=== PATIENT | male | born 1975 | race Caucasian/White ===

== ENCOUNTER 2022-06-18 12:02 | Emergency (ER) | payer OTHER, SELFPAY ==
--- NOTE | ~2022-06-18 | XR_ITS ---
EXAMINATION: XR chest 1V portable DATE: 06/18/2022 12:18 INDICATION: Chest pain TECHNIQUE: frontal view of the chest was obtained. COMPARISON: None FINDINGS: The lungs are clear with no focal airspace opacities, pulmonary edema, pleural effusion or pneumothor ax. The cardiomediastinal silhouette is normal. Visualized bones and soft tissues are unremarkable. IMPRESSION: 1. No acute cardiopulmonary disease. Reviewed, dictated and finalized at location A.
[2022-06-18 12:02] VITALS: BP 153/103; PULSE 81; RESP 18; TEMP 36.9; O2SAT 81
--- NOTE | 2022-06-18 12:04 | ECG_ITS ---
Measurements Intervals [place] Rate: 78 P: 32 AR: 139 QRS: -4 QRSD: 98 T: 63 QT: 394 QTc: 450 Interpretive Statements SINUS RHYTHM MINIMAL Q WAVES- ANTEROLATERAL LEADS BASELINE ARTIFACT- I, III, AVL BORDERLINE ECG NO PREVIOUS ECG AVAILABLE FOR COMPARISON Electronically Signed On 06-18-2022 18:48:12 CDT by Cisco Son D.O.
[2022-06-18 12:05] VITALS: PULSE 81
[2022-06-18] MEDS: ASPIRIN 81 MG CHEWABLE TABLET 324 MG PO (12:16)
[2022-06-18 12:19] LABS: Basophils Absolute Auto 0.06 K/mm3 (0.00-0.10); Basophils Percent Auto 0.8 % (0.0-1.0); Eosinophils Absolute Auto 0.26 K/mm3 (0.02-0.50); Eosinophils Percent Auto 3.6 % (1.0-6.0); Hematocrit 48.5 % (40.0-54.0); Hemoglobin 16.9 g/dL (14.0-18.0); Immature Granulocyte Absolute 0.02 K/mm3 (0.00-0.00); Immature Granulocyte Percent A 0.3 % (0.0-0.0); Lymphocytes Absolute Auto 2.38 K/mm3 (1.10-4.50); Lymphocytes Percent Auto 32.6 % (18.0-42.0); Mean Corpuscular HGB Conc 34.8 g/dL (32.0-36.0); Mean Corpuscular Hemoglobin 31.1 pg (27.0-31.0); Mean Corpuscular Volume 89.3 fL (78.0-102.0); Mean Platelet Volume 10.2 fl (8.7-11.0); Monocytes Absolute Auto 0.93 K/mm3 (0.10-0.90); Monocytes Percent Auto 12.8 % (2.0-11.0); Neutrophils Absolute Auto 3.6 K/mm3 (1.7-7.2); Neutrophils Percent Auto 49.9 % (50.0-70.0); Platelet Count Result 268 K/mm3 (150-420); Red Blood Count 5.43 M/mm3 (4.70-6.10); Red Cell Distribution Width 11.7 % (11.6-14.4); White Blood Count 7.3 K/mm3 (4.8-10.8)
[2022-06-18 12:38] LABS: Alanine Aminotransferase 63 U/L (16-63); Albumin Level 4.2 g/dL (3.4-5.0); Alkaline Phosphatase 99 U/L (46-116); Anion Gap 11 mmol/L (8-16); Aspartate Amino Transferase 27 U/L (15-37); Bilirubin,Total 0.8 mg/dL (0.00-1.00); Blood Urea Nitrogen 8 mg/dL (7-18); Calcium 9.1 mg/dL (8.5-10.1); Carbon Dioxide 25 mmol/L (21-32); Chloride 105 mmol/L (98-108); Estimated Glomerular Filt Rate > 60; Glucose 98 mg/dL (70-99); Osmolality Calculated 290 mOsm/kg (285-295); Potassium 3.8 mmol/L (3.5-5.1); Sodium 141 mmol/L (136-145); Total Protein 7.6 g/dL (6.4-8.2); Troponin I 7.3 ng/L (0.00-60.4)
[2022-06-18 12:40] LABS: Add Urine Microscopic? NO; Appearance Urine Clear (Clear); Bilirubin Urine Negative (Negative); Blood Urine Negative (Negative); Color Urine Light Yellow (Yellow); Glucose Urine UA Negative (Negative); Ketones Urine Negative (Negative); Leukocyte Esterase Ur Negative LEU/UL (Negative); Nitrate Urine Negative (Negative); Protein Urine Negative (Negative); Specific Grav Ur <= 1.005 (1.010-1.020); Urobilinogen Urine 0.2 mg/dL (0.2-1.0); pH Urine 6.5 (5.0-8.0)
[2022-06-18] MEDS: MORPHINE SULFATE (*CRX) 2 MG/ML INJ IV PUSH (12:45)
[2022-06-18] MEDS: ONDANSETRON INJ 4 MG/2 ML VIAL IV PUSH (12:47)
[2022-06-18 12:48] LABS: Amphetamine Screen Urine Negative (Negative); Barbiturate Screen Urine Negative (Negative); Benzodiazepines Screen Urine Negative (Negative); Cannabinoid Screen Urine Negative (Negative); Cocaine Screen Urine Negative (Negative); Methadone Screen Urine Negative (Negative); Opiate Screen Urine Negative (Negative); Phencyclidine Screen Urine Negative (Negative)
--- NOTE | 2022-06-18 12:52 | ED.CHESTPAIN ---
HPI - Chest Pain General Chief Complaint: Chest Pain Stated Complaint: chest pain Time Seen by Provider: 06/18/22 12:27 Source: patient Mode of arrival: ambulatory History of Present Illness HPI narrative: 46-year-old male with a history of smoking, aortic valve disease secondary to bicuspid aortic, cardiac catheterization 4 years ago, anxiety/depression, syncopal spell in the past presents to the ER with -- acute exacerbation of chronic chest pain. The patient has had intermittent chest pain for years. Today he developed substernal chest pain radiating to the shoulders. No nausea/ vomiting. No shortness of breath/lightheadedness. The pain was intermittent with episodes lasting approximately 5 seconds with spontaneous resolution. Pain is not related to activity. Pain started at rest. It is currently rated as 9/10. MD complaint: chest pain Pertinent past history: other ( Known history of aortic valve disease.) Onset (ago): day(s) ( He had chronic chest pain but severe pain started today) Timing of current episode: episodic Prior episodes: Yes Onset: during rest Pain location: substernal Pain radiation: left shoulder and right shoulder Quality: aching Relieving factors: nothing Exacerbating factors: nothing Treatment prior to arrival: none Risk Factors Coronary artery disease risk factors: smoking history Related Data Home Medications Medication Instructions Recorded Confirmed No Home Medications 06/18/22 06/18/22 Allergies Allergy/AdvReac Type Severity Reaction Status Date / Time tree nut Allergy Unknown Verified 06/18/22 15:27 Review of Systems Review of Systems: All systems reviewed & are unremarkable except as noted in HPI and below Constitutional: Constitutional: Reports as per HPI and Reports no additional constitutional complaints Eyes: Eyes: Reports as per HPI and Reports no additional eye complaints ENT: Reports system reviewed and no additional complaints, except as documented and Reports as per HPI Cardiovascular: Cardiovascular: Reports as per HPI, Reports no additional cardiovascular complaints and Reports chest pain Respiratory: Respiratory: Reports as per HPI and Reports no additional respiratory complaints Gastrointestinal: Gastrointestinal: Reports as per HPI and Reports no additional gastrointestinal complaints Genitourinary: Genitourinary: Reports no additional male genitourinary complaints and Reports as per HPI Musculoskeletal: Musculoskeletal: Reports no additional musculoskeletal complaints and Reports as per HPI Integumentary/Breasts: Skin/Breast: Reports system reviewed and no additional complaints, except as docu and Reports as per HPI Neurologic: Reports system reviewed and no additional complaints, except as documented and Reports as per HPI Psychiatric: Psychiatric: Reports no additional psychiatric complaints, Reports as per HPI, Reports anxiety and Reports depression Endocrine: Endocrine: Reports no additional endocrine complaints and Reports as per HPI Hematologic/Lymphatic: Hematologic/Lymphatic: Reports no additional hematologic/lymphatic complaints and Reports as per HPI Allergic/Immunologic: Allergic/Immunologic: Reports no additional allergic/immunologic complaints and Reports as per HPI PMFSH Past Medical History Medical History (Updated 06/18/22 @ 15:51 by Parth Tse MD) Bicuspid aortic valve Social History Social History (Updated 06/18/22 @ 13:01 by Parth Tse MD) Social History: smoker Exam Const: General: healthy appearing and no acute distress Nutritional Appearance: well nourished Orientation/consciousness: patient oriented x3 Limitations: no limitations HENMT: Head: normal to inspection Ears: external ears normal General nose exam: Normal external nose present Face and sinus: normal facial exam Mouth: Yes Normal oral and palatal mucosa present Throat: posterior oropharynx normal Eyes: Conjunctivae: conjunctivae normal
[2022-06-18 12:54] LABS: D Dimer 0.31 mg/L (0.19-0.50)
[2022-06-18] MEDS: MAG HYDROX/ALUMINUM HYD/SIMETH 30 ML, PHENobarb/HYOSCY/ATROPINE/SCOP 32.4 MG, LIDOCAINE... PO (13:13)
[2022-06-18 13:16] VITALS: BP 126/92; PULSE 74; RESP 20; O2SAT 98
--- NOTE | 2022-06-18 13:19 | PC.NURSE ---
report to AMADOU cunha no questions or concerns
--- NOTE | 2022-06-18 13:43 | PC.NURSE ---
1330 Assumed care of patient from Edgar TOBAR, pt resting on stretcher with eyes closed spouse at bedside. Pt remains on threat monitoring analyst showing NSR at this time.
--- NOTE | 2022-06-18 13:53 | PC.NURSE ---
pt states that he continues to have spasms that cause severe pain. Morphine and GI cocktail given with no relief. Pt appears comfortable resting on stretcher spouse remains at bedside.
[2022-06-18 14:00] VITALS: BP 119/81; PULSE 61; RESP 16; O2SAT 97
[2022-06-18 15:00] VITALS: BP 115/80; PULSE 57; RESP 18; O2SAT 97
[2022-06-18 15:36] LABS: Troponin I 4.9 ng/L (0.00-60.4)
[2022-06-18 15:59] VITALS: BP 119/79; PULSE 55; RESP 20; O2SAT 98
== END 2022-06-18 15:55 | disposition home or self-care (01) ==
PROVIDERS: Emergency Provider Internal Medicine Critical Care Medicine
DX: R07.9 Chest pain, unspecified (principal)
CPT/HCPCS: 36415; 71045; 80053; 80307; 81003; 84484; 85025; 85380; 93005; 96374; 96375; 99284; A9270; J2270; J2405

== ENCOUNTER 2023-01-29 15:57 | Emergency (ER) | payer OTHER, SELFPAY ==
[2023-01-29 16:14] VITALS: BP 132/97; PULSE 92; RESP 17; TEMP 36.2; O2SAT 97
--- NOTE | 2023-01-29 16:15 | ED.GENADULT ---
HPI - General Adult General Chief complaint: Wound/Laceration Stated complaint: right finger laceration Time Seen by Provider: 01/29/23 16:02 History of Present Illness HPI narrative: Serge is a 47M that presented to the ED with a laceration on his knuckle on his right index finger. He was working with sheet metal when there was an accident. There were no other injuries reported. His last tetanus shot was in 2008. Related Data Home Medications Medication Instructions Recorded Confirmed No Home Medications 06/18/22 01/29/23 Allergies Allergy/AdvReac Type Severity Reaction Status Date / Time tree nut Allergy Unknown Verified 01/29/23 16:11 Review of Systems Review of Systems: All systems reviewed & are unremarkable except as noted in HPI and below PMFSH Past Medical History Medical History Bicuspid aortic valve Social History Social History Social History: smoker Exam Const: General: healthy appearing and no acute distress Nutritional Appearance: well nourished Orientation/consciousness: patient oriented x3 HENMT: Head: normal to inspection Ears: external ears normal Face/Nose/Sinus: Normal external nose present Eyes: Conjunctivae: conjunctivae normal Pupils: Equal, round and reactive pupils present Neck: Neck: normal visual inspection Chest: Chest palpation & inspection: normal inspection of the chest Resp: Effort & Inspection: normal respiratory effort Cardio: Rate: regular rate Skin: General skin exam: normal color Other: small very shallow 1cm laceration on the PIP of the right index finger Neuro: General: patient oriented x3 and moves all extremities Extrem: General: normal to inspection Course Vital Signs Vital signs: Vital Signs Temperature 97.2 F L 01/29/23 16:14 Pulse Rate 92 01/29/23 16:14 Respiratory Rate 17 01/29/23 16:14 Blood Pressure 132/97 H 01/29/23 16:14 Pulse Oximetry 97 01/29/23 16:14 Oxygen Delivery Room Air 01/29/23 16:14 Temperature 97.2 F L 01/29/23 16:35 Pulse Rate 92 01/29/23 16:35 Respiratory Rate 17 01/29/23 16:35 Blood Pressure 132/97 H 01/29/23 16:35 Pulse Oximetry 97 01/29/23 16:35 Oxygen Delivery Room Air 01/29/23 16:35 Procedures Laceration Laceration 1: Date: 01/29/23 Time: 16:18 Site: hand Size (cm): 1 Description: linear Depth: simple, single layer ====== Skin Level ====== Skin layer closed with: dermabond ====== Subcutaneous Layer ====== ====== Muscle Layer ====== ====== Tendon Layer ====== Medical Decision Making Vital Signs Vital Signs: Vital Signs Temperature 97.2 F L 01/29/23 16:14 Pulse Rate 92 01/29/23 16:14 Respiratory Rate 17 01/29/23 16:14 Blood Pressure 132/97 H 01/29/23 16:14 Pulse Oximetry 97 01/29/23 16:14 Oxygen Delivery Room Air 01/29/23 16:14 Temperature 97.2 F L 01/29/23 16:35 Pulse Rate 92 01/29/23 16:35 Respiratory Rate 17 01/29/23 16:35 Blood Pressure 132/97 H 01/29/23 16:35 Pulse Oximetry 97 01/29/23 16:35 Oxygen Delivery Room Air 01/29/23 16:35 Discharge Plan Discharge Clinical Impression: Laceration Patient Disposition: Home, Self-Care Condition: Stable Instructions: Skin Adhesive Care (ED) Prescriptions: No Action No Home Medications Follow-up/Referrals: Laly Joe MD [Primary Care Provider] -
[2023-01-29] MEDS: TETANUS,DIPHTHERIA,AC PERTUSSIS ADULT 0.5 ML (ADACEL) IM (16:29)
[2023-01-29 16:35] VITALS: BP 132/97; PULSE 92; RESP 17; TEMP 36.2; O2SAT 97
== END 2023-01-29 16:35 | disposition home or self-care (01) ==
PROVIDERS: Emergency Provider Family Medicine; PCP Internal Medicine
DX: S61.210A Laceration without foreign body of right index finger without damage to nail, initial encounter (principal); Z23 Encounter for immunization; F17.200 Nicotine dependence, unspecified, uncomplicated; W26.8XXA Contact with other sharp object(s), not elsewhere classified, initial encounter
CPT/HCPCS: 12001; 90471; 90715; 99282

== ENCOUNTER → 2023-12-01 07:59 | Outpatient (CLI) | payer OTHER, SELFPAY ==
--- NOTE | ~2023-12-01 | CT_ITS ---
CT of the Abdomen and Pelvis: Indication: Inguinal hernia Technique: 2.5 mm axial scans were obtained through the abdomen and pelvis following intravenous adm inistration of 100 cc of Omnipaque 350. Dose reduction technique was used on this scan by utilizing a utomated exposure control and iterative reconstruction technique. The dose-length product (DLP) was 7 22.81 mGy-cm. Findings: Scans through the lung bases are unremarkable. The liver, spleen, pancreas, gallbladder, adrenals and kidneys are within normal limits. No evidence of aortic aneurysm. No lymphadenopathy. No bowel obstruction or bowel wall thickening. There is no evidence to suggest acute appendicitis. Images through the pelvis were performed. Urinary bladder unremarkable. Prostate gland and sella vesi cles are unremarkable. There are small fat-containing bilateral inguinal hernias, right larger than l eft. No ascites. Impression: Small bilateral fat-containing inguinal hernias, right larger than left. Reviewed, dictated and finalized at [facility]. IS COACH Impression: Small bilateral fat-containing inguinal hernias, right larger than left.
== END ==
PROVIDERS: PCP Internal Medicine; Visit Provider Internal Medicine
DX: K40.20 Bilateral inguinal hernia, without obstruction or gangrene, not specified as recurrent (principal)
CPT/HCPCS: 74177; Q9967

== ENCOUNTER 2024-01-17 00:31 | Day surgery (SDC) | payer OTHER, SELFPAY ==
[2024-01-09 12:11] VITALS: BMI 27.2
--- NOTE | 2024-01-09 12:17 | PC.NURSE ---
Report to the Outpatient Waiting Room, entrance under the green pavilion located off [facility], at time 0600 on date 01/17/24. Planned Procedure Time: 0730. Time changes happen often and if your time is changed the preop area will call you the afternoon before. - You and your visitor will be asked to self-screen and do not enter if you have any COVID symptoms. - A mask is optional within the hospital at this time. Patients may have clear liquids (water, carbonated beverages, clear teas, apple juice) until 3 hours prior to surgery with a maximum of 20 ounces. - No food from midnight until time of surgery Take the following medications with a SIP of water the morning of surgery: N/A DO NOT STOP ANY OF YOUR OTHER PRESCRIPTION MEDICATIONS PRIOR TO SURGERY ?EXCEPT THE FOLLOWING Medications to discontinue per physician: N/A Date to take last dose: N/A Please no make-up, nail danish, hairspray, perfume, deodorant, or body powder the day of surgery. No jewelry (including any body piercings) or valuables the day of surgery, leave them at home. Please take a shower or bath the night before, or the morning of, surgery with an antibacterial soap. Wear comfortable, loose fitting clothing. - Jewelry must be removed prior to entering the operating room. Rings and piercings that are not removed may be cut off. - The hospital will not accept responsibility for valuables. - Please leave all valuables, including medications, at home the day of surgery. If you are going home after surgery, a licensed mail truck driver must drive you home. - NO public transportation without another adult if you receive anesthesia. - We recommend that an adult stay with you for 24 hours following discharge. - We also recommend that you do not drive, make important decision, drink alcoholic beverages, or take any drugs that were not prescribed by your health care provider for at least 24 hours after your discharge time. Follow any additional instructions given to you from your surgeon. If you or anyone in your household have experienced Covid symptoms in the past week, please notify your surgeon or the nurse liaison at the phone number below for possible testing. Telephone instructions given to ANDREW FIGUEREDO and asked if any additional questions and then verbalized understanding. Patient advised to call surgeon office or pre surgery nurse liaison [phone] if any additional questions.
[2024-01-17] VITALS (9 sets, daily range): BP systolic 112–134; BP diastolic 60–87; PULSE 63–75; RESP 10–20; TEMP 36.1; O2SAT 99–100; BMI 27.6
--- NOTE | 2024-01-17 06:40 | ECG_ITS ---
Measurements Intervals [place] Rate: 66 P: 25 HI: 143 QRS: 1 QRSD: 98 T: 40 QT: 404 QTc: 424 Interpretive Statements SINUS RHYTHM NORMAL ECG COMPARED TO ECG 06/18/2022 12:04:37 NO SIGNIFICANT CHANGES Electronically Signed On 01-17-2024 14:32:58 CDT by Dewayne Sweeney M.D.
[2024-01-17] MEDS: LACTATED RINGERS 1,000 ML 30 ML IV CONT ×2 (07:10→09:45)
--- NOTE | 2024-01-17 07:15 | P.PNAN_ITS ---
Anes - Initial Pre Proc Eval Procedure: Operation Date: 01/17/24 07:30 Proposed Procedures p Laparoscopic Bilateral Inguinal Hernia Repair with Mesh, Davinci Assisted - Danny Armando DO Date/Time: 01/17/24 07:15 Surgeon: Danny Armando DO Pre Op Diagnosis: Chance Ing Hernia Patient Data Age: 48 Gender: M Height: 1.78 m Weight: 86.2 kg Allergies Allergy/AdvReac Type Severity Reaction Status Date / Time tree nut Allergy Unknown Verified 01/09/24 12:11 Home Medications Medication Instructions Recorded Confirmed Type No Home Medications 06/18/22 01/09/24 History Patient hx anesthesia problems: none Family hx anesthesia problems: none Results Review: All pre-operative results and documents have been reviewed as part of the pre- operative evaluation. COUNTS INCLUDE 234 BEDS AT THE [facility] Past Medical History Medical History (Updated 12/14/23 @ 14:02 by Caroline Hernández CMA) Bicuspid aortic valve Deviated septum Surgical History Surgical History (Updated 12/14/23 @ 13:59 by Toshia Matute CMA) History of ankle surgery Family History Family History (Updated 12/14/23 @ 14:00 by Toshia Matute CMA) Father Malignant neoplasm of prostate Social History Social History (Updated 12/14/23 @ 14:00 by Toshia Matute CMA) Social History: smoker Smoking packs per day: 0.5 Smoking cigarettes per day: 10.0 Years smoked: 35 Smoking pack-years: 17.50 Smoking status: Current every day smoker Tobacco type: cigarettes Alcohol intake: never Substance use: never Substance use type: does not use Living arrangements: with family Spiritual care concerns: No Anes - Eval Final PreProcedure Day of Procedure 01/17/24 07:15 Patient weight: normal Heart: regular rate and rhythm Lungs: clear to auscultation Airway: Mallampati scale class II Neurological: alert and oriented Last oral intake: >/= 8 hours ASA classification: III Emergent: no Anesthetic plan: proceed Anesthesia type and monitoring: general ETT and standard monitoring Results Review: All pre-operative results and documents have been reviewed as part of the pre- operative evaluation. Informed Consent: The patient's anesthetic plan and its attendant risks and benefits were discussed with the patient/family/POA. Questions were solicited and answers provided to the satisfaction of the patient/family/POA.
--- NOTE | 2024-01-17 07:19 | PM.IMHP ---
H&P: HPI History of Present Illness Date/Time: 01/17/24 07:19 Chief Complaint: bilateral inguinal hernia Narrative: 48 yo man presents for bilateral inguinal hernia repair. He reports no changes since last seen in office. Review of Systems Review of Systems: All systems reviewed & are unremarkable except as noted in HPI and below Constitutional: Constitutional: Denies chills, Denies fever(s), Denies headache(s) and Denies weight loss Eyes: Eyes: Denies change in vision ENT: Denies dizziness, Denies headache(s), Denies neck mass and Denies throat swelling Cardiovascular: Cardiovascular: Denies chest pain, Denies lightheadedness and Denies dyspnea Respiratory: Respiratory: Denies cough, Denies dyspnea and Denies wheezing Gastrointestinal: Gastrointestinal: Denies abdominal pain, Denies change in bowel habits, Denies nausea and Denies vomiting Genitourinary: Genitourinary: Denies hematuria and Denies dysuria Musculoskeletal: Musculoskeletal: Reports as per HPI Integumentary/Breasts: Skin/Breast: Reports as per HPI Neurologic: Denies dizziness and Denies headache(s) Allergic/Immunologic: Allergic/Immunologic: Denies throat swelling and Denies wheezing [facility] Past Medical History Medical History (Updated 12/14/23 @ 14:02 by Caroline Hernández CMA) Bicuspid aortic valve Deviated septum Surgical History Surgical History (Updated 12/14/23 @ 13:59 by Toshia Matute CMA) History of ankle surgery Family History Family History (Updated 12/14/23 @ 14:00 by Toshia Matute CMA) Father Malignant neoplasm of prostate Social History Social History (Updated 12/14/23 @ 14:00 by Toshia Matute CMA) Social History: smoker Smoking packs per day: 0.5 Smoking cigarettes per day: 10.0 Years smoked: 35 Smoking pack-years: 17.50 Smoking status: Current every day smoker Tobacco type: cigarettes Alcohol intake: never Substance use: never Substance use type: does not use Living arrangements: with family Spiritual care concerns: No Meds Home Medications and Allergies Home Medications Medication Instructions Recorded Confirmed Type No Home Medications 06/18/22 01/09/24 History Allergies Allergy/AdvReac Type Severity Reaction Status Date / Time tree nut Allergy Unknown Verified 01/09/24 12:11 Exam Const: General: no acute distress and alert Orientation/consciousness: patient oriented x3 HENMT: Head: normocephalic and atraumatic Ears: hearing grossly normal bilaterally Face/Nose/Sinus: Normal nares present Mouth: Yes Normal oral and palatal mucosa present Eyes: Periorbital: periorbital findings normal Sclera: sclerae normal EOM: EOMs intact bilaterally Neck: Neck: normal visual inspection, no lymphadenopathy and trachea midline Chest: Chest palpation & inspection: normal inspection of the chest Resp: Effort & Inspection: normal respiratory effort Auscultation: clear to auscultation bilaterally Cardio: Jugular venous distension: no JVD Rate: regular rate Rhythm: regular rhythm Heart sounds: S1 normal heart sound present and S2 normal heart sound present Peripheral pulses: Peripheral pulses 2+ throughout GI: Inspection: normal to inspection GI Palp: Yes Soft to palpation, No Tenderness to palpation present (GI), No Guarding due to palpation present (GI) and No Rebound tenderness present Percussion: Yes normal to percussion Auscultation: normal bowel sounds : General: Yes no CVA tenderness Scrotum: inguinal hernia bilateral (right slightly larger) Back/Spine/Pelvis: Back: no CVA tenderness Neuro: General: patient oriented x3, no focal motor deficits and CN's II-XI intact bilaterally Cognition (Neuro): normal cognition Speech: normal speech Motor exam (neuro): 5/5 motor strength present throughout Extrem: General: capillary refill normal and no clubbing, cyanosis or edema Assessment and Plan Assessment and plan (1) Bilateral inguinal junior
--- NOTE | 2024-01-17 07:21 | WPDHPUPDATE1 ---
History and Physical Update Update Date/Time: 01/17/24 07:21 History and Physical has been reviewed, including an updated exam of the patient. There are NO changes in the patient's condition. Risks, benefits, and alternatives have been discussed and questions answered. Patient agrees to proceed with procedure.
[2024-01-17] MEDS: KETOROLAC 15 MG/ML VIAL (*BKC) IV PUSH (07:24)
[2024-01-17] MEDS: ACETAMINOPHEN 500 MG TABLET 1000 MG PO (07:24)
[2024-01-17] MEDS: ceFAZolin 2 GM/D5W 50 ML 2 GM/50 ML BAG IVPB (07:33)
[2024-01-17] MEDS: BUPIVACAINE/EPINEPHRINE 0.5% 50 ML VIAL 30 ML INFILTRATE (08:01)
--- NOTE | 2024-01-17 09:04 | W.PM.PROC2 ---
Procedure Note - Detailed Date of Procedure 01/17/24 Pre-op Diagnosis Bilateral inguinal hernia Post-op Diagnosis Same (Bilateral direct inguinal hernia) Procedure Performed Laparoscopic bilateral inguinal hernia repair with mesh, da [place] assisted Surgeon Danny Armando, Anesthesia General and Local (0.5% bupivacaine with epinephrine) Indications This is a 48-year-old man who presented with bilateral inguinal hernias. He had been experiencing bilateral groin pain for several years and had noticed a bulge in his right groin for about the last 6 or 7 years. Recently this has become more symptomatic. A CT of his abdomen and pelvis showed evidence of bilateral fat containing inguinal hernias. Discussions were made with the patient about treatment options and decision was made to proceed with robotic assisted laparoscopic bilateral inguinal hernia repair with mesh. Findings Laparoscopic bilateral inguinal hernia repair was performed. The patient was found to have bilateral direct inguinal hernia defects. His bladder was somewhat distended upon entering the abdomen therefore a Washburn catheter was placed to decompress bladder completely while working in this region. A robotic transabdominal preperitoneal approach was utilized for repair. Once a wide enough preperitoneal pocket was created on each side, extra-large 3DMax mid mesh were placed on each side overlying each myopectineal orifice. No specimens were obtained for pathology. No other intra-abdominal abnormalities were seen. Description of Procedure Procedure as well as risks, benefits, and alternatives were discussed with the patient. Written consent was obtained and placed in chart prior to procedure. Patient was brought back to surgical suite. He was placed supine on operating table. Time-out was done to confirm patient and procedure. He was then intubated by Anesthesia Department. His abdomen was prepped and draped in sterile fashion using chlorhexidine prep. 0.5% bupivacaine with epinephrine was infiltrated at each location for incision. An 8 mm incision was made in the left lateral abdomen, and a 5 mm Optiview trocar was advanced through the abdominal layers under direct visualization. Once inside the abdominal cavity, carbon dioxide insufflation was used to create a pneumoperitoneum. A camera was inserted and the abdominal cavity was inspected. The patient was placed in slight Trendelenburg position. An 8 millimeter incision was made on the right lateral abdomen and an 8 millimeter trocar was inserted under direct visualization. Another 8 millimeter incision was made just superior to the umbilicus and an 8 millimeter trocar was inserted under direct visualization. The 5 mm port was then removed and this was replaced with another 8 mm robotic port. The robotic arms were brought up to the patient's bedside and secured to the ports. The camera and instruments were inserted. I then moved over to the robotic console and took control of the camera and instruments. After careful inspection of the abdominal cavity, I began scoring the peritoneum along the right lower quadrant using scissors with electrocautery. The preperitoneal plane was entered and this was carefully dissected caudally along the inferior epigastric vessels. Careful dissection with scissors with electrocautery and blunt dissection was used to continue this dissection. I dissected far enough laterally to allow for mesh placement, and also dissected medially to identify the pubic arch and Tank's ligament. The hernia sac was identified and carefully dissected posteriorly. The cord contents were also identified and the peritoneum was carefully dissected far enough posteriorly to allow for mesh placement. Once an adequate pocket was created, I then placed the mesh within the preperitoneal pocket and carefully unfolded it. The mesh was centered on the hernia defect with adequate overlap circumferentially. The inferior edge of t
[2024-01-17] MEDS: oxyCODONE HCL (*CRX) 5 MG TAB IR PO (10:25)
== END 2024-01-17 11:52 | disposition home or self-care (01) ==
PROVIDERS: PCP Internal Medicine; Visit Provider Surgery
PROC: 8E0Y4CZ Robotic Assisted Procedure of Lower Extremity, Percutaneous Endoscopic Approach (ICD-10-PCS; CPT 49650; principal; 2024-01-17 07:30)
DX: K40.20 Bilateral inguinal hernia, without obstruction or gangrene, not specified as recurrent (principal); F17.210 Nicotine dependence, cigarettes, uncomplicated
CPT/HCPCS: 49650; S2900; 36415; 86850; 86900; 86901; 93005; A9270; C1781; J0690; J1100; J1170; J1885; J2250; J2405; J2704; J3010; J7120

== ENCOUNTER 2025-01-22 12:24 | Outpatient (CLI) | payer OTHER, SELFPAY ==
--- NOTE | 2025-01-22 13:15 | NEURO_ITS ---
Impression: # Complains of burning sensation On the thoracic side along with the right upper extremity. ? # Normal Nerve Conduction Study with only subtle right Carpal Tunnel Syndrome. ? # No ulnar neuropathy. ? # Normal needle/EMG exam. ? # Clinical correlation recommended. Nerve Conduction Studies Anti Sensory Summary Table ?Stim Site NR Peak (ms) P-T Amp (?V) Site1 Site2 Delta-P (ms) Dist (cm) Jimi (m/s) Right Median Anti Sensory (2-3nd Digit) Wrist ? 2.8 23.1 Wrist 2-3nd Digit 2.8 14.0 50 Wrist ? 2.9 24.0 Wrist 2-3nd Digit 2.8 14.0 50 Right Radial Anti Sensory (Base 1st Digit) Wrist ? 2.2 15.8 Wrist Base 1st Digit 2.2 0.0 Right Ulnar Anti Sensory (5th Digit) Wrist ? 2.8 30.0 Wrist 5th Digit 2.8 14.0 50 Motor Summary Table ?Stim Site NR Onset (ms) O-P Amp (mV) Site1 Site2 Delta-0 (ms) Dist (cm) Jimi (m/s) Right Median Motor (Abd Poll Brev) Wrist ? 4.1 2.0 Elbow Wrist 5.2 30.0 58 Elbow ? 9.3 2.9 Right Ulnar Motor (Abd Dig Minimi) Wrist ? 2.7 8.0 A Elbow Wrist 5.1 31.0 61 A Elbow ? 7.8 7.1 B Elbow Wrist 3.5 21.0 60 B Elbow ? 6.2 6.3 F Wave Studies ?NR F-Lat (ms) L-R F-Lat (ms) Right Median (Mrkrs) (Abd Poll Brev) ? 28.62 Right Ulnar (Mrkrs) (Abd Dig Min) ? 29.55 EMG ?Side Muscle Nerve Root Ins Act Fibs Amp Dur Recrt Comment Right 1stDorInt Ulnar C8-T1 Nml Nml Nml Nml Nml Right Ext Indicis Radial (Post Int) C7-8 Nml Nml Nml Nml Nml Right Ext Digitorum Radial (Post Int) C7-8 Nml Nml Nml Nml Nml Right BrachioRad Radial C5-6 Nml Nml Nml Nml Nml Right PronatorTeres Median C6-7 Nml Nml Nml Nml Nml Right Abd Poll Brev Median C8-T1 Nml Nml Nml Nml Nml Right ABD Dig Min Ulnar C8-T1 Nml Nml Nml Nml Nml Right FlexPolLong Median (Ant Int) C7-8 Nml Nml Nml Nml Nml Right Abd Poll Long Radial (Post Int) C7-8 Nml Nml Nml Nml Nml Right Biceps Musculocut C5-6 Nml Nml Nml Nml Nml Right Triceps Radial C6-7-8 Nml Nml Nml Nml Nml Right Deltoid Axillary C5-6 Nml Nml Nml Nml Nml MTDD
== END 2025-01-22 12:25 | disposition home or self-care (01) ==
PROVIDERS: PCP Internal Medicine; Visit Provider Internal Medicine
DX: M79.601 Pain in right arm (principal)
CPT/HCPCS: 95886; 95909

== ENCOUNTER 2025-03-04 12:31 | Outpatient (CLI) | payer OTHER, SELFPAY ==
--- NOTE | ~2025-03-04 | CT_ITS ---
EXAMINATION: CT diagnostic chest w con DATE: 03/04/2025 13:09 INDICATION: R brachial Plexopathy TECHNIQUE: Computed tomography (CT) of the chest was performed without intravenous contrast. Addition al 3D reconstructions utilizing coronal maximum intensity projection (MIP) were performed. Automated exposure control and iterative reconstruction technique were employed. The dose-length product was 34 0.25 mGy-cm. COMPARISON: None FINDINGS: Mild discoid atelectasis posteriorly at the bilateral lung bases. No pneumonia, pulmonary nodules, pu lmonary edema, pleural effusion or pneumothorax. Heart size is normal. No pericardial effusion. Thora cic aorta is normal in caliber with no dissection. No pulmonary embolism. No pathologically enlarged thoracic lymphadenopathy. No lymphadenopathy or other abnormal mass along the course of the bilateral brachial plexus. Visualized upper abdomen is unremarkable. Bones are unremarkable. IMPRESSION: 1. Mild discoid atelectasis in the bilateral lung bases. Otherwise normal chest CT with no pathologic ally enlarged lymphadenopathy or masses along the course of the brachial plexus on either the left or right. Reviewed, dictated and finalized at location A. IMPRESSION: 1. Mild discoid atelectasis in the bilateral lung bases. Otherwise normal chest CT with no pathologically enlarged lymphadenopathy or masses along the course of the brachial plexus on either the left or right.
== END 2025-03-04 12:32 | disposition home or self-care (01) ==
LOC: MICIMG 12:31
PROVIDERS: PCP Internal Medicine; Visit Provider Internal Medicine
DX: G58.9 Mononeuropathy, unspecified (principal); R91.8 Other nonspecific abnormal finding of lung field
CPT/HCPCS: 71260; Q9967

== ENCOUNTER 2025-03-12 17:36 | Emergency (ER) | payer OTHER, SELFPAY ==
--- NOTE | ~2025-03-12 | XR_ITS ---
XR chest 1V portable Ordering provider: Parth Tse MD History: 49 years Male with . chest pain . Comparison: None. FINDINGS: MEDIASTINUM: The cardiac silhouette is not enlarged. LUNGS: No infiltrates, effusions or pneumothorax. OTHER: No free air under the diaphragm. IMPRESSION: No acute cardiopulmonary pathology. Reviewed, dictated and finalized at location A.
[2025-03-12 17:37] VITALS: BP 143/92; PULSE 89; RESP 16; TEMP 37.1; O2SAT 98
--- OUTSIDE RECORDS SUMMARY | 2025-03-12 17:40 | XMS_ITS | Continuity of Care Document ---
Author Name [facility] Organization [facility] Care Team Providers Care Environmental Services Associate Name Role Phone [facility] Unavailable Unavailable Problems Combined list of problems from Department of Defense and Veterans Affairs facilities. It does not include entries that were removed or entered in error. Problem Status Onset Date Problem Type Date of Resolution Comments Source Pain in left ankle and joints of left foot Active 6 Condition [facility] Migraine with aura, not intractable, without status migrainosus Active 5 Condition [facility] Bicuspid aortic valve Active Condition [facility] Cervicalgia Active Condition [facility] Deviated nasal septum Active Condition [facility] Heartburn Active Condition [facility] History of multiple allergies [facility] Hyperlipidemia Active Condition [facility] Impingement syndrome of right shoulder region Active Condition [facility] Knee pain Active Condition [facility] Migraine Active Condition [facility] Migraine with aura Active Condition [facility] OA - Osteoarthritis (SCT [id number]) Active Condition [facility] Obstructive sleep apnea Active Condition [facility] Obstructive Sleep Apnea of Adult (SCT [id number]) Active Condition [facility] Pain of left ankle joint Active Condition [facility] Pain of right shoulder joint Active Condition [facility] Pain radiating to right shoulder Active Condition [facility] Posttraumatic stress disorder Active Condition [facility] Sleep Apnea (SCT [id number]) Active Condition [facility] Circadian rhythm sleep disorder, irregular sleep wake type Active Condition [facility] Insomnia, unspecified Active Condition [facility] Syncope and collapse Active Condition [facility] Parent Education: Active Condition [facility] DYSPHAGIA Active Condition [facility] joint pain, localized in the knee Active Condition [facility] ALLERGIC RHINITIS Active Condition [facility] MIGRAINE HEADACHE Active Condition [facility] DEVIATED NASAL SEPTUM (ACQUIRED) Active Condition [facility] visit for: issue repeat prescription for medication Inactive Condition DoD cough Active Condition [facility] SINUSITIS Active Condition [facility] headache Inactive Condition [facility] ESOPHAGEAL REFLUX Active Condition DoD visit for: administrative purpose Inactive Condition DoD RHINITIS Active Condition DoD VASOVAGAL SYNCOPE Active Condition DoD tobacco use Active Condition DoD BICUSPID AORTIC VALVE Active Condition DoD AORTIC REGURGITATION CONGENITAL BICUSPID VALVE Active Condition DoD DYSLIPIDEMIA Active Condition Do[facility] visit for: screening exam Inactive Condition DoD visit for: request expert evidence Inactive Condition DoD multiple environmental allergies Inactive Condition DoD drip or drainage down throat from above Inactive Condition DoD TENDONITIS EXTENSOR HALLUCIS LONGUS LEFT Inactive Condition DoD PATELLOFEMORAL DYSFUNCTION Inactive Condition Do[facility] Vaccines Prophylactic Need Against Influenza Inactive Condition DoD Need For Vaccination Typhoid Inactive Condition DoD Vaccines Prophylactic Need Against Smallpox Inactive Condition DoD NICOTINE DEPENDENCE Active Condition DoD visit: ears/hearing exam for hearing conservation, treatment Active Condition DoD visit for: routine eye exam Active Condition DoD ASSESSMENT OF PATIENT CONDITION WORK STATUS Active Condition DoD ACUTE BRONCHITIS Inactive Condition DoD BRONCHITIS Inactive Condition DoD Patient Education Active Condition DoD CONDITIONS INFLUENCING HEALTH STATUS Active Condition DoD SEIZURE DISORDER Active Condition DoD UPPER RESPIRATORY INFECTION Active Condition DoD Murmurs Active Condition DoD PALPITATIONS Active Condition DoD visit for: screening exam cardiovascular disorders Inactive Condition DoD CHEST PAIN Active Condition DoD visit for: follow-up exam Inactive Condition DoD fainting (syncope) Active Condition DoD transient alteration of awareness Active Condition DoD visit for: occupational health / fitness exam Active Condition DoD NO PSYCHIATRIC DIAGNOSIS ON AXIS III Active Condition DoD NO PSYCHIATRIC DIAGNOSIS ON AXIS II Active Condition DoD NO PSYCHIATRIC DIAGNOSIS OR CONDITION ON AXIS I Active Condition DoD ACUTE REACTION TO STRESS Inactive Condition DoD SINUSITIS ACUTE Inactive Condition DoD visit for: services physical Active Condition DoD Need For Vaccination MMR Inactive Condition DoD Vaccines Prophylactic Need Against Bacterial Diseases Inactive Condition DoD Vaccines Prophylactic Need Inactive Condition DoD Vaccines Prophylactic Need Against Viral Diseases Inactive Condition DoD Vaccines Prophylactic Need Against Combinations Of Diseases Active Condition DoD visit for: ears / hearing exam Active Condition DoD ASSESSMENT OF PATIENT CONDITION WORK-RELATED Active Condition DoD visit for: screening exam pulmonary tuberculosis Active Condition [facility] Diagnosis: ICD-10-CM G43.109 Migraine with aura, not intractable, w/o status migrainosus Active Diagnosis . [facility] Diagnosis: ICD-10-CM G43.711 Chronic migraine w/o aura, intractable, w status migrainosus Active Diagnosis [facility] Medications Combined list of outpatient medications from Department of Defense and Veterans Affairs facilities.Medications provided include 1) outpatient medications from the last 15 months, and 2) patient-reported medications. Medication Details Route Status Patient Instructions Prescription Expires Prescription Number Last Dispense Date Ordering Provider Order Date Order Qty Source acetaminoph en (U/D) 500 MG ORAL TAB TAKE TWO TABLETS BY MOUTH THREE TIMES A DAY NEEDED FOR HEADACHE CAUTION: DO NOT EXCEED 4000MG PER DAY ACETAMIN OPHEN (APAP) FROM ALL MEDS. 02/20/2025 [id number] [facility] ACETAMINOPH EN 500MG TAB TAKE TWO TABLETS BY MOUTH THREE TIMES A DAY NEEDED FOR HEADACHE CAUTION: DO NOT EXCEED 4000MG PER DAY ACETAMIN OPHEN (APAP) FROM ALL MEDS. ORAL 02/20/2025 [id number] [place] [address] [facility] famotidine (U/D) 20 MG ORAL TAB TAKE ONE TABLET BY MOUTH ONCE A DAY FOR GASTROES OPHAGEAL REFLUX DISEASE 05/20/2024 [id number] [facility] FAMOTIDINE 20MG TAB TAKE ONE TABLET BY MOUTH ONCE A DAY FOR GASTROES OPHAGEAL REFLUX DISEASE ORAL 05/20/2024 [id number] [address] [facility] FREMANEZUMA B-VFRM 225MG/1.5ML AUTOINJECTO R INJECT 225MG/1. 5ML UNDER THE SKIN EVERY MONTH FOR MIGRAINE HEADACHE SUBCUT ANEOUS ACTIVE 04/13/2025 [id number] JOJOLETY HANDLEY [address] [facility] HYDROCODONE -ACETAMINOP HEN (HYDROCODON E/ACETAMINO PHEN), 5MG-325MG, TABLET, ORAL, AMNEAL PHARMACE, 100 ea. BOTTLE Active [id number] 2023 10 Pharmac y Data Transac tion Service Facilit y IRX: [id number] H Nicotine Transdermal System 21 mg per 24 Hr Transdermal APPLY 1 PATCH TO SKIN SITE EVERY MORNING FOR TOBACCO CESSATIO N REMOVE OLD PATCH BEFORE APPLYING NEW ONE. ROTATE SITES. DO NOT SMOKE WHILE WEARING PATCH. 03/21/2024 [id number] VEST, [place] 2023 28 [facility] n IRX: [id number] H Nicotine Transdermal System 21 mg per 24 Hr Transdermal APPLY 1 PATCH TO SKIN SITE EVERY MORNING FOR TOBACCO CESSATIO N REMOVE OLD PATCH BEFORE APPLYING NEW ONE. ROTATE SITES. DO NOT SMOKE WHILE WEARING PATCH. 03/21/2024 [id number] [facility], [place] 2023 28 [facility] Loratadine (Alavert ODT) Tablet 10 mg Oral TAKE ONE TABLET BY MOUTH ONCE A DAY FOR ALLERGIC RHINITIS ON EMPTY STOMACH 02/20/2025 [id number] [place]ST, [place] 2023 90 [facility] n LORATADINE 10MG TAB TAKE ONE TABLET BY MOUTH ONCE A DAY FOR ALLERGIC RHINITIS ON EMPTY STOMACH ORAL 02/20/2025 [id number] [place] [address] [facility] NICOTINE 21MG/24HRS PATCH APPLY 1 PATCH TO SKIN SITE EVERY MORNING FOR TOBACCO CESSATIO N REMOVE OLD PATCH BEFORE APPLYING NEW ONE. ROTATE SITES. DO NOT SMOKE WHILE WEARING PATCH. TRANSD ERMAL 03/21/2024 [id number] 4 [place],[place] [address] [facility] RIMEGEPANT 75MG TAB,ORAL DISINTEGRAT ING TAKE ONE TABLET UNDER THE TONGUE ONCE A DAY NEEDED FOR MIGRAINE HEADACHE USE DRY HANDS TO PEEL FOIL TO REMOVE TABLET. DO NOT PUSH TABLET THROUGH FOIL. MAXIMUM: 75MG IN 24 HOURS. SUBLIN GUAL ACTIVE 04/13/2025 [id number] [address] [facility] Allergies, Adverse Reactions, Alerts Combined list of allergies from Department of Defense and Veterans Affairs facilities. It does not include entries that were removed or entered in error. Substance Category Reaction Severity Reaction type Status Date Reported Comments Source No Known Allergies Drug allergy (disorder) active 02/18/2009 [facility] [employer] Immunizations Combined list of available immunizations from the Department of Defense and Veterans Affairs facilities. 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 influenza, injectable, quadrivalent- pf 2016 [id number] 150 GlaxoSmithKli ne complet ed influenza , injectabl e, quadrival ent-pf 08/30/17 Given Ambulat ory Pharmac y Influenza, injectable, quadrivalent, preservative free 1 2016 [id number] 150 SmithKline (SKB) complet ed Influenza , injectabl e, quadrival ent, preservat murali free DoD INFLUENZA, SEASONAL, INJECTABLE [address] [facility] influenza, injectable, quadrivalent- pf 2015 [id number] 150 Seqirus complet ed influenza , injectabl e, quadrival ent-pf 08/05/16 Given Ambulat ory Pharmac y Influenza, injectable, quadrivalent, preservative free 1 2015 [id number] 150 Seqirus (SEQ) comple t ed Influenza , injectabl e, quadrival ent, preservat murali free DoD influenza, seasonal, injectable-pf 2014 [id number] 140 CSL Behring complet ed influenza , seasonal, injectabl e-pf 08/28/15 Given Ambulat ory Pharmac y Influenza, seasonal, injectable, preservative free 1 2014 [id number] 140 [employer]. (CSL) complet ed Influenza , seasonal, injectabl e, preservat murali free DoD tuberculin purified protein derivative 2014 zzLef t Arm TRANSCR IBED 96 complet ed tuberculi n purified protein derivativ e 02/18/15 Given Ambulat ory Pharmac y tuberculin skin test; purified protein derivative solution, intradermal 0 2014 JOSE CRUZ BLUM 96 Transcribed (TRS) complet ed tuberculi n skin test; purified protein derivativ e solution, intraderm al DoD influenza, injectable, quadrivalent 2013 [id number] sanofi pasteur complet ed influenza , injectabl e, quadrival ent 09/23/14 Given Ambulat ory Pharmac y anthrax vaccine 2013 Jennifer santiago Arm TRANSCR IBED 24 Emergent [employer] complet ed anthrax vaccine 09/23/14 Given Ambulat ory Pharmac y anthrax vaccine 5 2013 CHRIS ESTRELLA M 24 [employer] [place] ([facility]) complet ed anthrax vaccine DoD influenza, injectable, quadrivalent, contains preservative 1 2013 [id number] 158 Sanofi Pasteur ([facility]) complet ed influenza , injectabl e, quadrival ent, contains preservat murali DoD typhoid Vi capsular polysaccharid e vac 2013 [id number] sanofi pasteur complet ed typhoid Vi capsular polysacch aride vac 02/07/14 Given Ambulat ory Pharmac y anthrax vaccine 2013 [id number] 24 [employer] complet ed anthrax vaccine 02/07/14 Given Ambulat ory Pharmac y anthrax vaccine 4 2013 [id number] 24 [facility] [employer] [place] ([facility]) complet ed anthrax vaccine DoD typhoid Vi capsular polysaccharid e vaccine 1 2013 [id number] 101 Sanofi Pasteur (PMC) complet ed typhoid Vi capsular polysacch aride vaccine DoD influenza virus vaccine, whole virus 2013 Jennifer santiago Arm [id number] Novartis Pharmaceutica ls complet ed influenza virus vaccine, whole virus 01/24/14 Given Ambulat ory Pharmac y influenza virus vaccine, whole virus 0 2013 WILLIE LOPEZ [id number] 16 Novartis Pharmaceutica l [place]. (NOV) complet ed influenza virus vaccine, whole virus DoD influenza, seasonal, injectable-pf 2011 [id number] 140 sanofi pasteur complet ed influenza , seasonal, injectabl e-pf 08/14/12 Given Ambulat ory Pharmac y Influenza, seasonal, injectable, preservative free 1 2011 [id number] 140 Sanofi Pasteur (PMC) complet ed Influenza , seasonal, injectabl e, preservat murali free DoD influenza, seasonal, injectable 2010 UNK 141 Unknown complet ed influenza , seasonal, injectabl e 07/21/11 Given Ambulat ory Pharmac y Influenza, seasonal, injectable 1 2010 UNK 141 Unknown (UNK) comple t ed Influenza , seasonal, injectabl e DoD tuberculin purified protein derivative 2010 UNK 96 Unknown complet ed tuberculi n purified protein derivativ e 05/06/11 Given Ambulat ory Pharmac y anthrax vaccine 2010 UNK 24 Unknown complet ed anthrax vaccine 03/06/11 Given Ambulat ory Pharmac y anthrax vaccine 3 2010 UNK 24 Unknown (UNK) comple t ed anthrax vaccine DoD anthrax vaccine 2009 [id number] 24 [employer] complet ed anthrax vaccine 09/22/10 Given Ambulat ory Pharmac y influenza virus vaccine, live 2009 [id number] [employer] comple t ed influenza virus vaccine, live 09/22/10 Given Ambulat ory Pharmac y anthrax vaccine 2 2009 [id number] [employer]gent [employer] [place] ([facility]) complet ed anthrax vaccine DoD influenza virus vaccine, live, attenuated, for intranasal use 1 2009 [id number] 111 [employer] [place]. (MED) complet ed influenza virus vaccine, live, attenuate d, for intranasa l use DoD typhoid Vi capsular polysaccharid e vac 2009 [id number] 101 sanofi pasteur complet ed typhoid Vi capsular polysacch aride vac 08/17/10 Given Ambulat ory Pharmac y anthrax vaccine 2009 [id number] 24 [employer] complet ed anthrax vaccine 08/17/10 Given Ambulat ory Pharmac y vaccinia (smallpox) vaccine 2009 VV04-00 3A 75 [place] complet ed vaccinia (smallpox ) vaccine 08/17/10 Given Ambulat ory Pharmac y anthrax vaccine 1 2009 [id number] 24 [employer] [place] ([facility]) complet ed anthrax vaccine DoD vaccinia (smallpox) vaccine 1 2009 VV04-00 3A 75 [facility] ([facility]) complet ed vaccinia (smallpox ) vaccine DoD typhoid Vi capsular polysaccharid e vaccine 1 2009 [id number] 101 Sanofi Pasteur (PMC) complet ed typhoid Vi capsular polysacch aride vaccine DoD measles/mumps /rubella virus vaccine 2009 [id number] 03 [employer] complet ed measles/m umps/rube lla virus vaccine 05/04/10 Given Ambulat ory Pharmac y tuberculin purified protein derivative 2009 zzLef t Arm [id number] 96 Unknown complet ed tuberculi n purified protein derivativ e 05/04/10 Given Ambulat ory Pharmac y measles, mumps and rubella virus vaccine 1 2009 [id number] 03 Merck (MSD) complet ed measles, mumps and rubella virus vaccine DoD tuberculin skin test; purified protein derivative solution, intradermal 1 2009 Unknown, Provider [id number] 96 Other (OTH) complet ed tuberculi n skin test; purified protein derivativ e solution, intraderm al DoD influenza virus vaccine,split 2009 [id number] 15 sanofi pasteur complet ed influenza virus vaccine,s plit 02/23/10 Given Ambulat ory Pharmac y hepatitis A-hepatitis B vaccine 2009 [id number] 7BA 104 GlaxoSmithKli nc complet ed hepatitis A-hepatit is B vaccine 02/23/10 Given Ambulat ory Pharmac y influenza virus vaccine, split virus (incl. purified surface antigen)-reti red CODE 1 2009 [id number] 15 Sanofi Pasteur (PMC) complet ed influenza virus vaccine, split virus (incl. purified surface antigen)- retired CODE DoD hepatitis A and hepatitis B vaccine 3 2009 [id number] 7BA 104 [facility] (SKB) complet ed hepatitis A and hepatitis B vaccine DoD Novel Influenza-H1N 1-09,live virus,nasal 2009 125 complet ed Novel Influenza -[id number], live virus,armando al 11/11/09 Given Ambulat ory Pharmac y Novel Influenza-H1N 1-09, live virus for nasal administratio n 1 2009 125 () complet ed Novel Influenza -L8P9-11, live virus for nasal administr ation DoD Novel influenza-H1N 1-09, injectable 2008 [id number] 127 Medimmune Inc comple t ed Novel influenza -D2M8-29, injectabl e 09/24/09 Given Ambulat ory Pharmac y Novel influenza-H1N 1-09, injectable 1 2008 [id number] 127 MedImmune, Inc. (MED) complet ed Novel influenza -B6H7-71, injectabl e DoD hepatitis A-hepatitis B vaccine 2008 [id number] 0AA 104 GlaxoSmithKli ne complet ed hepatitis A-hepatit is B vaccine 04/02/09 Given Ambulat ory Pharmac y hepatitis A and hepatitis B vaccine 2 2008 [id number] 0AA 104 SmithKline (SKB) complet ed hepatitis A and hepatitis B vaccine DoD tetanus, diphtheria, acellular pertu is 2008 [id number] 115 GlaxoSmithKli ne complet ed tetanus, diphtheri a, acellular pertussis 02/20/09 Given Ambulat ory Pharmac y meningococcal A,C,Y,W-135 (MCV4P) 2008 [id number] 114 sanofi pasteur complet ed meningoco ccal A,C,Y,W-1 35 (MCV4P) 02/20/09 Given Ambulat ory Pharmac y poliovirus vaccine, inactivated 2008 [id number] 10 sanofi pasteur complet ed polioviru s vaccine, inactivat ed 02/20/09 Given Ambulat ory Pharmac y tuberculin purified protein derivative 2008 [id number] 96 sanofi pasteur complet ed tuberculi n purified protein derivativ e 02/20/09 Given Ambulat ory Pharmac y measles/mumps /rubella virus vaccine 2008 [id number] 03 Merck & Company Inc complet ed measles/m umps/rube lla virus vaccine 02/20/09 Given Ambulat ory Pharmac y hepatitis A-hepatitis B vaccine 2008 [id number] 0AA 104 GlaxExcela HealthithKli ne complet ed hepatitis A-hepatit is B vaccine 02/20/09 Given Ambulat ory Pharmac y measles, mumps and rubella virus vaccine 1 2008 [id number] 03 Merck (MSD) complet ed measles, mumps and rubella virus vaccine DoD poliovirus vaccine, inactivated 1 2008 [id number] 10 Sanofi Pasteur (PMC) complet ed polioviru s vaccine, inactivat ed DoD hepatitis A and hepatitis B vaccine 1 2008 [id number] 0AA 104 SmithKline (SKB) complet ed hepatitis A and hepatitis B vaccine DoD meningococcal polysaccharid e (groups A, C, Y and W-135) diphtheria toxoid conjugate vaccine (MCV4P) 1 2008 [id number] 114 Sanofi Pasteur (PMC) complet ed meningoco ccal polysacch aride (groups A, C, Y and W-135) diphtheri a toxoid conjugate vaccine (MCV4P) DoD tetanus toxoid, reduced diphtheria toxoid, and acellular pertu is vaccine, adsorbed 1 2008 [id number] 9AA 115 SmithKline (SKB) complet ed tetanus toxoid, reduced diphtheri a toxoid, and acellular pertussis vaccine, adsorbed DoD varicella virus vaccine 1 2008 UNK 21 Unknown (UNK) Not Given varicella virus vaccine DoD Results Combined list of recent chemistry, hematology and other laboratory results from Department of Defense and Veterans Affairs, ranging from 15 months to all on record, depending upon the facility. Order Name Results Value Reference Range Date Interpretation Specimen Comments Source RENAL PANEL CREATININE [MASS/VOLUM E] IN SERUM OR PLASMA 1.14 mg/dL 0.7 - 1.3 02/19 Specimen Type: PLASMA Comment: LDL calculation invalid when Triglycerid e exceeds 250 mg/dl Ordering Provider: RODRIGO YANCEY Report Released Date/Time: February 20, 2024 02:30 PM Reporting Lab: [facility] [address] [facility] [phone] Performing Lab: [facility] [phone] [facility] RENAL PANEL UREA NITROGEN [MASS/VOLUM E] IN SERUM OR PLASMA 11.9 mg/dL 9.0 - 25.0 02/19 Specimen Type: PLASMA Comment: LDL calculation invalid when Triglycerid e exceeds 250 mg/dl Ordering Provider: RODRIGO YANCEY Report Released Date/Time: February 20, 2024 02:30 PM Reporting Lab: [facility] [address] [facility] [phone] Performing Lab: [facility] [address] [place] [phone] [facility] RENAL PANEL GLUCOSE [MASS/VOLUM E] IN SERUM OR PLASMA 88 mg/dL 72 - 99 02/19 Specimen Type: PLASMA Comment: LDL calculation invalid when Triglycerid e exceeds 250 mg/dl Ordering Provider: RODRIGO YANCEY Report Released Date/Time: February 20, 2024 02:30 PM Reporting Lab: [facility] [address] [facility] [phone] Performing Lab: [facility] [address] [facility] [phone] [facility] RENAL PANEL SODIUM [MOLES/VOLU ME] IN SERUM OR PLASMA 138 meq/L 136 - 145 02/19 Specimen Type: PLASMA Comment: LDL calculation invalid when Triglycerid e exceeds 250 mg/dl Ordering Provider: RODRIGO YANCEY Report Released Date/Time: February 20, 2024 02:30 PM Reporting Lab: [facility] [address] [facility] [phone] Performing Lab: [facility] [address] [facility] [phone] [facility] RENAL PANEL POTASSIUM [MOLES/VOLU ME] IN SERUM OR PLASMA 4.0 meq/L 3.5 - 5 02/19 Specimen Type: PLASMA Comment: LDL calculation invalid when Triglycerid e exceeds 250 mg/dl Ordering Provider: RODRIGO YANCEY Report Released Date/Time: February 20, 2024 02:30 PM Reporting Lab: [facility] [address] [place] [phone] Performing Lab: [facility] [address] [facility] [phone] [facility] RENAL PANEL CHLORIDE [MOLES/VOLU ME] IN SERUM OR PLASMA 104 meq/L 98 - 107 02/19 Specimen Type: PLASMA Comment: LDL calculation invalid when Triglycerid e exceeds 250 mg/dl Ordering Provider: RODRIGO YANCEY Report Released Date/Time: February 20, 2024 02:30 PM Reporting Lab: [facility] [address] [place] [phone] Performing Lab: [facility] [address] [place] [phone] [facility] RENAL PANEL CARBON DIOXIDE, TOTAL [MOLES/VOLU ME] IN SERUM OR PLASMA 25 meq/L 22 - 31 02/19 Specimen Type: PLASMA Comment: LDL calculation invalid when Triglycerid e exceeds 250 mg/dl Ordering Provider: RODRIGO YANCEY Report Released Date/Time: February 20, 2024 02:30 PM Reporting Lab: [facility] [address] [facility] [phone] Performing Lab: [facility] [address] [facility] [phone] [facility] RENAL PANEL CALCIUM [MASS/VOLUM E] IN SERUM OR PLASMA 10.1 mg/dL 8.4 - 10.4 02/19 Specimen Type: PLASMA Comment: LDL calculation invalid when Triglycerid e exceeds 250 mg/dl Ordering Provider: RODRIGO YANCEY Report Released Date/Time: February 20, 2024 02:30 PM Reporting Lab: [facility] [address] [place] [phone] Performing Lab: [facility] [address] [facility] [phone] [facility] RENAL PANEL PHOSPHATE [MASS/VOLUM E] IN SERUM OR PLASMA 3.7 mg/dL 2.3 - 4.7 02/19 Specimen Type: PLASMA Comment: LDL calculation invalid when Triglycerid e exceeds 250 mg/dl Ordering Provider: RODRIGO YANCEY Report Released Date/Time: February 20, 2024 02:30 PM Reporting Lab: [facility] [address] [facility] [address] Performing Lab: [facility] [address] [facility] [address] [facility] RENAL PANEL ALBUMIN [MASS/VOLUM E] IN SERUM OR PLASMA 4.7 g/dL 3.4 - 5 02/19 Specimen Type: PLASMA Comment: LDL calculation invalid when Triglycerid e exceeds 250 mg/dl Ordering Provider: RODRIGO YANCEY Report Released Date/Time: February 20, 2024 02:30 PM Reporting Lab: [facility] [address] [facility] [address] Performing Lab: [facility] [address] [facility] [address] [facility] RENAL PANEL GLOMERULAR FILTRATION RATE/1.73 SQ M.PREDICTED [VOLUME RATE/AREA] IN SERUM, PLASMA OR BLOOD BY CREATININE- BASED FORMULA (CKD-EPI 2020) 80.3 60 02/19 Specimen Type: PLASMA Comment: LDL calculation invalid when Triglycerid e exceeds 250 mg/dl Ordering Provider: RODRIGO YANCEY Report Released Date/Time: February 20, 2024 02:30 PM Reporting Lab: [facility] [address] [facility] [address] Performing Lab: [facility] [address] [facility] [phone] [place] [address] MAGNESIUM MAGNESIUM [MASS/VOLUM E] IN SERUM OR PLASMA 1.9 mg/dL 1.6 - 2.6 02/19 Specimen Type: PLASMA Comment: LDL calculation invalid when Triglycerid e exceeds 250 mg/dl Ordering Provider: RODRIGO YANCEY Report Released Date/Time: February 20, 2024 02:30 PM Reporting Lab: [facility] [address] [facility] [address] Performing Lab: [place] [address] [facility] [address] [facility] HGA1C HEMOGLOBIN A1C/HEMOGLO BIN.TOTAL IN BLOOD 5.6 4.0 - 6.0 02/19 Specimen Type: BLOOD No comment entered. Ordering Provider: RODRIGO YANCEY Report Released Date/Time: February 20, 2024 02:30 PM Reporting Lab: [facility] [address] [facility] [address] Performing Lab: [facility] [address] [facility] [address] [facility] LIPID PANEL (STL) CHOLESTEROL [MASS/VOLUM E] IN SERUM OR PLASMA 222 mg/dL 0 - 200 02/19 H Specimen Type: PLASMA Comment: LDL calculation invalid when Triglycerid e exceeds 250 mg/dl Ordering Provider: RODRIGO YANCEY Report Released Date/Time: February 20, 2024 02:30 PM Reporting Lab: [facility] [address] [place] [address] Performing Lab: [place] [address] [facility] [address] [facility] LIPID PANEL (STL) TRIGLYCERID E [MASS/VOLUM E] IN SERUM OR PLASMA 304 mg/dL 0 - 150 02/19 H Specimen Type: PLASMA Comment: LDL calculation invalid when Triglycerid e exceeds 250 mg/dl Ordering Provider: RODRIGO YANCEY Report Released Date/Time: February 20, 2024 02:30 PM Reporting Lab: [place] [address] [facility] [address] Performing Lab: [address] [address] [facility] LIPID PANEL (STL) CHOLESTEROL IN LDL [MASS/VOLUM E] IN SERUM OR PLASMA BY DIRECT ASSAY 122 mg/dL 100 02/19 Specimen Type: PLASMA Comment: LDL calculation invalid when Triglycerid e exceeds 250 mg/dl Ordering Provider: RODRIGO YANCEY Report Released Date/Time: February 20, 2024 02:30 PM Reporting Lab: [address] [address] Performing Lab: [address] [address] [facility] LIPID PANEL (STL) CHOLESTEROL IN LDL [MASS/VOLUM E] IN SERUM OR PLASMA BY CALCULATION commen tmg/dL 02/19 Specimen Type: PLASMA Comment: LDL calculation invalid when Triglycerid e exceeds 250 mg/dl Ordering Provider: RODRIGO YANCEY Report Released Date/Time: February 20, 2024 02:30 PM Reporting Lab: [address] [address] Performing Lab: [address] [address] [facility] LIPID PANEL (STL) CHOLESTEROL IN HDL [MASS/VOLUM E] IN SERUM OR PLASMA 38 mg/dL 40 02/19 L Specimen Type: PLASMA Comment: LDL calculation invalid when Triglycerid e exceeds 250 mg/dl Ordering Provider: RODRIGO YANCEY Report Released Date/Time: February 20, 2024 02:30 PM Reporting Lab: [address] [address] Performing Lab: [address] [address] [facility] CBC LEUKOCYTES [#/VOLUME] IN BLOOD BY AUTOMATED COUNT 7.0 10*3/u L 3.6 - 11.2 02/19 Specimen Type: BLOOD No comment entered. Ordering Provider: RODRIGO YANCEY Report Released Date/Time: February 20, 2024 02:30 PM Reporting Lab: [address] [address] Performing Lab: [address] [phone] [place] [address] CBC ERYTHROCYTE S [#/VOLUME] IN BLOOD BY AUTOMATED COUNT 5.58 10*6/u L 4.10 - 5.70 02/19 Specimen Type: BLOOD No comment entered. Ordering Provider: RODRIGO YANCEY Report Released Date/Time: February 20, 2024 02:30 PM Reporting Lab: [address] [address] Performing Lab: [address] [phone] [place] [address] CBC HEMOGLOBIN [MASS/VOLUM E] IN BLOOD 17.4 g/dL 13.1 - 16.8 02/19 H Specimen Type: BLOOD No comment entered. Ordering Provider: RODRIGO YANCEY Report Released Date/Time: February 20, 2024 02:30 PM Reporting Lab: [address] [address] Performing Lab: [address] [address] [facility] CBC HEMATOCRIT [VOLUME FRACTION] OF BLOOD 49.6 38.2 - 48.4 02/19 H Specimen Type: BLOOD No comment entered. Ordering Provider: RODRIGO YANCEY Report Released Date/Time: February 20, 2024 02:30 PM Reporting Lab: [address] [address] Performing Lab: [address] CBC MCV [ENTITIC VOLUME] BY AUTOMATED COUNT 88.9 fL 80.0 - 100.0 02/19 Specimen Type: BLOOD No comment entered. Ordering Provider: RODRIGO YANCEY Report Released Date/Time: February 20, 2024 02:30 PM Reporting Lab: [place] [address] Performing Lab: [address] [phone] CBC MCH [ENTITIC MASS] BY AUTOMATED COUNT 31.2 pg 27.0 - 34.0 02/19 Specimen Type: BLOOD No comment entered. Ordering Provider: RODRIGO YANCEY Report Released Date/Time: February 20, 2024 02:30 PM Reporting Lab: [address] [address] Performing Lab: [address] [address] CBC MCHC [MASS/VOLUM E] BY AUTOMATED COUNT 35.1 g/dL 33.0 - 36.0 02/19 Specimen Type: BLOOD No comment entered. Ordering Provider: RODRIGO YANCEY Report Released Date/Time: February 20, 2024 02:30 PM Reporting Lab: [place] [address] Performing Lab: [address] [phone] CBC PLATELETS [#/VOLUME] IN BLOOD BY AUTOMATED COUNT 264 10*3/u L 150 - 400 02/19 Specimen Type: BLOOD No comment entered. Ordering Provider: RODRIGO YANCEY Report Released Date/Time: February 20, 2024 02:30 PM Reporting Lab: [facility] [address] [facility] [address] Per[address] Lab: [facility] [address] [facility] [address] [facility] CBC PLATELET MEAN VOLUME [ENTITIC VOLUME] IN BLOOD BY AUTOMATED COUNT 10.7 fL 7.5 - 11.2 02/19 Specimen Type: BLOOD No comment entered. Ordering Provider: RODRIGO YANCEY Report Released Date/Time: February 20, 2024 02:30 PM Reporting Lab: [facility] [address] [place] [address] Performing Lab: [address] [phone] [place] [address] CBC ERYTHROCYTE DISTRIBUTIO N WIDTH [RATIO] BY AUTOMATED COUNT 12.0 11.8 - 15.1 02/19 Specimen Type: BLOOD No comment entered. Ordering Provider: RODRIGO YANCEY Report Released Date/Time: February 20, 2024 02:30 PM Reporting Lab: [facility] [address] [place] [address] Performing Lab: [facility] [address] [place] [address] [facility] CBC LYMPHOCYTES /100 LEUKOCYTES IN BLOOD BY AUTOMATED COUNT 43 02/19 Specimen Type: BLOOD No comment entered. Ordering Provider: RODRIGO YANCEY Report Released Date/Time: February 20, 2024 02:30 PM Reporting Lab: [facility] [address] [place] [address] Performing Lab: [facility] [address] [place] [address] [facility] CBC MONOCYTES/1 00 LEUKOCYTES IN BLOOD BY AUTOMATED COUNT 12 02/19 Specimen Type: BLOOD No comment entered. Ordering Provider: RODRIGO YANCEY Report Released Date/Time: February 20, 2024 02:30 PM Reporting Lab: [facility] [address] [facility] [address] Performing Lab: [facility] [address] [facility] [address] [facility] CBC NEUTROPHILS /100 LEUKOCYTES IN BLOOD BY AUTOMATED COUNT 40 02/19 Specimen Type: BLOOD No comment entered. Ordering Provider: RODRIGO YANCEY Report Released Date/Time: February 20, 2024 02:30 PM Reporting Lab: [facility] [address] [facility] [address] Performing Lab: [facility] [address] [facility] [address] [facility] CBC EOSINOPHILS /100 LEUKOCYTES IN BLOOD BY AUTOMATED COUNT 4 02/19 Specimen Type: BLOOD No comment entered. Ordering Provider: RODRIGO YANCEY Report Released Date/Time: February 20, 2024 02:30 PM Reporting Lab: [facility] [address] [facility] [address] Performing Lab: [facility] [address] [facility] [facility] [address] [facility] CBC BASOPHILS/1 00 LEUKOCYTES IN BLOOD BY AUTOMATED COUNT 1 02/19 Specimen Type: BLOOD No comment entered. Ordering Provider: RODRIGO YANCEY Report Released Date/Time: February 20, 2024 02:30 PM Reporting Lab: [place] [address] [facility] [address] Performing Lab: [facility] [address] [facility] [address] [facility] CBC LYMPHOCYTES [#/VOLUME] IN BLOOD BY AUTOMATED COUNT 2.98 10*3/u L 0.77 - 4.50 02/19 Specimen Type: BLOOD No comment entered. Ordering Provider: RODRIGO YANCEY Report Released Date/Time: February 20, 2024 02:30 PM Reporting Lab: [place] [address] [facility] [address] Performing Lab: [address]. [address] [address] [facility] CBC MONOCYTES [#/VOLUME] IN BLOOD BY AUTOMATED COUNT 0.84 10*3/u L 0.19 - 0.80 02/19 H Specimen Type: BLOOD No comment entered. Ordering Provider: RODRIGO YANCEY Report Released Date/Time: February 20, 2024 02:30 PM Reporting Lab: [place] [address] Performing Lab: [address] [address] [facility] CBC NEUTROPHILS [#/VOLUME] IN BLOOD BY AUTOMATED COUNT 2.77 10*3/u L 2.10 - 8.00 02/19 Specimen Type: BLOOD No comment entered. Ordering Provider: RODRIGO YANCEY Report Released Date/Time: February 20, 2024 02:30 PM Reporting Lab: [place] [phone] Performing Lab: [address] [phone] CBC EOSINOPHILS [#/VOLUME] IN BLOOD BY AUTOMATED COUNT 0.31 10*3/u L 0.00 - 0.60 02/19 Specimen Type: BLOOD No comment entered. Ordering Provider: RODRIGO YANCEY Report Released Date/Time: February 20, 2024 02:30 PM Reporting Lab: [address] [address] Performing Lab: [address] [address] [facility] CBC BASOPHILS [#/VOLUME] IN BLOOD BY AUTOMATED COUNT 0.07 10*3/u L 0.00 - 0.20 02/19 Specimen Type: BLOOD No comment entered. Ordering Provider: RODRIGO YANCEY Report Released Date/Time: February 20, 2024 02:30 PM Reporting Lab: [place] [phone] Performing Lab: [facility] [address] [facility] [address] [facility] Encounters Combined list of: 1) Encounters from Department of Veterans Affairs facilities going backup to the last 18 months, not all VA inpatient encounters are included; 2) Encounters from the Department of Defense facilities going backup to 280 months. Location Location Details Encounter Type Encounter Number Reason For Visit Attending Provider ADM Date DC Date Status Disposition Source [employer](MATT C Post Immunizat ion) OUTPATIENT [id number] IET PPD ROMULO MANN Chase 02/18 Released w/o Limitations [employer](M AHC Post Immuniz ation) [employer](IEP Hearing Conservat ion) OUTPATIENT [id number] ANUJ MENDOZA 02/18 Released w/o Limitations [employer](I EP Hearing Conserv ation) [employer](MATT C Post Immunizat ion) OUTPATIENT [id number] IET IMMUNIZ ATIONS TEVIN MOE 02/20 Released w/o Limitations [employer](M AHC Post Immuniz ation) [employer](PES Optometry -Trainee) OUTPATIENT [id number] KELLY LLAMAS 02/20 Released w/o Limitations [employer](P ES Optomet ry-[place] nee) [employer](TMC Ambulator y) OUTPATIENT [id number] SRINATH HOLLEY 03/03 Released w/o Limitations [employer](T MC Ambulat ory) [employer](TMC Ambulator y) OUTPATIENT [id number] DILLON LIU 03/05 Released with Work/Duty Limitations [employer](T MC Ambulat ory) Mita gaxiola [facility] Anita OLGUIN(Neurol ogy) OUTPATIENT [id number] JENNIFER PEREZ 04/10 Released w/o Limitations Mita machuca [facility] Anita OLGUIN(Neur ology) Mita gaxiola [facility] Gamaliel OLGUIN(Neurol ogy) OUTPATIENT [id number] EEG PER JENNIFER RAYGOZA 04/10 Released w/o Limitations Mita machuca [facility] Gamaliel OLGUIN(Neur ology) [facility](TMC Ambulator y) OUTPATIENT [id number] DILLON LIU 04/14 Released with Work/Duty Limitations [facility](T MC Ambulat ory) Mita Costa r [facility] Gamaliel OLGUIN(Cardio logy) OUTPATIENT [id number] GXT JOSEP ORDONEZ 04/16 Released w/o Limitations Mita machuca [facility] Gamaliel OLGUIN(Card iology) Mita Costa r [facility] Gamaliel OLGUIN(Cardio logy) OUTPATIENT [id number] EVENT ON TIM TYSON 04/16 Released w/o Limitations Mita machuca [facility] Gamaliel OLGUIN(Card iology) [facility](C Ambulator y) OUTPATIENT [id number] DILLON LIU 04/21 Released with Work/Duty Limitations [facility](T MC Ambulat ory) [facility] Ambulator y) OUTPATIENT [id number] DILLON LIU 04/27 Released with Work/Duty Limitations [facility](T MC Ambulat ory) Mita Costa r [facility] Gamaliel OLGUIN(Cardio logy) OUTPATIENT [id number] EVENT MONITOR OFF TERELL NICOLAS 04/30 Released w/o Limitations Mita machuca [facility] Gamaliel OLGUIN(Card iology) Mita Costa r [facility] Gamaliel (Neurol ogy) TELE CONSULT [id number] MRI Results JENNIFER WILLIS 05/05 Mita machuca [facility] Gamaliel OLGUIN(Neur ology) Mita Costa r [facility] Gamaliel OLGUIN(Cardio logy) OUTPATIENT [id number] new pt TERELL NICOLAS 05/07 Released w/o Limitations Mita machuca [facility] Gamaliel OLGUIN(Card iology) Mita Costa r [facility] Gamaliel OLGUIN(Neurol ogy) OUTPATIENT [id number] sleep deprive d JENNIFER WILLIS 05/12 Released w/o Limitations Mita machuca [facility] Gamaliel OLGUIN(Neur ology) Mita gaxiola [facility](Cardio logy) OUTPATIENT [id number] TERELL NICOLAS 05/13 Released w/o Limitations Mita machuca [facility](Card iology) [facility] Ambulator y) OUTPATIENT [id number] WILLIAM KAM 05/18 Released with Work/Duty Limitations [facility](T MC Ambulat ory) [facility] Case Managemen t) TELE CONSULT [id number] Request for info JADIEL VELASQUEZ 05/18 Medical Group(W TU Case Managem ent) [facility] Ambulator y) OUTPATIENT [id number] DILLON LIU 05/21 Released w/o Limitations [facility] [employer](T Ambulat ory) KRISTI Lee(Health Promotion s) OUTPATIENT [id number] SELF CARE CLASS ALLAN MANUEL 07/29 Released w/o Limitations KRISTI Garcia([facility] Promoti ons) KRISTI Lee(Family Practice Combined) OUTPATIENT [id number] EXCESSI VE COUGHIN G YAMILETH MENJIVAR 08/31 Released w/o Limitations [facility] Mita gaxiola [facility]) OUTPATIENT [id number] flu symptom s ANGELICA OVALLE 04/30 Sick at Home/Quarter s Mita machuca [facility]) Mita gaxiola [facility](Soldie r Readiness Procedure ) OUTPATIENT [id number] INPRO- MMR, PPD LEE ANN DAVE 05/04 Released w/o Limitations Mita machuca [facility](Sold ier Readine ss Procedu re) Mita gaxiola [facility]) TELE CONSULT [id number] F/u chest X ray ANGELICA OVALLE 05/17 Mita machuca [facility]) Mita gaxiola [facility] [place]Medica [place] Exam [place]) OUTPATIENT [id number] [facility] part 2 ALESSANDRA JARAMILLO 07/05 Released w/o Limitations Mita Eliaso wer [facility] [place](Med[place] radha Exam [place]) Mita Olivere r [facility] [place]) OUTPATIENT [id number] hearing test LESIA ELIZALDEGY 07/05 Released w/o Limitations Mita Eliaso [facility] [place]) Mita Olivere r [facility] [place](Medica [place] Exam [place]) OUTPATIENT [id number] [facility] part 3 Tami MCDONALD 07/28 Released w/o Limitations Mita Eliaso [facility] [place](Medi radha Exam [place]) Mita Costa r [facility] [place](Soldie r Readiness Procedure ) OUTPATIENT [id number] POR - TY, Anthrax #1, SPX MAREN [place] 08/17 Released w/o Limitations [facility] [place] [place]er Readine ss Procedu re) Mita Olivere r [facility] [place](Soldie r Readiness Procedure ) OUTPATIENT [id number] SPX RDG PRIYA SHANKS 08/24 [facility]ased w/o Limitations [facility] [place] Readine ss Procedu re) [facility]( [facility]) OUTPATIENT [id number] in-proc GINA Nunes 09/22 Released w/o Limitations [facility] ) [facility] OUTPATIENT [id number] 10/21 Released with Work/Duty Limitations [facility] OUTPATIENT [id number] 02/24 Released with Work/Duty Limitations [facility] OUTPATIENT [id number] 04/14 Released w/o Limitations Theater Facilit y [facility]( Hearing Program [place]) OUTPATIENT [id number] Hearing Exam ANA MARÍA MARIA 09/05 Released w/o Limitations [facility](Hea ring Program [place]) [facility], [place] BETH [place]arg[place](Emerge ncy Room T-Sheets) OUTPATIENT [id number] [facility] JAMIE WOLFE 01/08 Released w/o Limitations [facility], [employer]Fina gency Room T-Sheet s) [facility], [facility] B[facility] [place]arg[place]([facility]) OUTPATIENT [id number] ER f/u 3-187 GIO WARE Precious 01/10 Released w/o Limitations [facility], [place]([facility]) [facility], [place] B[facility] [place]([facility]) TELE CONSULT [id number] Notes Entered by: JEANIEMIGUEL Precious 13 Jan 2012 0705 ------- ------- ------- ------- -- labwork GIO WARE 01/12 [facility], [place]([facility]) [facility], [facility](Consul tant/Card iology) OUTPATIENT [id number] [facility] (syncop e) WILBERTO MCGUIRE 01/29 Released w/o Limitations [facility], [place](Cons ultant/ Cardiol ogy) [facility], [place] [facility](Referr al Managemen t) OUTPATIENT [id number] Notes Entered by: DUNIA MELÉNDEZ 30 Jan 2012 1444 ------- ------- ------- ------- -- HOLTER MONITOR DUNIA MELÉNDEZ 01/29 Released w/o Limitations [facility], [employer](Refe rral Managem ent) [facility], [place] [facility] [place]([facility]) TELE CONSULT [id number] Notes Entered by: SABINO MATHEW 01 Feb 2012 1028 ------- ------- ------- ------- -- EKG results ? JEANIE GIO Lang 01/31 [facility], [employer]([facility]) [facility], [place], BETH([facility]) OUTPATIENT [id number] heart issue, JEANIEMIGUELJose Lang 03/06 Released with Work/Duty Limitations [facility], [employer]) [facility], [place], BETH(Consul tant/Card iology) OUTPATIENT [id number] Notes Entered by: MARY ANN BEEBE 09 Mar 2012 1037 ------- ------- ------- ------- -- bictk d aortic valve WILBERTO MCGUIRE 03/09 Released w/o Limitations [facility], [employer](Cons ultant/ Cardiol ogy) [facility], [place], [place]([facility]) OUTPATIENT [id number] f/u cardiol ogy, JEANIEMIGUELJose Lang 03/28 Released w/o Limitations [facility], [employer]) [facility], [place], BETH([facility]) TELE CONSULT [id number] Notes Entered by: MIGUEL WARE 29 Mar 2012 0647 ------- ------- ------- ------- -- Sinus xrays GIO WARE 03/29 [facility], [employer]) [facility], [place], BETH([facility]) OUTPATIENT [id number] chest pain SAM BRAY 04/24 Released w/o Limitations [facility], [employer]) [facility], BETH [place]([facility]) OUTPATIENT [id number] migrain e. CHASE OLU Cyndi Durant 05/14 Released w/o Limitations [facility], [employer]) [facility], [employer]) OUTPATIENT [id number] coughin g/sever e vomitin g Rear D GIO WARE A 07/17 Sick at Home/Quarter s [facility], [employer], [employer]) OUTPATIENT [id number] PHA part II Rear D [facility] KATHE GARCÍA F 07/30 Released w/o Limitations [facility], [employer]) [facility], [place], BETH([facility]) OUTPATIENT [id number] POSSIBL E SINUS INFECTI ONS KATHE GARCÍA 01/16 Released w/o Limitations [facility], [employer]) [facility], [employer] Hearing Program) OUTPATIENT [id number] annual KELLY FORD 02/12 Released w/o Limitations [facility], [employer] Hearing [facility] ) [facility], [place](Otolar yngology) OUTPATIENT [id number] DEVIATE D NASAL SEPTUM (ACQUIR ED) DAVY MACK 02/20 Released w/o Limitations [facility], [employer]) [facility], [employer], [place]([facility]) OUTPATIENT [id number] allergi es [facility] SRINATH BENSON 03/21 Released w/o Limitations [facility], [employer]([facility]) [facility], [employer], [place]([facility]) OUTPATIENT [id number] Rt kneepai n TERELL FITZPATRICK Adria 05/28 Released w/o Limitations [facility], [employer] [facility]) [facility], [place]([facility]) OUTPATIENT [id number] heart issues TERELL FITZPATRICK Adria 06/13 Released with Work/Duty Limitations [facility], [employer] [place]([facility]) [facility], [place](Emerge ncy Room T-Sheets) OUTPATIENT [id number] Notes Entered by: Jack TYSON T 21 Jun 2013 0948 ------- ------- ------- ------- -- [facility] KELLY TYSON 06/21 Released w/o Limitations [facility], [place] T-Sheet s) [facility], [place](Consul tant/Card iology) OUTPATIENT [id number] Notes Entered by: EVA MARQUIS 26 Jun 2013 1347 ------- ------- ------- ------- -- echo reading ABHILASH ARREDONDO P. 06/26 Released w/o Limitations [facility], [employer]iol [place] [facility], [place](Consul tant/Card iology) OUTPATIENT [id number] BICUSPI D AORTIC VALVE ABHILASH ARREDONDO P. 07/02 Released w/o Limitations [facility], [employer] [facility], [place](Consul tant/Card iology) OUTPATIENT [id number] CHEST PAIN ABHILASH ARREDONDO P. 07/03 Released w/o Limitations [facility], [employer] [facility], [place]) TELE CONSULT [id number] Notes Entered by: ISELA StoneJUAN FLORES Lang 03 Jul 2013 0959 ------- ------- ------- ------- -- Dx Bicuspi d Aortic Valve is to report to [facility] for treatme nt EFRENTERELL NORMAN Adria 07/03 [facility] [employer]) [facility], [employer]) OUTPAT[place] [id number] Chest Pain/ Dr. Quinones/ JOSEP Guerrero I 07/16 Released w/o Limitations [facility], [employer] [facility], [employer]) [place] [id number] EGD with dilatio JOSEP Tracy I 07/25 Released w/o Limitations [facility], [employer] [facility], [employer]) TELE CONSULT [id number] ABHILASH ARREDONDO 07/27 [facility], [employer] [facility], [employer] TELE CONSULT [id number] Notes Entered by: Bhargav QUINONES I 01 Aug 2013 1708 ------- ------- ------- ------- -- biopsy result JOSEP QUINONES I 08/01 [facility], [employer]) RAJENDRA Bailey([facility] OUTPATIENT [id number] heart cond/pr BRANDON Tinsley 11/09 Released with Work/Duty Limitations RAJENDRA Jones([facility]) [facility] [employer] OUTPATIENT [id number] immuniz ations WILLIE LOPEZ 01/24 Released w/o Limitations [facility], [place] [facility] [place]) [place] [id number] follow up ABHILASH ARREDONDO 02/03 Released w/o Limitations [facility] [place] [facility] [place] OUTPATIENT [id number] per TERELL Craig 02/04 Released w/o Limitations [facility], [place] [facility] [place]) [place] [id number] annual DAYAN GALO 02/07 Released w/o Limitations [facility] [place] [facility] [place] ANTELMO-P [place]( [facility] M01A Car Red) TELE CONSULT [id number] Notes Entered by: TOMMY BROWNING 20 Mar 2014 1351 ------- ------- ------- ------- -- new patient JABIERCUAUHTEMOCChase CAMACHO 03/20 [facility]A ELENAGOOD -PYONGT [facility]K([facility] M01A Car Red) [facility] [place] [place] AN[place]ELMO-[place]( [facility] M01A Car Red) OUTPATIENT [id number] heart conditi on w/ silent migrain es JABIERCUAUHTEMOCChase CAMACHO 06/02 Released w/o Limitations [place] ANTELMO -PY[place]GT AEK([facility] M01A Car Red) [place] [place] ANTELMO-P [place]( [facility] M01A Car Red) TELE CONSULT [id number] Notes Entered by: YONG HAMILTON 10 Jun 2014 1003 ------- ------- ------- ------- -- ISSUE WITH REFERRA L/Migra adan JABIER, BETOChase CAMACHO 06/10 [facility] [place] -[place] [place]([facility] M01A Car Red) [facility] [place]( [facility]) OUTPATIENT [id number] glaucom a work up.[id number] 10.CHUCHO Kennedy 06/12 Released w/o Limitations [facility] [place] [facility]) [facility] [place]( [facility] M01A Car Red) OUTPATIENT [id number] f/u test results ROCHELLE HINKLEPrecious [place] 07/07 Released w/o Limitations [facility] [place] [facility]([facility] M01A Car Red) [facility] [place]( [facility] M01A Car Red) OUTPATIENT [id number] f/u mri SHAMEKA HINKLE 07/08 Released w/o Limitations [facility] [place] [facility]([facility] M01A Car Red) [facility] [place]( [facility] M01A Car Red) OUTPATIENT [id number] f/u ENDY hospita l MICAH CARMONA 07/16 Released w/o Limitations [facility] [place] [facility]([facility] M01A Car Red) [facility] [place]( [facility] M01A Car Red) OUTPATIENT [id number] f/u after gumi frances visit MICAH CARMONA 08/18 Released w/o Limitations [facility] [place]([facility] M01A Car Red) [facility] [place]( [facility] M01A Car Red) OUTPATIENT [id number] profile review MICAH CARMONA 09/15 Released w/o Limitations [facility] [place] [facility]([facility] M01A Car Red) [facility] [place]( [facility] M01A Car Red) TELE CONSULT [id number] Notes Entered by: OWEN PETERS 17 Sep 2014 1041 ------- ------- ------- ------- -- Company laughed at profile . Will be on CQ tonight w/ 3 addt'l shifts in [employer]. MICAH CARMONA 09/17 [facility] [place] [facility]([facility] M01A Car Red) [facility] [place]( [facility] M01A Car Red) OUTPATIENT [id number] heart issue MICAH CARMONA 09/26 Released w/o Limitations [facility] [place] -[place]([facility] M01A Car Red) [facility] [place]( Neurology Clinic [facility]) OUTPATIENT [id number] MIGRAIN E HEADACH E DEOTERESITA 09/29 Released w/o Limitations [facility] -[facility](Kat rology Clinic [facility]) [facility] [place]( [facility] M01A Car Red) OUTPATIENT [id number] f/u MICAH CARMONA 09/29 Released w/o Limitations [facility]ODY D [place] [facility]([facility] M01A Car Red) [facility] [place]( Immunizat ions Jade) OUTPATIENT [id number] Notes Entered by: TIM CHERRY 30 Sep 2014 1344 ------- ------- ------- ------- -- CHRIS TRIMBLE 09/30 [facility] Limitations [facility](Imm unizati ons [facility] ) [facility]( After Hours Clinic [facility]) TELE CONSULT [id number] Notes Entered by: CECE DEAN 02 Oct 2014 1327 ------- ------- ------- ------- -- 911 Call/Lo ss of SHAMEKA Zayas 10/02 [facility]ODY D [place] -[facility](Aft er Hours Clinic Jade ) [facility] [place]( [facility] M01A Car Red) TELE CONSULT [id number] Notes Entered by: MAGGIE SHEEHAN 06 Oct 2014 1416 ------- ------- ------- ------- -- ENDY ER Record 02 Oct 2014. XENIA WILLARD 10/06 [facility] D [place] [facility] M01A Car Red) [facility] D [place]( [facility] M01A Car Red) TELE CONSULT [id number] Notes Entered by: MAGGIE SHEEHAN 20 Oct 2014 1246 ------- ------- ------- ------- -- ENDY ER Report 07 Oct 2014 MICAH CARMONA 10/20 [facility] [place] [facility] M01A Car Red) [facility] M01A Car Red) OUTPATIENT [id number] f/u lab MICAH CARMONA 10/30 Released w/o Limitations [facility]ODY D [place] [facility]([facility] M01A Car Red) [facility] D [place]( [facility] M01A Car Red) OUTPATIENT [id number] needs referra l to Delfino Doherty for cardiol MICAH Chen 12/25 Released w/o Limitations [facility]ODY D [place] [facility]([facility] M01A Car Red) [facility] D [place]( [facility] M01A Car Red) TELE CONSULT [id number] Notes Entered by: ADRI BIRD 19 Jan 2015 1802 ------- ------- ------- ------- -- ENDY report greta rodriguez on [id number] NATY LUDWIG 01/19 [facility]ODY D [place] [facility]([facility] M01A Car Red) [facility] D [place]( [facility] M01A Car Red) OUTPATIENT [id number] f/u for cardiol ogy from MICAH Durand Cha 01/27 Released w/o Limitations [facility] -[facility]([facility] M01A Car Red) [facility] [place]( [facility] M01A Car Red) OUTPATIENT [id number] F/U Medicat ion MICAH CARMONA 02/16 Released w/o Limitations [facility] [place] [facility]([facility] M01A Car Red) [facility] D [place]( Immunizat ions Jade) OUTPATIENT [id number] Notes Entered by: MARTHA BLUM 18 Feb 2015 1053 ------- ------- ------- ------- -- JOSE CRUZ MARQUEZ 02/18 Released w/o Limitations [facility] RODY D [place] -[facility](Imm unizati ons Jade ) [facility] [place] OUTPATIENT [id number] review medicat ions MAHESHSTEPHANIE TSANG Precious 05/04 Released with Work/Duty Limitations [facility] [place] [place] [facility] [place] [id number] annual TAMI MODI 05/07 Released w/o Limitations [facility], [facility] [place]([facility] ) [facility] [place] S[place] TELE CONSULT [id number] Notes Entered by: Jack PHIPPS 19 May 2015 1601 ------- ------- ------- ------- -- Cardiac medicat ion refill request ; Migrain e medicat ion refill request BINDU PHIPPS 05/19 [facility], [facility] [place]([facility] S01A Strike) [facility], [place](Consul tant/Card iology) OUTPATIENT [id number] BICUSPI D AORTIC VALVE ABHILASH ARREDONDO PSierra 05/20 Released w/o Limitations [facility], [place] [facility], [place](Consul tant/Card iology) OUTPATIENT [id number] Notes Entered by: MARY ANN BEEBE 01 Jun 2015 0824 ------- ------- ------- ------- -- HOLABHILASH WOODWARD PSierra 06/01 Released w/o Limitations [facility], [place] [facility], [place](Consul tant/Card iology) OUTPATIENT [id number] Notes Entered by: GREOGRY RICH 15 Jun 2015 1036 ------- ------- ------- ------- -- ECHO READING ABHILASH ARREDONDO PSierra 06/15 Released w/o Limitations [facility], [place] [facility], [place](Consul tant/Card iology) OUTPATIENT [id number] Notes Entered by: MARY ANN BEEBE 15 Jun 2015 1513 ------- ------- ------- ------- -- Event Monitor ABHILASH ARREDONDO P. 06/15 Released w/o Limitations [facility], [place]) [facility], [place]([facility] S01A Strike) OUTPATIENT [id number] MALDONADO Bernardo 06/18 Released w/o Limitations [facility], [place] [facility], [place](Consul tant/Card iology) OUTPATIENT [id number] bi cusp AV ABHILASH ARREDONDO P. 06/29 Released w/o Limitations [facility], [place] [facility], [place], [place](Consul tant/Card iology) OUTPATIENT [id number] F/U for test results ARNULFOABHILASH P. 07/07 Released w/o Limitations [facility], [place] [facility], [place]([facility] S01A Strike) TELE CONSULT [id number] Notes Entered by: ORI HORN 09 Jul 2015 0731 ------- ------- ------- ------- -- SM present s in clinic for nasea and vomitti ngBINDU PEREZ 07/09 [facility], [place], [place]([facility] S01A Strike) [facility], [place]([facility]H S01A Strike) TELE CONSULT [id number] Notes Entered by: ORI HORN 13 Jul 2015 0751 ------- ------- ------- ------- -- Appt LUDWIN Woods 07/13 Other Not Elsewhere Classified [facility], [place], [place]([facility] S01A Strike) [facility], [place], [place]([facility]H S01A Strike) TELE CONSULT [id number] Notes Entered by: ORI HORN 16 Jul 2015 0832 ------- ------- ------- ------- -- Appoint ment LUDWIN Woods 07/16 Other Not Elsewhere Classified [facility], [employer]) [facility], [place]([facility]BI Neurology ) OUTPATIENT [id number] EPILEPS Y AND RECURRE NT SEIZURE S [facility] 07/20 Released w/o Limitations [facility], [employer]) [facility] [employer] [place] [id number] EEG SHIRIN [facility] 07/22 Released w/o Limitations [facility], [employer] [facility], [employer] [place]) OUT[place]IENT [id number] f/u medicat ion and referra l consult DOMINGUEZ MEDRANO 08/18 Released w/o Limitations [facility], [employer]) [facility] [employer] [place] OUT[place] [id number] [facility]ased w/o Limitations [facility] [employer] [facility], [employer]) [place] [id number] f/u from cardiol ogy and neurolo gy [facility] MALIK JUAQUIN 09/08 Released w/o Limitations [facility] [employer] [facility] [employer] [place] OUTPATIENT [id number] Follow up for sleep issues [facility] MALIK TWELVE MILE 09/29 Released w/o Limitations [facility], [employer] [facility], [employer] TELE CONSULT [id number] Notes Entered by: PRIETO CASEY 26 Oct 2015 1240 ------- ------- ------- ------- -- Abnorma l x-ray [facility] JAMA JUAQUIN 10/26 [facility] [employer] [facility], [employer] [place] TELE CONSULT [id number] Notes Entered by: CED PERDOMO 13 Nov 2015 0909 ------- ------- ------- ------- -- SM is request ing results for MRI for left ankle MALIK CHOPRA JUAQUIN 11/13 [facility], [facility] [place] S[place]A [place]) [facility] [place] OUTPATIENT [id number] Notes Entered by: HANK ELIZABETH 13 Nov 2015 1110 ------- ------- ------- ------- -- [facility]-Ca re Facilit ation: Initial Contact Note GULSHAN ELIZABETH 11/13 Released w/o Limitations [facility] [place] S[place] [facility] [facility] [place] TELE CONSULT [id number] Notes Entered by: HANK ELIZABETH 18 Nov 2015 1210 ------- ------- ------- ------- -- [facility]-Ca re Facilit ation: [facility] emergency department s MALIK CHOPRA TWELVE MILE 11/18 [facility], [facility] [place] S[place]A [place]) [facility] [place] TELE CONSULT [id number] Notes Entered by: HANK ELIZABETH 18 Nov 2015 1216 ------- ------- ------- ------- -- [facility]-Ca re Facilit ation: Admin Note GULSHAN ELIZABETH 11/18 Other Not Elsewhere Classified [facility] [place] [facility] [place]) OUT[place] [id number] left ankle gave out SHAUN DEL VALLE 11/19 Released with Work/Duty Limitations [facility] [employer] [facility] [place] OUTPATIENT [id number] Pain in left ankle and joints of left foot SHARATH MENDOZA 11/26 Released w/o Limitations [facility], [employer] [facility], [employer] [place]) OUT[place]IENT [id number] f/u for left ankle MALDONADO MAC D 12/07 Released w/o Limitations [facility], [employer] [facility], [employer] [place] TELE CONSULT [id number] Notes Entered by: HANK ELIZABETH 07 Dec 2015 0937 ------- ------- ------- ------- -- [facility]-Ca re Facilit ation: Follow Up Contact Note GULSHAN ELIZABETH 12/07 Other Not Elsewhere Classified [facility] [employer] [facility], [employer], [place](Orthop edics) OUTPATIENT [id number] saw William; left ankle THEA VEGA 12/14 Released w/o Limitations [facility], [employer] [facility], [employer], [place](Orthop edics) OUTPATIENT [id number] F/U LT Ankle SHARATH MENDOZA 12/27 Released with Work/Duty Limitations [facility], [employer] [facility] [employer] [place] Physical Therapy) OUTPATIENT [id number] CADY BUNCH 01/17 Released with Work/Duty Limitations [facility] [employer] [place] Physica l Therapy ) [facility] [employer] [place] Physical Therapy) OUTPATIENT [id number] KELI COOPER T 01/19 Released w/o Limitations [facility], [employer] Physica l Therapy ) [facility], [place] Physical Therapy) OUTPATIENT [id number] KELI COOPER 01/21 Released w/o Limitations [facility], [employer] Physica l Therapy ) [facility], [place](Orthop [place]ics) OUTPATIENT [id number] fu lt ankle after PT SHARATH MENDOZA 01/21 Released w/o Limitations [facility], [employer] [facility], [place](Consul tant/Card iology) TELE CONSULT [id number] Notes Entered by: LILLY GALINDO 22 Jan 2016 1343 ------- ------- ------- ------- -- Yvonne ce for Surgery ABHILASH ARREDONDO 01/21 [facility] [employer]) [facility], [place] Physical Therapy) OUTPATIENT [id number] KELI COOPER 01/24 Released w/o Limitations [facility], [employer] Physica l Therapy ) [facility] [place]([facility] Physical Therapy) OUTPATIENT [id number] KELI COOPER 01/26 Released w/o Limitations [facility], [employer] Physica l Therapy ) [facility] [place] Physical Therapy) OUTPATIENT [id number] KELI COOPER 01/31 Released w/o Limitations [facility] [employer] Physica l Therapy ) [facility] [place] Physical Therapy[facility] OUTPATIENT [id number] ALLISON KELI T 02/01 Released w/o Limitations [facility] [employer] Physica l Therapy ) [facility], [employer]) [place] [id number] per ABHILASH Faria P. 02/03 Released w/o Limitations [facility], [employer] [facility] [employer] TELE CONSULT [id number] Notes Entered by: BLANCO MULLER 04 Feb 2016 1259 ------- ------- ------- ------- -- SM states he wants to discuss compone ntsa of his current care plan that have TERELL Galarza 02/03 [facility] [employer]) [facility] [employer] [place] Physical Therapy) OUTPATIENT [id number] ALLISONKELI 02/08 Released w/o Limitations [facility] [employer] Physica l Therapy ) [facility] [employer] OUT[place]IENT [id number] Per TERELL Baker 02/09 Released w/o Limitations [facility], [employer] [facility] [employer]) OUT[place]IENT [id number] ABHILASH Washington P. 02/09 Released w/o Limitations [facility], [employer] [facility] [employer] [place] Physical Therapy) OUTPATIENT [id number] COOPERKELI 02/10 Released w/o Limitations [facility] [employer] Physica l Therapy ) [facility], [place](Consul tant/Card iology) OUTPATIENT [id number] Notes Entered by: GREGORY RICH 12 Feb 2016 0819 ------- ------- ------- ------- -- ABHILASH BROWN 02/11 Released w/o Limitations [facility], [place] Cardiol [place]) [facility], [place]([facility] Physical Therapy) OUTPATIENT [id number] CADY BUNCH 02/14 Released with Work/Duty Limitations [facility], [place] Physica l Therapy ) [facility], [place](Orthop edics) OUTPATIENT [id number] surg [id number] -l ankle THEA VEGA 02/15 Released w/o Limitations [facility] [employer] [place] [facility], [place](Physic al Therapy) OUTPATIENT [id number] ADDI Pagan 02/15 Released w/o Limitations [facility], [place]Phys [place] ) [facility], [place](Gastro enterolog y) OUTPATIENT [id number] Other chest pain LOUIE KENYON 02/16 Released w/o Limitations [facility] [employer] [place]Ag [place]y) [facility], [place](Consul tant/Card iology) OUTPATIENT [id number] follow- up mra, [place] THOMAS P. 02/21 Released w/o Limitations [facility], [employer] [place] [facility], [place](AMH S01A Strike) TELE CONSULT [id number] Notes Entered by: MIKEL SWENSON 22 Feb 2016 1053 ------- ------- ------- ------- -- cardiol ogy consult TERELL AVELAR 02/21 [facility] [employer]) [facility] [employer] [place] OUT[place] [id number] SLEEP EVAL SHIRLEY FROM [id number] MYRONJUANITA 03/16 Released w/o Limitations [facility] [employer] [facility] [employer] [place] [id number] Other chest pain ABHILASH TYSON 03/17 Released w/o Limitations [facility], [employer] [facility] [employer] [place] [id number] Notes Entered by: MICHAEL ROBLES 18 Mar 2016 0927 ------- ------- ------- ------- -- acup for headach es NADJA NOLEN 03/18 Released w/o Limitations [facility] [employer] [facility] [facility] [employer] OUTPATIENT [id number] psg per BINTA August 03/24 Released w/o Limitations [facility], [employer]) [facility], [employer], [place] TELE CONSULT [id number] Notes Entered by: LOUIE KENYON 28 Mar 2016 1216 ------- ------- ------- ------- -- Sesay pH study NADJA BOYD 03/28 Referred for Appointment [facility], [employer], [place](Ag [place]) [facility], [employer]) OUTPATIENT [id number] Dizzine ss and giddine ss JOSEP MAYAONY 04/04 Released w/o Limitations [facility], [employer]) [facility], [employer] S[facility]A [place] TELE CONSULT [id number] Notes Entered by: MIKEL SWENSON 04 Apr 2016 1256 ------- ------- ------- ------- -- referal consult /profil e renewal TERELL AVELAR 04/04 [facility] [employer]([facility] [place] [facility] [employer] OUTPATIENT [id number] [facility] JUANITA SANCHES 04/04 Released w/o Limitations [facility] [employer] [facility] [employer]) OUTPATIENT [id number] F/U ABHILASH ARREDONDO 04/06 Released w/o Limitations [facility], [employer]Cons [place] Cardiol [place]) [facility] [employer] OUTPATIENT [id number] PSG RESULTS JUANITA SANCHES 05/09 Released w/o Limitations [facility] [employer] [facility], [employer]) [place] [id number] FOLLOW UP ABHILASH TYSON 05/09 Released w/o Limitations [facility], [employer] [facility] [employer]) [place] [id number] Kvng, move forward with lt ankle surgery ,cardio logist cleared STEPHANIE COATES 05/20 Released w/o Limitations [facility], [employer] [facility] [employer] [id number] FOLLOW UP ABHILASH TYSON 05/23 Released w/o Limitations [facility], [employer] [facility], [place](Gastro enterolog y) TELE CONSULT [id number] Notes Entered by: LITZY HICKEY 23 May 2016 1252 ------- ------- ------- ------- -- resched APOLINAR Alexander 05/23 Advice Assessment [facility], [employer] [place] [facility], [facility] [place]([facility] S01A Strike) TELE CONSULT [id number] Notes Entered by: RUDDY CALI 25 May 2016 1619 ------- ------- ------- ------- -- FRANCISCO /MED REFILL BRYAN VIRAMONTES 05/25 Other Not Elsewhere Classified [facility], [employer] [facility], [place]([facility] S01A [facility]) TELE CONSULT [id number] Notes Entered by: VASILE CORTEZ 31 May 2016 1201 ------- ------- ------- ------- -- VALENTINO/ F/U FOR LEFT ANKLE PAIN/SC OFILE RENEWAL BRYAN VIRAMONTES 05/31 Other Not Elsewhere Classified [facility] [employer] [facility], [facility] [place]([facility]) OUTPATIENT [id number] ALPHA STIM JUANITA SANCHES 05/31 Released w/o Limitations [facility] [employer] [facility], [place](Chirop ractic) OUTPATIENT [id number] FOLLOW UP ABHILASH TYSON 06/08 Released w/o Limitations [facility], [employer] [facility] [employer] [id number] f/u for sleep study TERELL AVELAR 06/13 Released w/o Limitations [facility], [employer] [facility] [employer]) [place] [id number] surg [id number] -l ankle BALOG, STEPHANIE MALDONADO 06/27 Released w/o Limitations [facility], [employer] [facility] [employer]) [place] [id number] RAISA Simmons 06/27 Released w/o Limitations [facility], [employer] [facility] [employer] [place]) [place] [id number] xq - postop - surg [id number] - l ankle BALOG, STEPHANIE MALDONADO 07/15 Released w/o Limitations [facility], [employer] [facility] [employer] [place] Physical [place]) OUTPATIENT [id number] MALIK ISAACS 08/01 Released w/o Limitations [facility] [employer] Physica l Therapy ) [facility] [employer] TELE CONSULT [id number] Notes Entered by: RADHA CHERRY 02 Aug 2016 1129 ------- ------- ------- ------- -- VALENTINO/ MEDICAT ION REFILL/ SEE NOTES BRYAN VIRAMONTES 08/02 Other Not Elsewhere Classified [facility] [employer] [facility] [employer] [id number] sleep f/u JUANITA SANCHES 08/08 Released w/o Limitations [facility] [employer] [facility] [employer] [id number] fu lt ankle dos 6 STEPHANIE COATES 08/12 Released w/o Limitations [facility], [employer] [facility] [employer] [id number] actigra phy p/u BINTA HASTINGS W 08/15 Released w/o Limitations [facility] [employer] [facility] [employer] [id number] accupun cture per JUANITA Rowley 08/16 Released w/o Limitations [facility] [employer] [facility] [employer] Physical Therapy[place] OUTPATIENT [id number] f/u L ankle ISAACS, MALIK L 08/16 Released w/o Limitations [facility], [employer] Physica l Therapy ) [facility] [employer] Physical [place] OUTPATIENT [id number] SIMON Alicea 08/22 Released w/o Limitations [facility] [employer] Physica l Therapy ) [facility] [employer] [id number] annual KATHE RUBI 08/22 Released w/o Limitations [facility], [employer] [facility] [employer] [id number] accupun cture per JUANITA Rowley 08/30 Released w/o Limitations [facility] [employer] [facility] [employer] Physical [place] OUTPATIENT [id number] ALYCIASIMON BARAHONA Bhargav 09/01 Released w/o Limitations [facility] [employer] Physica l Therapy ) [facility] [employer] [place] OUTPATIENT [id number] EUNICE COLMENARES 09/06 Released w/o Limitations [facility] [employer] Physica l Therapy ) [facility] [employer] [place] OUTPATIENT [id number] actigra phy f/u JUANITA SANCHES 09/12 Released w/o Limitations [facility] [employer] [facility] [employer] [place] Physical [place] OUTPATIENT [id number] f/u (split per Eren n) MALIK ISAACS 09/14 Released w/o Limitations [facility] [employer] Physica l Therapy ) [facility] [employer] [place] OUTPATIENT [id number] EUNICE COLMENARES 09/19 Released w/o Limitations [facility] [employer] Phys[facility] l Therapy ) [facility] [employer] Physical [place] OUTPATIENT [id number] EUNICE COLMENARES 09/21 Released w/o Limitations [facility] [employer] Physica l Therapy ) [facility] [employer] [id number] f/u left ankle STEPHANIE COATES 09/21 Released w/o Limitations [facility], [employer] [facility] [employer] [id number] f/u TERELL AVELAR 09/26 Released w/o Limitations [facility], [employer] [facility] [employer] [place] TELE CONSULT [id number] Notes Entered by: ANDREA AVALOS 27 Sep 2016 1449 ------- ------- ------- ------- -- MALIK Pacheco 09/27 [facility] [employer] [facility] [facility] [employer] [place] Physical [place] OUTPATIENT [id number] exercis e pt called and booked on 16 SIMON DALY 09/29 Released w/o Limitations [facility] [employer] Physica l Therapy ) [facility] [employer] [place] Physical [place] OUTPATIENT [id number] JOELLEN MURILLO 10/03 Released w/o Limitations [facility] [employer] Physica l Therapy ) [facility] [employer] [place] OUTPATIENT [id number] sleep med f/u JUANITA SANCHES 10/03 Released w/o Limitations [facility] [employer] [facility] [employer] [place] [id number] f/u MALIK ISAACS 10/05 Released w/o Limitations [facility], [employer] [facility] [facility] [employer] [place] Physical [place] OUTPATIENT [id number] BAKARI REEVES 10/19 Released w/o Limitations [facility], [employer] Physica l Therapy ) [facility] [employer] [place] Physical [place] OUTPATIENT [id number] NATY LUNA 10/21 Released w/o Limitations [facility] [employer] Phys[facility] l Therapy ) [facility] [employer] [place] OUTPATIENT [id number] JOELLEN MURILLO 10/25 Released w/o Limitations [facility], [employer] Phys[facility] Therapy ) [facility] [employer] [place] OUTPATIENT [id number] EUNICE COLMENARES 11/01 Released w/o Limitations [facility], [employer] Physica l Therapy ) [facility] [employer] Physical [place] OUTPATIENT [id number] NATY LUNA 11/02 Released w/o Limitations [facility], [employer] Phys[facility] Therapy ) [facility], [employer] [id number] Notes Entered by: JAELYN HUNG 02 Nov 2016 1406 ------- ------- ------- ------- -- MEDICAT ION ISSUES JOSEP MAYA 11/02 [facility], [employer] [facility] [employer] [place] [facility] [id number] f/u left ankle booked w/pt in clinic on 16 MALIK ISAACS 11/03 Released w/o Limitations [facility], [employer] [facility] [facility] [employer] Physical [place] OUTPATIENT [id number] demo pt told [place] booked w/pt in clinic on 17 BAKARI REEVES 11/11 Released w/o Limitations [facility] [employer] Phys[facility] Therapy ) [facility] [employer] Physical [place] OUTPATIENT [id number] BAKARI REEVES 11/17 Released w/o Limitations [facility] [employer] Phys[facility] l Therapy ) [facility] [employer] Physical [place] OUTPATIENT [id number] BAKARI REEVES 11/18 Released w/o Limitations [facility] [employer] Physica l Therapy ) [facility] [employer] [place] OUTPATIENT [id number] sleep med f/u (shirley from Oct) JUANITA SANCHES 11/21 Released w/o Limitations [facility], [employer] [facility] [employer] [place] [facility] [id number] f/u left ankle booked w/pt in clinic on MALIK ISAACS 11/24 Released w/o Limitations [facility], [employer] [facility] [employer] [place] Physical [place] OUTPATIENT [id number] BAKARI REEVES Precious 12/07 Released w/o Limitations [facility] [employer] Phys[facility] Therapy ) [facility] [employer] [place] [place] OUTPATIENT [id number] JOELLEN Howe 12/09 Released w/o Limitations [facility] [employer] Phys[facility] Therapy ) [facility] [employer] TELE CONSULT [id number] Notes Entered by: ANDREA AVALOS 09 Dec 2016 0947 ------- ------- ------- ------- -- PROFILE MALIK ISAACS 12/09 [facility] [employer] [facility] [employer] [place] Physical [place] OUTPATIENT [id number] DOMINGUEZ ENGEL 12/13 Released w/o Limitations [facility], [employer] Physica l Therapy ) [facility], [place]([facility] Physical Therapy) OUTPATIENT [id number] LEANDROKIANNAKassandra Lang 12/19 Released w/o Limitations [facility] [employer] Phys[facility] l Therapy ) [facility], [place]([facility] Physical Therapy) OUTPATIENT [id number] LEANDRO BAKARI A 12/21 Released w/o Limitations [facility] [employer] Physica l Therapy ) [facility], [place]([facility]) OUTPATIENT [id number] f/u left ankle pt called and booked on 17 MALIK ISAACS 12/22 Released w/o Limitations [facility] [employer] [place] [facility] [facility], [place](Consul tant/Card iology) OUTPATIENT [id number] F/U ABHILASH ARREDONDO 12/26 Released w/o Limitations [facility], [employer] [facility], [place](Neurol ogy) TELE CONSULT [id number] Notes Entered by: JAELYN HUNG 26 Dec 2016 1553 ------- ------- ------- ------- -- JOSEP GARCIA 12/26 [facility] [employer]) [facility] [place]([facility] Physical Therapy) OUTPATIENT [id number] exercis e no demo per slip booked w/pt in clinic on BAKARI REEVES 12/28 Released w/o Limitations [facility] [employer] [place] Physica l Therapy ) [facility], [place]([facility] Physical Therapy) OUTPATIENT [id number] exercis e no demo per slip booked w/pt in clinic on BAKARI REEVES 12/30 Released w/o Limitations [facility] [employer] Physica l Therapy ) [facility] [employer] [place] Physical [place] OUTPATIENT [id number] BAKARI REEVES 01/03 Released w/o Limitations [facility] [employer] Physica l Therapy ) [facility] [employer] [place] [id number] f/u for sleep hygene. YOVANNY RODRIGUEZ 01/05 Released w/o Limitations [facility], [employer] [facility] [employer] [place]) [place] [id number] Event monitor ABHILASH ARREDONDO P. 01/09 Released w/o Limitations [facility], [employer] [facility] [employer] [place]) [place] [id number] echo ABHILASH ARREDONDO P. 01/18 Released w/o Limitations [facility], [employer] [facility] [employer] [place] [facility] [id number] f/u left ankle booked w/pt in clinic on MALIK ISAACS 01/19 Released w/o Limitations [facility], [employer] [place] [facility] [facility] [employer] [place]) [place] [id number] f/u to event monitor and echo ABHILASH ARREDONDO P. 01/23 Released w/o Limitations [facility], [employer] [facility] [employer] TELE CONSULT [id number] Notes Entered by: CHYNA RADHA HERNDONCIERA 25 Jan 2017 1448 ------- ------- ------- ------- -- JENNIFER/ PROFILE UPDATE/ SEE NOTES YOVANNY RODRIGUEZ 01/25 [facility] [employer]) [facility] [place] [id number] [facility]OMN[facility] (JOHN) [place] F/U (PREV PT OF MYRON ) BINAT HASTINGS 02/27 Released w/o Limitations [facility], [employer] [facility] [place] [id number] f/u appt JOSEP MAYA 02/27 Released w/o Limitations [facility], [employer] [facility], [place], [place](Consul tant/Card iology) OUTPATIENT [id number] STRESS TEST/Co owen ignacioi ciency of aortic valve ABHILASH ARREDONDO 02/28 Released w/o Limitations [facility], [employer] [facility] [place] [facility] [id number] f/u left ankle booked w/pt via phone on MALIK ISAACS 03/01 Released w/o Limitations [facility] [employer] [place] [facility] [facility] [place]) [place] [id number] f/u appt JOSEP MAYA 05/16 Released w/o Limitations [facility], [employer] [facility] [place] TELE CONSULT [id number] Notes Entered by: CATRACHITO CARMONA PELON 13 Jun 2017 1128 ------- ------- ------- ------- -- Profile MALDONADO MAC 06/13 [facility] [employer] [facility] [employer], [place](Orthop edics) OUTPATIENT [id number] saw balog; left ankle/f oot; dos [id number] CHERRI CALVILLO 06/14 Released with Work/Duty Limitations [facility], [employer] [facility] [employer] [place]) [place] [id number] f/u left ankle CHERRI CALVILLO 07/11 Released with Work/Duty Limitations [facility] [employer] [place] [facility] [employer] [place]) [place] [id number] elbow pain CRUTCHFIEL D, FABIO ROGELIO 07/28 Released w/o Limitations [facility], [employer] [facility] [employer] [place]) [place] [id number] f/u appt. JOSEP MAYA 08/01 Released w/o Limitations [facility], [employer] [place] [facility] [employer] [place] TELE CONSULT [id number] CRUTCHFIEL D, FABIO ROGELIO 08/02 [facility] [employer] [facility] [employer], [place](MEB Providers ) OUTPATIENT [id number] LAB JONES CURRIE 08/04 Released with Work/Duty Limitations [facility] [employer] [facility] [employer] [place]) [place] [id number] meb/eulalia humberto GUYTOVA, KASSY 08/16 Released w/o Limitations [facility] [employer] [place] [facility] [place]([facility]) OUTPATIENT [id number] f/u right elbow MALDONADO MAC Adria 08/31 Released w/o Limitations [facility] [employer] [facility] [employer] [place]([employer]op edic [employer]liance ) OUTPATIENT [id number] Notes Entered by: BALTA GARCIA 31 Aug 2017 0954 ------- ------- ------- ------- -- ELBOW MENDOZA, TEVIN L 08/31 Released w/o Limitations [facility] [employer] [facility], [facility] [place](LAB Providers ) OUTPATIENT [id number] dictati on JONES VOGT 09/05 Released with Work/Duty Limitations [facility], [employer] [facility] [place](Neurol ogy) TELE CONSULT [id number] Notes Entered by: JAMAR ELDER 05 Sep 2017 1421 ------- ------- ------- ------- -- Request For JOSEP Leyva 09/05 [facility] [employer] [facility] [place]) TELE CONSULT [id number] Notes Entered by: MALLORIE BRITTON 18 Sep 2017 1444 ------- ------- ------- ------- -- wants notes JOSEP Sanchez 09/18 [facility] [employer] [facility] [employer] [place] [id number] R KELLEE DAVIDSON/VALDEMAR GARCIA 09/22 Released w/o Limitations [facility] [employer] [facility] [employer] [place]) [place] [id number] Encount er for screeni ng for other disorde r ADILENE SHEN 10/19 Released with Work/Duty Limitations [facility] [employer] [facility] [employer] [place]) [place] [id number] ARABELLA Concepcion 10/20 Released w/o Limitations [facility], [employer] [facility] [employer] [place]) [place] [id number] ARABELLA Concepcion 10/23 Released w/o Limitations [facility], [employer] [facility] [employer] [place]) [place] [id number] ionto patches please for 8 oct ARABELLA DEL ANGEL 10/25 Released w/o Limitations [facility], [employer] [place] [facility] [employer] [place]) [place] [id number] ARABELLA Concepcion 11/03 Released w/o Limitations [facility], [employer] [facility] [employer] [place]) [place] [id number] TERESITA Ramsey 11/06 Released w/o Limitations [facility], [employer] [facility] [employer] [place]) [place] [id number] davidson DEL ANGEL ARABELLA Precious 11/08 Released w/o Limitations [facility], [employer] [facility] [employer] [place]) [place] [id number] trt RAISA GUADALUPE 11/15 Released w/o Limitations [facility], [employer] [facility] [employer] [place] [id number] mateo-BLANCO Kang 11/20 Released with Work/Duty Limitations [facility] [employer] [facility] [employer] ) OUTPATIENT [id number] Notes Entered by: NEAL MENDES 20 Nov 2017 1007 ------- ------- ------- ------- -- TEVIN BROOKS 11/20 Released w/o Limitations [facility] [employer] [facility] [employer] [id number] trt ELAINA DREW 11/21 Released w/o Limitations [facility], [employer] [facility] [employer] [place] [id number] trt TERESITA HULL 11/23 Released w/o Limitations [facility] [employer] [facility] [employer] [place] [id number] trt ELAINA DREW 11/29 Released w/o Limitations [facility], [employer] [facility] [employer] [place]) [place] [id number] re-ADILENE [place] 12/07 Released with Work/Duty Limitations [facility] [employer] [facility] [employer] OUTPATIENT [id number] trt RAISA OJEDA 12/11 Released w/o Limitations [facility], [employer] [facility] [employer] [place]) OUTPATIENT [id number] trt ELAINA DREW 12/13 Released w/o Limitations [facility], [employer] ) [facility], [employer]) OUTPATIENT [id number] trt RAISA OJEDA 12/25 Released w/o Limitations [facility], [employer] ) [facility] [employer]) OUTPATIENT [id number] trt TERESITA HULL 12/27 Released w/o Limitations [facility], [employer] ) [facility] [employer]) OUTPATIENT [id number] trt RAISA GUADALUPE 01/01 Released w/o Limitations [facility], [employer] ) [facility] [employer]) OUTPATIENT [id number] trt RAISA OJEDA 01/03 Released w/o Limitations [facility], [employer] ) [facility], [employer]) OUTPATIENT [id number] mateoADILENE [place] 01/09 Released w/o Limitations [facility], [employer], [place] ) [facility]le[facility]io [facility], [place], [place](Occup[place]) OUTPATIENT [id number] re-meli IRWINJANE LYChase Santiago 02/12 Released w/o Limitations [facility], [facility], [place](Occ[place]ationa l Therapy ) [facility] O/P EST MOD 30 MIN [id number] Diagnos is: ICD-10- CM G43.109 Migrain e with aura, not intract able, w/o status migrain osus DEVENSALIMA B 02/19 [facility] DIV[facility] OFFICE O/P EST MOD 30 MIN [id number] [phone] Diagnos is: ICD-10- CM G43.711 Chronic migrain e w/o aura, intract able, w status migrain osus PERNELL URIBE 04/12 [facility] QFLP OL DIG ASSMT&MGMT 5-10 [id number] Diagnos is: ICD-10- CM G43.109 Migrain e with aura, not intract able, w/o status migrain osus JACEY,Precious NNA P 04/15 [facility] OL DIG ASSMT&MGMT 5-10 [id number] Diagnos is: ICD-10- CM G43.109 Migrain e with aura, not intract able, w/o status migrain osus JACEY,A NNA P 04/15 [facility] Outpatient Encounter [id number] 04/17 [facility] Outpatient Encounter [id number] 05/01 [facility] Outpatient Encounter [id number] 05/02 [facility] Outpatient Encounter [id number] 02/03 [facility] Outpatient Encounter [id number] IRASEMA FOWLER R 02/04 [facility] Procedures Combined list of: 1) Procedures from Department of [facility] facilities going back up to thelast 18 months, not all [place] non-surgical procedures are included; 2) All procedures from the Department of [facility] facilities. Procedure Procedure Type Code Date Perfomer Comments Sourc e No data available for this section [facility] PREPARATION OF REPORT OF PATIENT'S PSYCHIATRIC STATUS, HISTORY, TREATMENT, OR PROGRESS (OTHER THAN FOR LEGAL OR CONSULTATIVE PURPOSES) FOR OTHER INDIVIDUALS, AGENCIES, OR INSURANCE CARRIERS 03/05 DoD VIS FUNCT SCREEN,AUTOMAT/ELIOT I-AUTOMAT BILAT QUANT DETERM VISUAL ACUITY,OCULAR ALIGN,COLOR VISION,PSEUDOISOCH ROMAT PLATES,& FIELD VIS (MAY INC ALL/SOME SCRN DETERM FOR CONTRAST SENSITIV,VIS UND GLARE) 02/20 [facility]D TETANUS, DIPHTHERIA TOXOIDS AND ACELLULAR PERTUSSIS VACCINE (TDAP), WHEN ADMINISTERED TO INDIVIDUALS 7 YEARS OR OLDER, FOR INTRAMUSCULAR USE 02/20 [facility] ANALYSIS OF CLINICAL DATA STORED IN COMPUTERS (EG, ECGS, BLOOD PRESSURES, HEMATOLOGIC DATA) 02/18 DoD SKIN TEST; TUBERCULOSIS, INTRADERMAL 02/18 DoD SKIN TEST; TUBERCULOSIS, INTRADERMAL 02/18 DoD ANTHRAX VACCINE, FOR SUBCUTANEOUS OR INTRAMUSCULAR USE 09/30 DoD VISUAL FIELD EXAM,UNILAT/BI,INT ERP&REP;EXT EXM(EG,GOLDMANN VIS FLD,AT LEAST 3 ISOP PLOT&STAT DET W/IN GERARD 30DEG/QUANT,AUTO THRSH JENNIFER,OCT G-1,32/42,HUMP VIS FLD ANAL FULL THRSH 30-2,24-2, OR 30/60-2) 06/13 [facility] AUDIOMETRIC TESTING OF GROUPS 09/05 [facility] ANTHRAX VACCINE, FOR SUBCUTANEOUS OR INTRAMUSCULAR USE 09/22 [facility] PATIENT EDUCATION, NOT OTHERWISE CLASSIFIED, NON-PHYSICIAN PROVIDER, GROUP, PER SESSION 07/29 [facility] INFLUENZA VIRUS VACCINE, TRIVALENT, LIVE (LAIV3), FOR INTRANASAL USE 09/30 [facility] TYPHOID VACCINE, ACETONE-KILLED, DRIED (AKD), FOR SUBCUTANEOUS USE (U.S. ) 08/17 [facility] AUDIOMETRIC TESTING OF GROUPS 07/05 [facility] IMMUNIZATION ADMINISTRATION (INCLUDES PERCUTANEOUS, INTRADERMAL, SUBCUTANEOUS, OR INTRAMUSCULAR INJECTIONS); EACH ADDITIONAL VACCINE (SINGLE OR COMBINATION VACCINE/TOXOID) 05/04 [facility] PRESSURIZED/NONPRE SS INHAL TREAT FOR AC AIRWAY OBSTRUCT,THERAP PURPOSE &/FOR DIAG PURP SUCH SPUTUM INDUCTION W AN AEROSOL GEN,NEBULIZER,METE R DOSE INHALER/INTERMIT POSIT PRESS BREATHING (IPPB) DEV 04/30 [facility] ECHOCARDIOGRAPHY,T CARLIE,REAL- TIME W IMAGE DOCUMENTATION (2D),INCLUDES M-MODE RECORDING,WHEN PERFORMED,COMPLETE ,WITH SPECTRAL DOPPLER ECHOCARDIOGRAPHY,A ND W COLOR FLOW DOPPLER ECHOCARDIOGRAPHY 05/13 [facility] ELECTROENCEPHALOGR AM (EEG); INCLUDING RECORDING AWAKE AND ASLEEP 05/12 [facility] ELECTROCARDIOGRAM, ROUTINE ECG WITH AT LEAST 12 LEADS; TRACING ONLY, WITHOUT INTERPRETATION AND REPORT 05/07 [facility] PREPARED FOODS SUPERVISOR ELECTROCARDIOGRAPH IC RECORDING UP TO 48 HOUR,CONT RHYTHM RECORDING & STORAGE;INCLUD RECORDING,SCANNING ANAL W REPORT,REVIEW &INTERPRETATION,A PHYSICIAN/OTHER QUALIFIED HEALTH TILE INSPECTOR 04/30 [facility] CARDIOVASCULAR STRESS TEST USING MAXIMAL OR SUBMAXIMAL TREADMILL OR BICYCLE EXERCISE,CONTINUOU S ELECTROCARDIOGRAPH IC MONITORING,AND/OR PHARMACOLOGICAL STRESS;W SUPERVISION,INTERP RETATION AND REPORT 04/16 [facility] EXT PAT &,WHEN PERF,AUTO ACT ECG RHY DERIVED EVENT RECORD W SYMPT-RELAT MEMORY LOOP W REMOTE DOWNLOAD CAPABILITY UP TO 30 DAYS,24-HOUR ATTENDED MONITOR; RECORDING (INCL CONNECT, RECORD, & DISCONNECT) 04/16 [facility] ELECTROENCEPHALOGR AM (EEG); INCLUDING RECORDING AWAKE AND ASLEEP 04/10 [facility] RE-EVALUATION OF OCCUPATIONAL THERAPY ESTABLISHED PLAN OF CARE,REQ:ASSESS CHANGES IN PAT FUNCT/MED STATUS W REVISED PLAN OF CARE;TYPICALLY, 30 MINUTES ARE SPENT [id number] WITH THE PATIENT &/FAMILY 02/12 [facility]D RE-EVALUATION OF OCCUPATIONAL THERAPY ESTABLISHED PLAN OF CARE,REQ:ASSESS CHANGES IN PAT FUNCT/MED STATUS W REVISED PLAN OF CARE;TYPICALLY, 30 MINUTES ARE SPENT [id number] WITH THE PATIENT &/FAMILY 01/09 DoD APPLICATION OF A MODALITY TO 1 OR MORE AREAS; HOT OR COLD PACKS 01/03 DoD APPLICATION OF A MODALITY TO 1 OR MORE AREAS; HOT OR COLD PACKS 01/01 DoD APPLICATION OF A MODALITY TO 1 OR MORE AREAS; ULTRASOUND, EACH 15 MINUTES 12/27 DoD THERAPEUTIC PROCEDURE, 1 OR MORE AREAS, EACH 15 MINUTES; MASSAGE, INCLUDING EFFLEURAGE, PETRISSAGE AND/OR TAPOTEMENT (STROKING, COMPRESSION, PERCUSSION) 12/25 DoD APPLICATION OF A MODALITY TO 1 OR MORE AREAS; HOT OR COLD PACKS 12/13 DoD APPLICATION OF A MODALITY TO 1 OR MORE AREAS; HOT OR COLD PACKS 12/11 [facility] RE-EVALUATION OF OCCUPATIONAL THERAPY ESTABLISHED PLAN OF CARE,REQ:ASSESS CHANGES IN PAT FUNCT/MED STATUS W REVISED PLAN OF CARE;TYPICALLY, 30 MINUTES ARE SPENT [id number] WITH THE PATIENT &/FAMILY 12/07 [facility] APPLICATION OF A MODALITY TO 1 OR MORE AREAS; HOT OR COLD PACKS 11/29 DoD APPLICATION OF A MODALITY TO 1 OR MORE AREAS; HOT OR COLD PACKS 11/23 DoD APPLICATION OF A MODALITY TO 1 OR MORE AREAS; HOT OR COLD PACKS 11/21 DoD WRIST HAND ORTHOSIS, WRIST EXTENSION CONTROL COCK-UP, NON MOLDED, PREFABRICATED, [id number] 11/20 DoD THERAPEUTIC PROCEDURE, 1 OR MORE AREAS, EACH 15 MINUTES; MASSAGE, INCLUDING EFFLEURAGE, PETRISSAGE AND/OR TAPOTEMENT (STROKING, COMPRESSION, PERCUSSION) 11/20 DoD APPLICATION OF A MODALITY TO 1 OR MORE AREAS; IONTOPHORESIS, EACH 15 MINUTES 11/15 DoD APPLICATION OF A MODALITY TO 1 OR MORE AREAS; IONTOPHORESIS, EACH 15 MINUTES 11/08 DoD APPLICATION OF A MODALITY TO 1 OR MORE AREAS; IONTOPHORESIS, EACH 15 MINUTES 11/06 DoD APPLICATION OF A MODALITY TO 1 OR MORE AREAS; IONTOPHORESIS, EACH 15 MINUTES 11/03 [facility] APPLICATION OF A MODALITY TO 1 OR MORE AREAS; IONTOPHORESIS, EACH 15 MINUTES 10/25 DoD APPLICATION OF A MODALITY TO 1 OR MORE AREAS; IONTOPHORESIS, EACH 15 MINUTES 10/23 DoD APPLICATION OF A MODALITY TO 1 OR MORE AREAS; IONTOPHORESIS, EACH 15 MINUTES 10/20 [facility] UPPER LIMB ORTHOSIS, NOT OTHERWISE SPECIFIED 10/19 [facility] UPPER LIMB ORTHOSIS, NOT OTHERWISE SPECIFIED 08/31 [facility] PURE TONE AUDIOMETRY (THRESHOLD), AUTOMATED; AIR ONLY 08/16 [facility] THERAPEUTIC PROCEDURE, 1 OR MORE AREAS, EACH 15 MINUTES; THERAPEUTIC EXERCISES TO DEVELOP STRENGTH AND ENDURANCE, RANGE OF MOTION AND FLEXIBILITY 03/01 [facility] CARDIOVASCULAR STRESS TEST USING MAXIMAL OR SUBMAXIMAL TREADMILL OR BICYCLE EXERCISE,CONTINUOU S ELECTROCARDIOGRAPH IC MONITORING,AND/OR PHARMACOLOGICAL STRESS;W SUPERVISION,INTERP RETATION AND REPORT 02/28 [facility] MANUAL THERAPY TECHNIQUES (EG, MOBILIZATION/ MANIPULATION, MANUAL LYMPHATIC DRAINAGE, MANUAL TRACTION), 1 OR MORE REGIONS, EACH 15 MINUTES 01/19 [facility] ECHOCARDIOGRAPHY,T RANSTHORACIC,REAL- TIME W IMAGE DOCUMENTATION (2D),INCLUDES M-MODE RECORDING,WHEN PERFORMED,COMPLETE ,WITH SPECTRAL DOPPLER ECHOCARDIOGRAPHY,A ND W COLOR FLOW DOPPLER ECHOCARDIOGRAPHY 01/18 [facility] PSYCHOTHERAPY, 30 MINUTES WITH PATIENT 01/16 [facility] EXT PAT & WHEN PERF,AUTO ACT ECG RHY ALLYSON EVNT REC,SYMPT-RELAT MEM LOOP,REM DOWNLOAD CAPABIL UP TO 30 DAYS,24-HOUR ATTEN MON;INC TRANSMISSION,REVIE W & INTERPRET,A PHYS/OTH QUALIFIED HEALTH CARE PROFES 01/09 [facility] THERAPEUTIC PROCEDURE(S), GROUP (2 OR MORE INDIVIDUALS) 01/03 [facility] INDIVIDUAL PSYCHOPHYSIOLOGICA L THERAPY INCORP BIOFEED TRAINING,ANY MODALITY ([id number] W THE PATIENT),W PSYCHOTHERAPY (EG,INSIGHT ORIENT,BEHAVIOR MODIFYING/SUPPORTI VE PSYCHOTHER); 30 MINUTES 01/02 [facility] THERAPEUTIC PROCEDURE(S), GROUP (2 OR MORE INDIVIDUALS) 12/30 [facility] THERAPEUTIC PROCEDURE(S), GROUP (2 OR MORE INDIVIDUALS) 12/28 [facility] INDIVIDUAL PSYCHOPHYSIOLOGICA L THERAPY INCORP BIOFEED TRAINING,ANY MODALITY ([id number] W THE PATIENT),W PSYCHOTHERAPY (EG,INSIGHT ORIENT,BEHAVIOR MODIFYING/SUPPORTI VE PSYCHOTHER); 30 MINUTES 12/26 [facility] PHYSICAL THERAPY RE-EVALUATION 12/22 DoD THERAPEUTIC PROCEDURE(S), GROUP (2 OR MORE INDIVIDUALS) 12/21 [facility] INDIVIDUAL PSYCHOPHYSIOLOGICA L THERAPY INCORP BIOFEED TRAINING,ANY MODALITY ([id number] W THE PATIENT),W PSYCHOTHERAPY (EG,INSIGHT ORIENT,BEHAVIOR MODIFYING/SUPPORTI VE PSYCHOTHER); 30 MINUTES 12/19 DoD THERAPEUTIC PROCEDURE, 1 OR MORE AREAS, EACH 15 MINUTES; THERAPEUTIC EXERCISES TO DEVELOP STRENGTH AND ENDURANCE, RANGE OF MOTION AND FLEXIBILITY 12/19 DoD THERAPEUTIC PROCEDURE(S), GROUP (2 OR MORE INDIVIDUALS) 12/12 [facility]D THERAPEUTIC PROCEDURE(S), GROUP (2 OR MORE INDIVIDUALS) 12/09 DoD THERAPEUTIC PROCEDURE(S), GROUP (2 OR MORE INDIVIDUALS) 12/07 DoD PSYC TSTNG(PSYCODIAG ASSESS,EMOTITY,INT ELLECTUAL ABILITIES,PERSONAL ITY&PSYCOPATHOLOGY ,EG,MMPI&WAIS),W QUALIFIED HEALTH CARE PROFSIONAL INTERP&RPT,ADMINIS TERED MACHINE CLOTH EXAMINER,/HR,HELENE H TME,FCE-2-FCE 12/06 [facility] MANUAL THERAPY TECHNIQUES (EG, MOBILIZATION/ MANIPULATION, MANUAL LYMPHATIC DRAINAGE, MANUAL TRACTION), 1 OR MORE REGIONS, EACH 15 MINUTES 11/24 [facility]D THERAPEUTIC PROCEDURE,1 OR MORE AREAS,EACH 15 MINUTES;NEUROMUSCU LAR REEDUCATION OF MOVEMENT,BALANCE,C OORDINATION,KINEST HETIC SENSE,POSTURE,AND/ OR PROPRIOCEPTION FOR SITTING AND/OR STANDING ACTIVITIES 11/18 DoD THERAPEUTIC PROCEDURE,1 OR MORE AREAS,EACH 15 MINUTES;NEUROMUSCU LAR REEDUCATION OF MOVEMENT,BALANCE,C OORDINATION,KINEST HETIC SENSE,POSTURE,AND/ OR PROPRIOCEPTION FOR SITTING AND/OR STANDING ACTIVITIES 11/17 DoD THERAPEUTIC PROCEDURE,1 OR MORE AREAS,EACH 15 MINUTES;NEUROMUSCU LAR REEDUCATION OF MOVEMENT,BALANCE,C OORDINATION,KINEST HETIC SENSE,POSTURE,AND/ OR PROPRIOCEPTION FOR SITTING AND/OR STANDING ACTIVITIES 11/11 [facility]D THERAPEUTIC PROCEDURE, 1 OR MORE AREAS, EACH 15 MINUTES; THERAPEUTIC EXERCISES TO DEVELOP STRENGTH AND ENDURANCE, RANGE OF MOTION AND FLEXIBILITY 11/03 DoD MANUAL THERAPY TECHNIQUES (EG, MOBILIZATION/ MANIPULATION, MANUAL LYMPHATIC DRAINAGE, MANUAL TRACTION), 1 OR MORE REGIONS, EACH 15 MINUTES 11/02 DoD THERAPEUTIC PROCEDURE(S), GROUP (2 OR MORE INDIVIDUALS) 11/01 [facility]D MANUAL THERAPY TECHNIQUES (EG, MOBILIZATION/ MANIPULATION, MANUAL LYMPHATIC DRAINAGE, MANUAL TRACTION), 1 OR MORE REGIONS, EACH 15 MINUTES 10/25 DoD MANUAL THERAPY TECHNIQUES (EG, MOBILIZATION/ MANIPULATION, MANUAL LYMPHATIC DRAINAGE, MANUAL TRACTION), 1 OR MORE REGIONS, EACH 15 MINUTES 10/21 DoD THERAPEUTIC PROCEDURE(S), GROUP (2 OR MORE INDIVIDUALS) 10/19 [facility]D MANUAL THERAPY TECHNIQUES (EG, MOBILIZATION/ MANIPULATION, MANUAL LYMPHATIC DRAINAGE, MANUAL TRACTION), 1 OR MORE REGIONS, EACH 15 MINUTES 10/05 DoD THERAPEUTIC PROCEDURE(S), GROUP (2 OR MORE INDIVIDUALS) 10/03 DoD THERAPEUTIC PROCEDURE(S), GROUP (2 OR MORE INDIVIDUALS) 09/29 [facility] POSTOPERATIVE FOLLOW-UP VISIT, NORMALLY INCLUDED IN THE SURGICAL PACKAGE, INDICATE THAT EVALUATION & MANAGEMENT SERVICE WAS PERFORMED DURING A POSTOPERATIVE PERIOD REASON RELATED ORIGINAL PROCEDURE 09/21 DoD THERAPEUTIC PROCEDURE(S), GROUP (2 OR MORE INDIVIDUALS) 09/21 DoD THERAPEUTIC PROCEDURE(S), GROUP (2 OR MORE INDIVIDUALS) 09/19 DoD THERAPEUTIC PROCEDURE, 1 OR MORE AREAS, EACH 15 MINUTES; THERAPEUTIC EXERCISES TO DEVELOP STRENGTH AND ENDURANCE, RANGE OF MOTION AND FLEXIBILITY 09/14 DoD THERAPEUTIC PROCEDURE(S), GROUP (2 OR MORE INDIVIDUALS) 09/06 DoD THERAPEUTIC PROCEDURE(S), GROUP (2 OR MORE INDIVIDUALS) 09/01 [facility] PURE TONE AUDIOMETRY (THRESHOLD), AUTOMATED; AIR ONLY 08/22 DoD THERAPEUTIC PROCEDURE, 1 OR MORE AREAS, EACH 15 MINUTES; THERAPEUTIC EXERCISES TO DEVELOP STRENGTH AND ENDURANCE, RANGE OF MOTION AND FLEXIBILITY 08/22 DoD THERAPEUTIC PROCEDURE,1 OR MORE AREAS,EACH 15 MINUTES;NEUROMUSCU LAR REEDUCATION OF MOVEMENT,BALANCE,C OORDINATION,KINEST HETIC SENSE,POSTURE,AND/ OR PROPRIOCEPTION FOR SITTING AND/OR STANDING ACTIVITIES 08/16 [facility] POSTOPERATIVE FOLLOW-UP VISIT, NORMALLY INCLUDED IN THE SURGICAL PACKAGE, INDICATE THAT EVALUATION & MANAGEMENT SERVICE WAS PERFORMED DURING A POSTOPERATIVE PERIOD REASON RELATED ORIGINAL PROCEDURE 08/12 DoD THERAPEUTIC PROCEDURE, 1 OR MORE AREAS, EACH 15 MINUTES; THERAPEUTIC EXERCISES TO DEVELOP STRENGTH AND ENDURANCE, RANGE OF MOTION AND FLEXIBILITY 08/01 [facility] POSTOPERATIVE FOLLOW-UP VISIT, NORMALLY INCLUDED IN THE SURGICAL PACKAGE, INDICATE THAT EVALUATION & MANAGEMENT SERVICE WAS PERFORMED DURING A POSTOPERATIVE PERIOD REASON RELATED ORIGINAL PROCEDURE 07/15 [facility] UNLISTED SPECIAL SERVICE, PROCEDURE OR REPORT 07/04 [facility] THERAPEUTIC PROCEDURE, 1 OR MORE AREAS, EACH 15 MINUTES; GAIT TRAINING (INCLUDES STAIR CLIMBING) 06/27 [facility] BRIEF EMOTIONAL/BEHAVIOR AL ASSESSMENT (EG, DEPRESSION INVENTORY, ATTENTION-DEFICIT/ HYPERACTIVITY DISORDER [ADHD] SCALE), WITH SCORING AND DOCUMENTATION, PER STANDARDIZED INSTRUMENT 06/13 [facility] CHIROPRACTIC MANIPULATIVE TREATMENT (CMT); SPINAL, 3-4 REGIONS 06/08 [facility] CHIROPRACTIC MANIPULATIVE TREATMENT (CMT); SPINAL, 1-2 REGIONS 05/23 [facility] APPLICATION OF A MODALITY TO 1 OR MORE AREAS; TRACTION, MECHANICAL 05/09 [facility] POLYSOMNOGRAPHY; AGE 6 YEARS OR OLDER, SLEEP STAGING WITH 4 OR MORE ADDITIONAL PARAMETERS OF SLEEP, ATTENDED BY A TECHNOLOGIST 03/23 [facility] ACUPUNCTURE, 1 OR MORE NEEDLES; WITHOUT ELECTRICAL STIMULATION, INITIAL 15 MINUTES OF PERSONAL ONE-ON-ONE CONTACT WITH THE PATIENT 03/18 [facility] CHIROPRACTIC MANIPULATIVE TREATMENT (CMT); SPINAL, 1-2 REGIONS 03/17 [facility] THERAPEUTIC PROCEDURE, 1 OR MORE AREAS, EACH 15 MINUTES; GAIT TRAINING (INCLUDES STAIR CLIMBING) 02/15 [facility] PHYSICAL THERAPY RE-EVALUATION 02/14 [facility] ECHOCARDIOGRAPHY,T ANTWANSTHORACIC,REAL- TIME W IMAGE DOCUMENTATION (2D),INCLUDES M-MODE RECORDING,WHEN PERFORMED,COMPLETE ,WITH SPECTRAL DOPPLER ECHOCARDIOGRAPHY,A ND W COLOR FLOW DOPPLER ECHOCARDIOGRAPHY 02/11 [facility] APPLICATION OF A MODALITY TO 1 OR MORE AREAS; VASOPNEUMATIC DEVICES 02/10 [facility] EXTERNAL ELECTROCARDIOGRAPH IC RECORDING UP TO 48 HOURS BY CONTINUOUS RHYTHM RECORDING AND STORAGE; REVIEW AND INTERPRETATION BY A PHYSICIAN OR OTHER QUALIFIED HEALTH TILE INSPECTOR 02/09 [facility] APPLICATION OF A MODALITY TO 1 OR MORE AREAS; VASOPNEUMATIC DEVICES 02/08 [facility] APPLICATION OF A MODALITY TO 1 OR MORE AREAS; VASOPNEUMATIC DEVICES 02/01 [facility] APPLICATION OF A MODALITY TO 1 OR MORE AREAS; VASOPNEUMATIC DEVICES 01/31 [facility] APPLICATION OF A MODALITY TO 1 OR MORE AREAS; VASOPNEUMATIC DEVICES 01/26 [facility] APPLICATION OF A MODALITY TO 1 OR MORE AREAS; VASOPNEUMATIC DEVICES 01/24 [facility] APPLICATION OF A MODALITY TO 1 OR MORE AREAS; VASOPNEUMATIC DEVICES 01/21 [facility] THERAPEUTIC PROCEDURE(S), GROUP (2 OR MORE INDIVIDUALS) 01/19 [facility] OSTEOPATHIC MANIPULATIVE TREATMENT (OMT); 1-2 BODY REGIONS INVOLVED 01/17 [facility] PSYCHIATRIC EVALUATION OF HOSPITAL RECORDS, OTHER PSYCHIATRIC REPORTS, PSYCHOMETRIC AND/OR PROJECTIVE TESTS, AND OTHER ACCUMULATED DATA FOR MEDICALDIAGNOSTIC PURPOSES 11/16 [facility] ELECTROENCEPHALOGR AM (EEG); INCLUDING RECORDING AWAKE AND DROWSY 07/22 [facility] CARDIOVASCULAR STRESS TEST USING MAXIMAL OR SUBMAXIMAL TREADMILL OR BICYCLE EXERCISE,CONTINUOU S ELECTROCARDIOGRAPH IC MONITORING,AND/OR PHARMACOLOGICAL STRESS;W SUPERVISION,INTERP RETATION AND REPORT 06/29 [facility] EXT PAT & WHEN PERF,AUTO ACT ECG RHY ALLYSON EVNT REC,SYMPT-RELAT MEM LOOP,REM DOWNLOAD CAPABILITY UP TO 30 DAYS,24-HOUR ATTENDED MON;REVIEW &INTERPRET,A PHYS/OTH QUALIFIED HEALTH TILE INSPECTOR 06/15 [facility] TRANSTHORACIC ECHOCARDIOGRAPHY FOR CONGENITAL CARDIAC ANOMALIES; COMPLETE 06/15 [facility] PREPARED FOODS SUPERVISOR ELECTROCARDIOGRAPH IC RECORDING UP TO 48 HOUR,CONT RHYTHM RECORDING & STORAGE;INCLUD RECORDING,SCANNING ANAL W REPORT,REVIEW &INTERPRETATION,A PHYSICIAN/OTHER QUALIFIED HEALTH TILE INSPECTOR 06/01 [facility] PURE TONE AUDIOMETRY (THRESHOLD), AUTOMATED; AIR ONLY 05/07 [facility] AUDIOMETRIC TESTING OF GROUPS 02/07 [facility] INFLUENZA VIRUS VACCINE, TRIVALENT (IIV3), SPLIT VIRUS, 0.5 ML DOSAGE, FOR INTRAMUSCULAR USE 01/24 [facility] ESOPHAGOGASTRODUOD ENOSCOPY, FLEXIBLE, TRANSORAL; WITH BIOPSY, SINGLE OR MULTIPLE 07/25 [facility] CARDIOVASCULAR STRESS TEST USING MAXIMAL OR SUBMAXIMAL TREADMILL OR BICYCLE EXERCISE,CONTINUOU S ELECTROCARDIOGRAPH IC MONITORING,AND/OR PHARMACOLOGICAL STRESS;W SUPERVISION,INTERP RETATION AND REPORT 07/03 [facility] 3D RENDERING W INTERPRET &REPORTING OF COMPUTED TOMOGR,MAG RES IMG,ULTRASND,OR OTH TOMOGR MODALITY W IMAG POSTPROCESS UNDER CONCURR SUPERVISION;NOT REQ IMAG POSTPROCESS ON AN INDEPENDEN WRKSTATION 06/26 [facility] AMBULANCE SERVICE, BASIC LIFE SUPPORT, NON-EMERGENCY TRANSPORT (BLS) 06/13 [facility] LARYNGOSCOPY, FLEXIBLE; DIAGNOSTIC 02/20 [facility] PURE TONE AUDIOMETRY (THRESHOLD); AIR ONLY 02/12 [facility] SCREENING TEST OF VISUAL ACUITY, QUANTITATIVE, BILATERAL 07/30 [facility] INJECTION, SUMATRIPTAN SUCCINATE, 6 MG (CODE MAY BE USED FOR MEDICARE WHEN DRUG ADMINISTERED UNDER THE DIRECT SUPERVISION OF A PHYSICIAN, NOT FOR USE WHEN DRUG IS SELF ADMINISTERED) 05/14 [facility] ELECTROCARDIOGRAM, ROUTINE ECG WITH AT LEAST 12 LEADS; TRACING ONLY, WITHOUT INTERPRETATION AND REPORT 04/24 [facility] ECHOCARDIOGRAPHY,Aidan SEXTON,REAL- TIME W IMAGE DOCUMENTATION (2D),INCLUDES M-MODE RECORDING,WHEN PERFORMED,COMPLETE ,WITH SPECTRAL DOPPLER ECHOCARDIOGRAPHY,A ND W COLOR FLOW DOPPLER ECHOCARDIOGRAPHY 01/29 [facility] ELECTROCARDIOGRAM, ROUTINE ECG WITH AT LEAST 12 LEADS; TRACING ONLY, WITHOUT INTERPRETATION AND REPORT 01/10 [facility] COLLECTION OF VENOUS BLOOD BY VENIPUNCTURE 01/02 [facility] Physical Therapy Neuromuscular Re-education Physical Therapy Neuromuscular Re-education 12974 11/18 BAKARI REEVES Physical Therapy: ___ Se ion Segments, 15 Minutes Each Physical Therapy: ___ Session Segments, 15 Minutes Each [id number] 11/18 BAKARI REEVES Physical Therapy: ___ Se ion Segments, 15 Minutes Each Physical Therapy: ___ Session Segments, 15 Minutes Each [id number] 11/17 BAKARI REEVES Physical Therapy Neuromuscular Re-education Physical Therapy Neuromuscular Re-education 02328 11/17 BAKARI REEVES Physical Therapy Neuromuscular Re-education Physical Therapy Neuromuscular Re-education 31897 11/11 BAKARI REEVES [facility] Physical Therapy: ___ Se ion Segments, 15 Minutes Each Physical Therapy: ___ Session Segments, 15 Minutes Each [id number] 11/11 BAKARI REEVES Physical Therapy: ___ Se ion Segments, 15 Minutes Each Physical Therapy: ___ Session Segments, 15 Minutes Each 18229 11/03 MALIK ISAACS [facility] Physical Medicine Physical Therapy Re-Evaluation Physical Medicine Physical Therapy Re-Evaluation 71412 11/03 MALIK ISAACS [facility] Physical Therapy Mobilization Joint Physical Therapy Mobilization Joint 25771 11/02 NATY LUNA [facility] Physical Therapy: ___ Se ion Segments, 15 Minutes Each Physical Therapy: ___ Session Segments, 15 Minutes Each 30583 11/02 NATY LUNA [facility] Physical Medicine - Group Physical Therapy Se ion Physical Medicine - Group Physical Therapy Session 90625 11/01 DARRIAN EUNICE Durant [facility] Physical Therapy Mobilization Joint Physical Therapy Mobilization Joint 03706 11/01 DARRIANEUNICE [facility] Physical Therapy Neuromuscular Re-education Physical Therapy Neuromuscular Re-education 51284 11/01 DARRIANEUNICE [facility] Physical Therapy: ___ Se ion Segments, 15 Minutes Each Physical Therapy: ___ Session Segments, 15 Minutes Each 58498 11/01 DARRIAN EUNICE Durant [facility] Physical Therapy Mobilization Joint Physical Therapy Mobilization Joint 28456 10/25 JOELLEN MURILLO [facility] Physical Medicine - Group Physical Therapy Se ion Physical Medicine - Group Physical Therapy Session 88953 10/25 JOELLEN MURILLO [facility] Physical Therapy Mobilization Joint Physical Therapy Mobilization Joint 86887 10/21 NATY LUNA [facility] Physical Therapy: ___ Se ion Segments, 15 Minutes Each Physical Therapy: ___ Session Segments, 15 Minutes Each 10945 10/21 NATY LUNA Physical Medicine - Group Physical Therapy Se ion Physical Medicine - Group Physical Therapy Session 21645 10/19 BAKARI REEVES [facility] Physical Therapy Neuromuscular Re-education Physical Therapy Neuromuscular Re-education 14534 10/19 BAKARI REEVES [facility] Physical Therapy: ___ Se ion Segments, 15 Minutes Each Physical Therapy: ___ Session Segments, 15 Minutes Each 94830 10/19 BAKARI REEVES Physical Therapy Mobilization Joint Physical Therapy Mobilization Joint 61235 10/05 MALIK ISAACS [facility] Physical Medicine Physical Therapy Re-Evaluation Physical Medicine Physical Therapy Re-Evaluation 59210 10/05 MALIK ISAACS [facility] Physical Medicine - Group Physical Therapy Se ion Physical Medicine - Group Physical Therapy Session 50218 10/03 JOELLEN MURILLO [facility] Physical Therapy: ___ Se ion Segments, 15 Minutes Each Physical Therapy: ___ Session Segments, 15 Minutes Each 06664 10/03 JOELLEN MURILLO [facility] Physical Therapy Neuromuscular Re-education Physical Therapy Neuromuscular Re-education 87674 10/03 JOELLEN MURILLO [facility] Physical Medicine - Group Physical Therapy Se ion Physical Medicine - Group Physical Therapy Session 88503 09/29 SIMON DALY [facility] Physical Therapy: ___ Se ion Segments, 15 Minutes Each Physical Therapy: ___ Session Segments, 15 Minutes Each 12845 09/29 SIMON DALY [facility] Physical Therapy Neuromuscular Re-education Physical Therapy Neuromuscular Re-education 98894 09/29 SIMON DALY [facility] Postoperative Visit, Without Charge Postoperative Visit, Without Charge 00081 09/21 STEPHANIE COATES [facility] Physical Medicine - Group Physical Therapy Se ion Physical Medicine - Group Physical Therapy Session 50670 09/21 EUNICE COLMENARES [facility] Physical Therapy: ___ Se ion Segments, 15 Minutes Each Physical Therapy: ___ Session Segments, 15 Minutes Each 76045 09/21 EUNICE COLMENARES [facility] Physical Therapy Neuromuscular Re-education Physical Therapy Neuromuscular Re-education 98162 09/21 EUNICE COLMENARES [facility] Physical Medicine - Group Physical Therapy Se ion Physical Medicine - Group Physical Therapy Session 77431 09/19 EUNICE COLMENARES [facility] Physical Therapy Neuromuscular Re-education Physical Therapy Neuromuscular Re-education 91627 09/19 EUNICE COLMENARES [facility] Physical Therapy: ___ Se ion Segments, 15 Minutes Each Physical Therapy: ___ Session Segments, 15 Minutes Each 13448 09/19 EUNICE COLMENARES [facility] Physical Medicine Physical Therapy Re-Evaluation Physical Medicine Physical Therapy Re-Evaluation 12578 09/14 MALIK ISAACS [facility] Physical Therapy: ___ Se ion Segments, 15 Minutes Each Physical Therapy: ___ Session Segments, 15 Minutes Each 78051 09/14 MALIK ISAACS [facility] Physical Therapy: ___ Se ion Segments, 15 Minutes Each Physical Therapy: ___ Session Segments, 15 Minutes Each 58528 09/06 EUNICE COLMENARES [facility] Physical Medicine - Group Physical Therapy Se ion Physical Medicine - Group Physical Therapy Session 22945 09/06 EUNICE COLMENARES [facility] Physical Therapy Neuromuscular Re-education Physical Therapy Neuromuscular Re-education 90586 09/06 EUNICE COLMENARES [facility] Physical Medicine - Group Physical Therapy Se ion Physical Medicine - Group Physical Therapy Session 26320 09/01 SIMON DALY [facility] Physical Therapy: ___ Se ion Segments, 15 Minutes Each Physical Therapy: ___ Session Segments, 15 Minutes Each 88464 09/01 SIMON DALY Physical Therapy Neuromuscular Re-education Physical Therapy Neuromuscular Re-education 22461 09/01 SIMON DALY Patient Counseling Medical Management Individual Patient Patient Counseling Medical Management Individual Patient 36851 08/30 JUANITA SANCHES Counseled on relaxation techniques and assistance in set up for 6 week Alpha Stim issue. [facility] Modalities Electrical Stimulation Modalities Electrical Stimulation 80958 08/30 JUANITA SANCHES Alpha Stim Treatment x 20 min. 5 min for set and breakdown [facility] Threshold Audiogram (Pure Tone) Automated Threshold Audiogram (Pure Tone) Automated [id number] 08/22 KATHE RUBI [facility] Physical Therapy: ___ Se ion Segments, 15 Minutes Each Physical Therapy: ___ Session Segments, 15 Minutes Each 67160 08/22 SIMON DALY Physical Therapy Neuromuscular Re-education Physical Therapy Neuromuscular Re-education 67356 08/22 SIMON DALY Postoperative Visit, Without Charge Postoperative Visit, Without Charge 59410 08/16 STEPHANIE COATES [facility] Physical Therapy Neuromuscular Re-education Physical Therapy Neuromuscular Re-education 29337 08/16 MALIK ISAACS Physical Therapy: ___ Se ion Segments, 15 Minutes Each Physical Therapy: ___ Session Segments, 15 Minutes Each 14070 08/16 MALIK ISAACS Physical Medicine Physical Therapy Re-Evaluation Physical Medicine Physical Therapy Re-Evaluation 47849 08/16 MALIK ISAACS Modalities Electrical Stimulation Modalities Electrical Stimulation 23187 08/16 JUANITA SANCHES [facility] Physical Therapy: ___ Se ion Segments, 15 Minutes Each Physical Therapy: ___ Session Segments, 15 Minutes Each 11871 08/01 MALIK ISAACS Physical Medicine Physical Therapy Evaluation Physical Medicine Physical Therapy Evaluation 40756 08/01 MALIK ISAACS Postoperative Visit, Without Charge Postoperative Visit, Without Charge 09620 07/17 STEPHANIE COATES [facility] Physical Therapy Gait Training Physical Therapy Gait Training 45504 06/27 RAISA VILCHIS Crutches, underarm, other than wood, adjustable or fixed, pair, with pads, tips and handgrips 06/27 RAISA VILCHIS [facility] Modalities Traction Modalities Traction 14193 06/09 ABHILASH TYSON 10MIN [facility] Chiropractic Manip Treatmt (CMT) Spinal Three To Four Region Chiropractic Manip Treatmt (CMT) Spinal Three To Four Region 05757 06/09 ABHILASH TYSON [facility] Modalities Electrical Stimulation Modalities Electrical Stimulation 21855 05/31 JUANITA SANCHES [facility] Chiropractic Manip Treatmt (CMT) Spinal One To Two Regions Chiropractic Manip Treatmt (CMT) Spinal One To Two Regions 38876 05/23 ABHILASH TYSON [facility] Modalities Traction Modalities Traction 13314 05/23 ABHILASH TYSON 10MIN [facility] Modalities Traction Modalities Traction 74800 05/09 ABHILASH TYSON 10MIN [facility] Chiropractic Manip Treatmt (CMT) Spinal One To Two Regions Chiropractic Manip Treatmt (CMT) Spinal One To Two Regions 71264 05/09 ABHILASH TYSON [facility] Modalities Electrical Stimulation Modalities Electrical Stimulation 49631 04/04 JUANITA SANCHES [facility] Chiropractic Manip Treatmt (CMT) Spinal One To Two Regions Chiropractic Manip Treatmt (CMT) Spinal One To Two Regions 41859 03/18 ABHILASH TYSON [facility] Acupunct One Or More [place] W/O Stimulation Initial 15 Min Acupunct One Or More [place] W/O Stimulation Initial 15 Min 08425 03/18 NADJA NOLEN Pre tx pain = 0/10 Acupuncture Protocol: MARTINEZ to R Auricle Pat was seated on exam table throughout tx. After a scan of the ear to detect active points, 5 Gold ASP needles were placed to the acupuncture points identified on the above diagram. Post tx pain - 0/10. No bleeding noted at needle insertion sites. [facility] Physical Therapy Gait Training Physical Therapy Gait Training 13680 02/15 ADDI REYES 15 min [facility] Physical Medicine Physical Therapy Re-Evaluation Physical Medicine Physical Therapy Re-Evaluation 43287 02/14 CADY BUNCH [facility] Modalities Vasopneumatic Device Modalities Vasopneumatic Device 28127 02/10 KELI COOPER Physical Medicine - Group Physical Therapy Se ion Physical Medicine - Group Physical Therapy Session 97707 02/10 KELI COOPER Physical Therapy: ___ Se ion Segments, 15 Minutes Each Physical Therapy: ___ Session Segments, 15 Minutes Each 98162 02/10 KELI COOPER Holter Monitor 48-Hour With Physician Review And Interpretation Holter Monitor 48-Hour With Physician Review And Interpretation 57028 02/09 YOU TOPETE Modalities Vasopneumatic Device Modalities Vasopneumatic Device 82332 02/08 KELI COOPER Physical Medicine - Group Physical Therapy Se ion Physical Medicine - Group Physical Therapy Session 05365 02/08 KELI COOPER Physical Therapy: ___ Se ion Segments, 15 Minutes Each Physical Therapy: ___ Session Segments, 15 Minutes Each 41722 02/08 KELI COOPER Modalities Vasopneumatic Device Modalities Vasopneumatic Device 89388 02/01 KELI COOPER Physical Medicine - Group Physical Therapy Se ion Physical Medicine - Group Physical Therapy Session 92508 02/01 KELI COOPER Physical Therapy: ___ Se ion Segments, 15 Minutes Each Physical Therapy: ___ Session Segments, 15 Minutes Each 78524 02/01 KELI COOPER Modalities Vasopneumatic Device Modalities Vasopneumatic Device 60212 01/31 KELI COOPER Physical Medicine - Group Physical Therapy Se ion Physical Medicine - Group Physical Therapy Session 08670 01/31 KELI COOPER Physical Therapy: ___ Se ion Segments, 15 Minutes Each Physical Therapy: ___ Session Segments, 15 Minutes Each 16627 01/31 KELI COOPER Modalities Vasopneumatic Device Modalities Vasopneumatic Device 71583 01/26 KELI COOPER Physical Medicine - Group Physical Therapy Se ion Physical Medicine - Group Physical Therapy Session 23873 01/26 KELI COOPER Physical Therapy: ___ Se ion Segments, 15 Minutes Each Physical Therapy: ___ Session Segments, 15 Minutes Each 42747 01/26 KELI COOPER Modalities Vasopneumatic Device Modalities Vasopneumatic Device 35166 01/24 KELI COOPER Physical Medicine - Group Physical Therapy Se ion Physical Medicine - Group Physical Therapy Session 64019 01/24 KELI COOPER Physical Therapy: ___ Se ion Segments, 15 Minutes Each Physical Therapy: ___ Session Segments, 15 Minutes Each 94677 01/24 KELI COOPER Modalities Vasopneumatic Device Modalities Vasopneumatic Device 90740 01/21 KELI COOPER Physical Medicine - Group Physical Therapy Se ion Physical Medicine - Group Physical Therapy Session 72654 01/21 KELI COOPER Physical Therapy: ___ Se ion Segments, 15 Minutes Each Physical Therapy: ___ Session Segments, 15 Minutes Each 38567 01/21 KELI COOPER Physical Medicine - Group Physical Therapy Se ion Physical Medicine - Group Physical Therapy Session 88142 01/19 KELI COOPER Physical Therapy: ___ Se ion Segments, 15 Minutes Each Physical Therapy: ___ Session Segments, 15 Minutes Each 06834 01/19 KELI COOPER Modalities Vasopneumatic Device Modalities Vasopneumatic Device 73408 01/19 KELI COOPER Osteopathic Manip Treatment (OMT) 1-2 Body Regions Involved Osteopathic Manip Treatment (OMT) 1-2 Body Regions Involved 15094 01/17 CADY BUNCH Occupational Therapy Re-Evaluation Occupational Therapy Re-Evaluation 67406 02/12 ADILENE SHEN Occupational Therapy Re-Evaluation Occupational Therapy Re-Evaluation 60744 01/09 ADILENE SHEN Physical Therapy Oh age Physical Therapy Massage 84454 01/03 RAISA OJEDA Modalities Heat Hot Packs Modalities Heat Hot Packs 67490 01/03 RAISA OJEDA Modalities Ultrasound Modalities Ultrasound 29373 01/03 RAISA OJEDA Modalities Heat Hot Packs Modalities Heat Hot Packs 18387 01/01 RAISA GUADALUPE Modalities Ultrasound Modalities Ultrasound 84376 01/01 RAISA GUADALUPE Physical Therapy Oh age Physical Therapy Massage 15813 01/01 RAISA GUADALUPE Physical Therapy Oh age Physical Therapy Massage 83650 12/27 TERESITA HULL Modalities Heat Hot Packs Modalities Heat Hot Packs 74527 12/27 TERESITA HULL Modalities Ultrasound Modalities Ultrasound 76145 12/27 TERESITA HULL Physical Therapy [facility] Physical Therapy Massage 97172 12/25 RAISA OJEDA Modalities Heat Hot Packs Modalities Heat Hot Packs 92614 12/25 RAISA OJEDA Modalities Ultrasound Modalities Ultrasound 65833 12/25 CANRAISA MEYERS Modalities Heat Hot Packs Modalities Heat Hot Packs 61516 12/13 ELAINA DREW Exercises A isted Exercises For ROM Exercises Assisted Exercises For ROM 79095 12/13 ELAINA DREW Modalities Ultrasound Modalities Ultrasound 34050 12/13 ELAINA DREW Modalities Ultrasound Modalities Ultrasound 01267 12/11 RAISA OJEDA Modalities Heat Hot Packs Modalities Heat Hot Packs 62035 12/11 RAISA OJEDA Exercises A isted Exercises For ROM Exercises Assisted Exercises For ROM 55627 12/[address]Supervised Services Provision Of Special Supplies -Supervised Services Provision Of Special Supplies 70313 12/07 ADILENE SHEN Occupational Therapy Re-Evaluation Occupational Therapy Re-Evaluation 64999 12/07 ADILENE SHEN Modalities Heat Hot Packs Modalities Heat Hot Packs 11510 11/29 ELAINA DREW Physical Therapy [facility] Physical Therapy Massage 59590 11/29 ELAINA DREW Modalities Ultrasound Modalities Ultrasound 11445 11/29 ELAINA DREW Exercises A isted Exercises For ROM Exercises Assisted Exercises For ROM 51023 11/29 ELAINA DREW Modalities Heat Hot Packs Modalities Heat Hot Packs 14379 11/23 TERESITA HULL Physical Therapy [facility] Physical Therapy Massage 18705 11/23 TERESITA HULL Exercises A isted Exercises For ROM Exercises Assisted Exercises For ROM 76012 11/23 TERESITA HULL Modalities Ultrasound Modalities Ultrasound 99557 11/23 TERESITA HULL Modalities Heat Hot Packs Modalities Heat Hot Packs 95360 11/21 ELAINA DREW Physical Therapy [facility] Physical Therapy Massage 19311 11/21 ELAINA DREW Modalities Ultrasound Modalities Ultrasound 02264 11/21 ELAINA DREW Exercises A isted Exercises For ROM Exercises Assisted Exercises For ROM 58632 11/21 ELAINA DREW Physical Therapy Ma age Physical Therapy Massage 91304 11/20 BLANCO CAMEJO Occupational Therapy Re-Evaluation Occupational Therapy Re-Evaluation 13903 11/20 BLANCO CAMEJO Wrist hand orthosis, wrist extension control cock-up, non molded, prefabricated, [id number] 11/20 SHARATH MENDES Modalities Iontophoresis Modalities Iontophoresis 92794 11/15 RAISA GUADALUPE Modalities Iontophoresis Modalities Iontophoresis 58635 11/08 ARABELLA DEL ANGEL Modalities Iontophoresis Modalities Iontophoresis 40820 11/06 TERESITA HULL Modalities Iontophoresis Modalities Iontophoresis 33260 11/03 ARABELLA DEL ANGEL Modalities Iontophoresis Modalities Iontophoresis 10124 10/25 ARABELLA DEL ANGEL Modalities Iontophoresis Modalities Iontophoresis 85960 10/23 ARABELLA DEL ANGEL Modalities Iontophoresis Modalities Iontophoresis 46168 10/[address]Supervised Services Provision Of Special Supplies -Supervised Services Provision Of Special Supplies 14612 10/19 ADILENE SHEN Upper limb orthosis, not otherwise specified 10/19 ADILENE SHEN Physical Therapy Education Orthotics Training Initial 15 Min 10/19 ADILENE SHEN Exercises A isted Exercises For ROM Exercises Assisted Exercises For ROM 71355 10/19 ADILENE SHEN Pulse Oximetry Pulse Oximetry 25758 09/22 VALDEMAR CRUZ Weight Recorded Weight Recorded 09/22 VALDEMAR CRUZ A e ment & Intervention Blood Pre ure Measured Assessment & Intervention Blood Pressure Measured 09/22 VALDEMAR CRUZ Upper limb orthosis, not otherwise specified 08/31 BALTA GARCIA [facility] Weight Recorded Weight Recorded 08/31 MALDONADO MAC [facility] Pulse Oximetry Finger Pulse Oximetry Finger 04073 08/31 MALDONADO MAC Patient Counseling Medical Management Individual Patient Patient Counseling Medical Management Individual Patient 72712 08/31 MALDONADO MAC [facility] A e ment & Intervention Blood Pre ure Measured Assessment & Intervention Blood Pressure Measured 08/31 MALDONADO MAC [facility] Threshold Audiogram (Pure Tone) Automated Threshold Audiogram (Pure Tone) Automated [id number] 08/16 KASSY BERNARDO [facility] Physical Therapy: ___ Se ion Segments, 15 Minutes Each Physical Therapy: ___ Session Segments, 15 Minutes Each 12704 03/01 MALIK ISAACS Physical Medicine Physical Therapy Re-Evaluation Physical Medicine Physical Therapy Re-Evaluation 31729 03/01 MALIK ISAACS Cardiac Stre Test, Phys. Supervision, Interp. And Report Cardiac Stress Test, Phys. Supervision, Interp. And Report 90316 02/28 YOU TOPETE Physical or manipulative therapy performed for maintenance rather than baptism 01/19 MALIK ISAACS Physical Medicine Physical Therapy Re-Evaluation Physical Medicine Physical Therapy Re-Evaluation 21666 01/19 MALIK ISAACS Psychiatric Therapy Individual Approximately 20-30 Minutes Psychiatric Therapy Individual Approximately 20-30 Minutes 97822 01/16 HALEIGH DAVIS [facility] ECG Monitoring Patient Demand Event Recording ECG Monitoring Patient Demand Event Recording 03091 01/09 YOU TOPETE Psych Therapy Indiv Psychophys, W/ Biofeed Approx 20-30 Min Psych Therapy Indiv Psychophys, W/ Biofeed Approx 20-30 Min 80049 01/04 HALEIGH DAVIS [facility] Physical Medicine - Group Physical Therapy Se ion Physical Medicine - Group Physical Therapy Session 31452 01/03 BAKARI REEVES Physical Therapy: ___ Se ion Segments, 15 Minutes Each Physical Therapy: ___ Session Segments, 15 Minutes Each 65837 01/03 BAKARI REEVES Physical Therapy Neuromuscular Re-education Physical Therapy Neuromuscular Re-education 96754 01/03 BAKARI REEVES [facility] Physical Medicine - Group Physical Therapy Se ion Physical Medicine - Group Physical Therapy Session 60065 12/30 BAKARI REEVES [facility] Physical Therapy Neuromuscular Re-education Physical Therapy Neuromuscular Re-education 10107 12/30 BAKARI REEVES [facility] Physical Therapy: ___ Se ion Segments, 15 Minutes Each Physical Therapy: ___ Session Segments, 15 Minutes Each 62115 12/30 BAKARI REEVES Physical Medicine - Group Physical Therapy Se ion Physical Medicine - Group Physical Therapy Session 51880 12/28 BAKARI REEVES [facility] Physical Therapy Neuromuscular Re-education Physical Therapy Neuromuscular Re-education 13690 12/28 BAKARI REEVES [facility] Physical Therapy: ___ Se ion Segments, 15 Minutes Each Physical Therapy: ___ Session Segments, 15 Minutes Each 35526 12/28 BAKARI REEVES [facility] Psych Therapy Indiv Psychophys, W/ Biofeed Approx 20-30 Min Psych Therapy Indiv Psychophys, W/ Biofeed Approx 20-30 Min 05757 12/26 HALEIGH DAVIS [facility] Physical Medicine Physical Therapy Re-Evaluation Physical Medicine Physical Therapy Re-Evaluation 23970 12/22 MALIK ISAACS [facility] Physical Therapy: ___ Se ion Segments, 15 Minutes Each Physical Therapy: ___ Session Segments, 15 Minutes Each 36003 12/22 MALIK ISAACS [facility] Physical Medicine Physical Therapy Evaluation Physical Medicine Physical Therapy Evaluation 69002 12/22 MALIK ISAACS [facility] Physical Medicine - Group Physical Therapy Se ion Physical Medicine - Group Physical Therapy Session 45118 12/21 BAKARI REEVES [facility] Physical Therapy Neuromuscular Re-education Physical Therapy Neuromuscular Re-education 40091 12/21 BAKARI REEVES [facility] Physical Therapy: ___ Se ion Segments, 15 Minutes Each Physical Therapy: ___ Session Segments, 15 Minutes Each 88878 12/21 BAKARI REEVES [facility] Psych Therapy Indiv Psychophys, W/ Biofeed Approx 20-30 Min Psych Therapy Indiv Psychophys, W/ Biofeed Approx 20-30 Min 02028 12/19 HALEIGH DAVIS [facility] Physical Therapy: ___ Se ion Segments, 15 Minutes Each Physical Therapy: ___ Session Segments, 15 Minutes Each 42457 12/19 BAKARI REEVES [facility] Physical Therapy Neuromuscular Re-education Physical Therapy Neuromuscular Re-education 05984 12/13 KAYLYNCatrinaDOMINGUEZ Michael [facility] Physical Medicine - Group Physical Therapy Se ion Physical Medicine - Group Physical Therapy Session 41173 12/13 DOMINGUEZ ENGEL [facility] Physical Therapy: ___ Se ion Segments, 15 Minutes Each Physical Therapy: ___ Session Segments, 15 Minutes Each 22062 12/13 TORO DOMINGUEZ [facility] Physical Medicine - Group Physical Therapy Se ion Physical Medicine - Group Physical Therapy Session 36247 12/09 JOELLEN MURILLO [facility] Mobilization Soft Ti ue Mobilization Soft Tissue 35638 12/09 JOELLEN MURILLO [facility] Physical Therapy: ___ Se ion Segments, 15 Minutes Each Physical Therapy: ___ Session Segments, 15 Minutes Each 40244 12/09 JOELLEN MURILLO [facility] Physical Therapy Neuromuscular Re-education Physical Therapy Neuromuscular Re-education 50698 12/07 BAKARI REEVES [facility] Physical Medicine - Group Physical Therapy Se ion Physical Medicine - Group Physical Therapy Session 83805 12/07 BAKARI REEVES [facility] Physical Therapy: ___ Se ion Segments, 15 Minutes Each Physical Therapy: ___ Session Segments, 15 Minutes Each 29041 12/07 BAKARI REEVES [facility] Psychologic Testing And Report Administered By Architect In Training Psychologic Testing And Report Administered By Architect In Training 14010 12/06 HALEIGH DAVIS Clinician Administered, Interpreted, Reviewed With Patient, And Documented The Following Screening Tools On This Date: GAYATRI-7; AUDIT-C; And PHQ-9 (15 Minutes). [facility] Psychiatric Evaluation Comprehensive Examination Psychiatric Evaluation Comprehensive Examination 06072 12/06 HALEIGH DAVIS [facility] Mobilization Soft Ti ue Mobilization Soft Tissue 44634 11/24 MALIK ISAACS [facility] Physical Medicine Physical Therapy Re-Evaluation Physical Medicine Physical Therapy Re-Evaluation 42436 11/24 MALIK ISAACS [facility] Physical Medicine Physical Therapy Evaluation Physical Medicine Physical Therapy Evaluation 37553 01/17 CADY BUNCH [facility] Psychiatric Evaluation Review of Records and Reports Psychiatric Evaluation Review of Records and Reports 66794 11/17 LUIGI GALLEGOS [place] EEG Technique Exam Recording Awake And Drowsy EEG Technique Exam Recording Awake And Drowsy 61154 07/28 SIMON CARPIO Patient ECG Event Recording - Physician Review & Interpretation Patient ECG Event Recording - Physician Review & Interpretation 54191 06/15 MARY ANN MCRAE ECG Monitoring Patient Demand Event Recording ECG Monitoring Patient Demand Event Recording 61245 06/15 MARY ANN MCRAE Echo For Congenital Defects Complete Transthoracic Echo For Congenital Defects Complete Transthoracic 81051 06/15 ABHILASH ARREDONDO Holter Monitor 24-Hour Holter Monitor 24-Hour 87339 06/01 MARY ANN MCRAE Threshold Audiogram (Pure Tone) Automated Threshold Audiogram (Pure Tone) Automated 0208T 05/07 TAMI MODI Skin Test Anergy tuberculin Skin Test Anergy tuberculin 75612 02/18 JOSE CRUZ BLUM Determination Of Refractive State Determination Of Refractive State 13232 06/13 CHUCHO LEYVA Ophthalmological New Patient Start Comprehensive Care Ophthalmological New Patient Start Comprehensive Care 05013 06/13 CHUCHO LEYVA Visual Jackson Test Extended Examination Visual Jackson Test Extended Examination 86944 06/13 CHUCHO LEYVA Scanning Computerized Ophthalmic Diagnostic Imaging Optic Nerve Scanning Computerized Ophthalmic Diagnostic Imaging Optic Nerve 39863 06/13 CHUCHO LEYVA Audiometry Group Testing Audiometry Group Testing 96790 02/07 DAYAN GALO Influenza Split Virus Vaccine Age 3+ Years Jet Injection 01/24 WILLIE LOPEZ Esophagogastroduod enoscopy With Biopsy 07/25 JOSEP QUINONES Cardiovascular Stre Test Cardiovascular Stress Test 75600 07/03 MARY ANN MCRAE 3-D Rendering Of Ultrasound 3-D Rendering Of Ultrasound 97378 06/26 RAFAEL GUADALUPE Echo For Congenital Defects Transthoracic With M-Mode, Spectral, And Color Flow Echo For Congenital Defects Transthoracic With M-Mode, Spectral, And Color Flow 58332 06/26 RAFAEL GUADALUPE Fiberoptic Laryngoscopy Flexible (diagnostic) Fiberoptic Laryngoscopy Flexible (diagnostic) 55164 02/20 DAVY MACK Threshold Audiogram (Pure Tone) Threshold Audiogram (Pure Tone) 87354 02/12 KELLY FORD Infusion, normal saline solution, sterile (500 mL = 1 unit) 05/14 RAVINDER STONE Injection, sumatriptan succinate, 6 mg (code may be used for Medicare when drug administered under the direct supervision of a physician, not for use when drug is self administered) 05/[address] Supervised Injection Subcutaneous Supervised Injection Subcutaneous 31052 05/14 RAVINDER STONE Intravenous Catheter Placement Intravenous Catheter Placement 57845 05/14 RAVINDER STONE Electrocardiogram Electrocardiogram 10078 04/24 SAM BRAY Echo For Congenital Defects Transthoracic With M-Mode, Spectral, And Color Flow Echo For Congenital Defects Transthoracic With M-Mode, Spectral, And Color Flow 90206 01/29 WILBERTO MCGUIRE 3-D Rendering Of Ultrasound 01/29 WILBERTO MCGUIRE Audiometry Group Testing Audiometry Group Testing 41970 09/05 ANA MARÍA MARIA [facility] Influenza Virus Vaccine Live Intranasal 09/22 SAMIR, BYUNGJOON [facility] Immunization Admin By Intranasal / Oral Route One Vaccine Immunization Admin By Intranasal / Oral Route One Vaccine 88857 09/22 SAMIR, BYUNGJOON [facility] Anthrax Vaccine, For Subcutaneous Use 09/22 SAMIR, BYUNGJOON left arm DoD Immunization Administration One Vaccine Immunization Administration One Vaccine 49925 09/22 SAMIR, BYUNGJOON [facility] Typhoid Vac Acet-Killed, Dried (U.S. ) For Subcut Typhoid Vac Acet-Killed, Dried (U.S. ) For Subcut 89616 08/17 ALBERTASONMAREN N DoD Immunization Administration Each Additional Vaccine 08/17 YASH NYORE N Given by [facility]. [facility] Vaccines Vaccines 07107 08/17 TUTSON MAREN N DoD Immunization Administration One Vaccine Immunization Administration One Vaccine 26731 08/17 YASH NYORE N Given by [facility]. [facility] Anthrax Vaccine, For Subcutaneous Use 08/17 MAREN NY [facility] Audiometry Group Testing Audiometry Group Testing 09775 07/06 MARIAMA ELIZALDE [facility] Immunization Administration Each Additional Vaccine 05/04 LEE ANN DAVE Given by [facility] Skin Test Anergy tuberculin Skin Test Anergy tuberculin 32491 05/04 LEE ANN DAVE [facility] Immunization Administration One Vaccine Immunization Administration One Vaccine 09148 05/04 LEE ANN DAVE Given by [facility] Vaccines Viral Measles, Mumps and Rubella, Live Vaccines Viral Measles, Mumps and Rubella, Live 83152 05/04 LEE ANN DAVE [facility] Therapeutic Drug A ay - Acetaminophen Therapeutic Drug Assay - Acetaminophen 93414 04/30 ANGELICA OVALLE ID and allergies verfiried. Pt given 975 mg of Tylenol PO with 4 ounces of cool water at 11:05 AM as per provider's orders. pt observed for any adverse reaction to adm . medication and relief of symptoms. [facility] Respiratory Equip IPPB Related Equip Nebulizer Respiratory Equip IPPB Related Equip Nebulizer 07142 04/30 VASQUEZ JARRE L 10:16 AM O2 Sat 98%. pt given Albuterol 1 unit dose ( Lot [id number] , Exp Nov 27 ) via Nebulizer. Pt observed x 20 min. for any adverse reaction to adm. medication and relief of symptoms. [facility] IV Infusion For Hydration 31 Minutes To 1 Hour IV Infusion For Hydration 31 Minutes To 1 Hour 10017 04/30 ANNALISE OVALLERE L 10:15 AM IVF # 1 of L/R 1 liter up for infusion. [facility] Intravenous Catheter Placement Intravenous Catheter Placement 73581 04/30 VASQUEZ JARRE L ID and allergies verified. Under asetic technique , IV Angiocath. 18 G. inserted into the left hand for IVFs as per provider's orders, pt tolerated procedure well, site observed for swelling, redness and or c/o discomfort. [facility] Respiratory Equipment IPPB Related Equipment Respiratory Equipment IPPB Related Equipment 86007 04/30 VASQUEZ JARRE L albuteral jet neb [facility] Parenteral Fluids IV Infusion Parenteral Fluids IV Infusion [id number] 04/30 ANNALISE OVALLERE L LR 1000 cc [facility] Patient education, not otherwise cla ified, non-physician provider, group, per se ion 07/31 MANUEL KELISTEVEN Rodriguez [facility] Echo For Congenital Defects Transthoracic With M-Mode, Spectral, And Color Flow Echo For Congenital Defects Transthoracic With M-Mode, Spectral, And Color Flow [id number] 05/13 EUNICE GUADALUPE [facility] EEG Technique Exam Recording Awake And Asleep EEG Technique Exam Recording Awake And Asleep [id number] 05/12 JENNIFER WILLIS [facility] ECG Monitoring Superimposition Scanning DrSierra Interpretation 05/07 TERELL NICOLAS [facility] ECG Performance of Tracing Only ECG Performance of Tracing Only 69632 05/07 TERELL NICOLAS [facility] Cardiovascular Stre Test Cardiovascular Stress Test [id number] 04/27 DHIRAJ BARON [facility] Patient ECG Event Recording - Hookup, Record, Disconnect 04/16 TIM TYSON [facility] EEG Technique Exam Recording Awake And Asleep EEG Technique Exam Recording Awake And Asleep 83704 04/10 JENNIFER WILLIS [facility] Psychiatric Therapy Preparation of Psychiatric Status Report Psychiatric Therapy Preparation of Psychiatric Status Report [id number] 03/05 LINDA VARGEHSE prepared and will be forwarded to unit commander upon receipt of completed self-referral form. Consultation form completed and forwarded to [facility] with results of evaluation. MSE: Provider can find no psychological reasons for the two seizure-like episodes that experienced on -04 Mar 2009, and is referring him back to the [facility] for further medical evaluation. He is psychiatrically cleared to return to duty and for any administrative action deemed appropriate by command. Errol is responsible for his actions. Consultation: has no current or past psychological symptoms that would account for these episodes as described. Suggest that [facility] Provider look further into physiological origins of these two incidents. Errol reported he had another spell yesterday that involved loss of consciousness and vomiting. Evaluation completed. No diagnosis for Sherwood I or Sherwood II. [facility] Psychiatric Evaluation Comprehensive Examination Psychiatric Evaluation Comprehensive Examination [id number] 03/05 LINDA VARGHESE Limits of confidentiality reviewed with pt. Patient verbally acknowledged understanding. Provider conducted intake and psychosocial assessment. (Authorized users see [facility] chart for detailed information.) [facility] Visual Function Screening Visual Function Screening 76782 02/20 KELLY LLAMAS DoD Vaccines Viral Measles, Mumps and Rubella, Live Vaccines Viral Measles, Mumps and Rubella, Live 50934 02/20 TREVOR [place]ES [facility] Tdap Vaccine Tdap Vaccine 62405 02/20 [place] Vaccines Viral Polio, Inactivated (Salk) Vaccines Viral Polio, Inactivated (Salk) 45518 02/20 [place] Meningococcal Polysacch Diphtheria Toxoid Conjugate Vaccine 02/20 [place] Immunization Administration Each Additional Vaccine 02/20 [place] Immunization Administration One Vaccine Immunization Administration One Vaccine 14311 02/20 [place] Hepatitis A And Hepatitis B (Intramuscular Use) Adult Dosage Hepatitis A And Hepatitis B (Intramuscular Use) Adult Dosage 48439 02/20 [place] Audiometry Group Testing Audiometry Group Testing 97269 02/[address].-Supervised Group Educational Services 02/[address] Services Analysis Of Computerized Data Special [employer] Analysis Of Computerized Data 16433 02/18 ANUJ MENDOZA Ear mold/insert, not disposable, any type 02/18 ANUJ MENDOZA Ear Protector Attenuation Measurements Ear Protector Attenuation Measurements 03893 02/18 ANUJ MENDOZA Threshold Audiogram (Pure Tone) Threshold Audiogram (Pure Tone) 49101 02/18 ANUJ MENDOZA Skin Test Anergy Tuberculin Intradermal Skin Test Anergy Tuberculin Intradermal 84892 02/18 RHINA CERRATO Immunization Administration One Vaccine Immunization Administration One Vaccine 93608 02/18 RHINA CERRATO Social History Combined list of available smoking, tobacco, and other social history from [facility] of Defense and Veterans Affairs facilities. Social History Type Response Date Comment [facility] e Tobacco smoking status NHIS VA-TOBACCO USER EVERY DAY 02/20/2024 [facility] History of tobacco use VA-TOBACCO USE WI 30 MIN OF WAKEUP 02/20/2024 [facility] History of tobacco use VA-TOBACCO USER SOME DAYS 01/27/2023 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 History of tobacco use V9 CURRENT TOBACCO USER 03/20/2018 [facility] This section is an empty social history section. [facility]D Assessment and Plan Combined list of future care activities from Department of Defense and Veterans Affairs facilities (e.g., assessment and plan notes, appointments, orders, and referrals). Additional future care activities may be listed in the Plan of Care section. Result Assessment and Plan Date Source Assessment and Plan No data available for this section 03/12/2025 [facility] Functional Status Combined list of recent functional and cognitive assessments recorded at [facility] (PR).PR Functional Benson Measurement (FIM) Scale: 1 = Total Assistance (Subject = 0% +), 2 = Maximal Assistance (Subject = 25% +), 3 = Moderate Assistance (Subject = 50% +), 4 = Minimal Assistance (Subject = 75% +), 5 = Supervision, 6 = Modified Benson (Device), 7 = Complete Benson (Timely, Safely). Assessment Date/Time Source Assessment Type Assessment Skill Assessment Score Assessment Details No data available for this section
--- NOTE | 2025-03-12 17:44 | ED.CHESTPAIN ---
HPI - Chest Pain General Chief Complaint: Chest Pain Stated Complaint: acid reflux Time Seen by Provider: 03/12/25 17:41 Source: patient Mode of arrival: ambulatory Limitations: no limitations History of Present Illness HPI narrative: 49-year-old male, smoker with anxiety / depression, bicuspid aortic, negative cardiac catheterization in 2018, heartburn presents to the ED with -- substernal/epigastric pain for the past 2 weeks. The pain is intermittent. The pain is rated as 5/10. No radiation of the pain. No exacerbating or relieving factors. Patient complains of some shortness of breath. No lightheadedness. -- Chronic gastric reflux for which the patient takes large amounts of antacids. The patient has never had an upper GI endoscopy. -- Recurrent chronic occipital headaches related to migraine. No focal neuro deficit. No nausea /vomiting. No photophobia. MD complaint: chest pain ( Chest pain and epigastric pain.) Onset (ago): week(s) ( Two weeks) Timing of current episode: episodic Prior episodes: Yes Onset: during rest Pain location: substernal and epigastric Pain radiation: none Severity: moderate Pain scale (0-10): 5 Quality: aching Relieving factors: nothing Exacerbating factors: nothing Treatment prior to arrival: none Risk Factors Coronary artery disease risk factors: smoking history Thoracic aortic dissection risk factors: none Related Data Allergies Allergy/AdvReac Type Severity Reaction Status Date / Time tree nut Allergy Unknown Verified 03/12/25 17:40 Review of Systems Review of Systems: All systems reviewed & are unremarkable except as noted in HPI and below Constitutional: Constitutional: Reports as per HPI and Reports no additional constitutional complaints Eyes: Eyes: Reports as per HPI and Reports no additional eye complaints ENT: Reports system reviewed and no additional complaints, except as documented and Reports as per HPI Cardiovascular: Cardiovascular: Reports as per HPI, Reports no additional cardiovascular complaints and Reports chest pain ( substernal chest pain) Respiratory: Respiratory: Reports as per HPI, Reports no additional respiratory complaints and Reports dyspnea Gastrointestinal: Gastrointestinal: Reports as per HPI and Reports no additional gastrointestinal complaints Comments: recurrent gastric reflux with epigastric pain for the past 2 years Genitourinary: Genitourinary: Reports no additional male genitourinary complaints Musculoskeletal: Musculoskeletal: Reports no additional musculoskeletal complaints and Reports as per HPI Integumentary/Breasts: Skin/Breast: Reports system reviewed and no additional complaints, except as docu and Reports as per HPI Neurologic: Reports system reviewed and no additional complaints, except as documented and Reports as per HPI Psychiatric: Psychiatric: Reports no additional psychiatric complaints and Reports as per HPI Endocrine: Endocrine: Reports no additional endocrine complaints and Reports as per HPI Hematologic/Lymphatic: Hematologic/Lymphatic: Reports no additional hematologic/lymphatic complaints and Reports as per HPI Allergic/Immunologic: Allergic/Immunologic: Reports no additional allergic/immunologic complaints and Reports as per HPI [facility] Past Medical History Medical History Deviated septum Bicuspid aortic valve Surgical History Surgical History History of ankle surgery Family History Family History Father Malignant neoplasm of prostate Social History Social History Social History: smoker Smoking packs per day: 0.5 Smoking cigarettes per day: 10.0 Years smoked: 35 Smoking pack-years: 17.50 Smoking status: Current every day smoker Tobacco type: cigarettes Alcohol intake: never Substance use: never Substance use type: does not use Living arrangements: with family Spiritual care concerns: No Exam Const: General: no acute distress Orientation/consciousness: patient oriented x3 Limitations: no limitations HENMT: Head: normal to inspection Ears: external ears normal Face/Nose/Sinus: Normal external nose present Face and sinus: normal facial exam Mouth: Yes Normal oral and palatal mucosa present Throat: posterior oropharynx normal Eyes: Conjunctivae: conjunctivae normal Pupils: Equal, round and reactive pupils present EOM: EOMs intact bilaterally Direct Ophthalmoscopy: no photophobia Neck: Neck: normal visual inspection Chest: Chest palpation & inspection: normal inspection of the chest Resp: Effort & Inspection: normal respiratory effort Auscultation: clear to auscultation bilaterally Cardio: Rate: regular rate Rhythm: regular rhythm GI: Auscultation: normal bowel sounds Other: epigastric tenderness without any rigidity /rebound. : General: Yes no CVA tenderness Back/Spine/Pelvis: Back: no CVA tenderness Skin: General skin exam: normal color Rashes: no rashes Wounds: no wounds Neuro: General: patient oriented x3, moves all extremities, no meningeal signs, no focal motor deficits and CN's II-XI intact bilaterally Cranial nerves: Yes Nystagmus not present Speech: normal speech Gait exam (Neuro): Normal gait present Extrem: General: normal to inspection and no clubbing, cyanosis or edema Psych: Mental Status: mental status grossly normal Affect: normal affect Attitude: cooperative Course Course Emergency Course: Lower substernal/ epigastric pain gastric reflux occipital headaches Vital Signs Vital signs: Vital Signs Temperature 37.1 C 03/12/25 17:37 Pulse Rate 89 03/12/25 17:37 Respiratory Rate 16 03/12/25 17:37 Blood Pressure 143/92 H 03/12/25 17:37 Pulse Oximetry 98 03/12/25 17:37 Oxygen Delivery Room Air 03/12/25 17:37 Temperature 37.1 C 03/12/25 17:37 Pulse Rate 80 03/12/25 18:01 Respiratory Rate 20 03/12/25 18:01 Blood Pressure 143/96 H 03/12/25 18:01 Pulse Oximetry 97 03/12/25 18:01 Oxygen Delivery Room Air 03/12/25 17:37 MDM - Chest Pain MDM Narrative Medical decision making narrative: atypical chest pain gastric reflux occipital headache Differential Diagnosis Differential diagnosis: Likely stable angina and atypical chest pain Medical Records Data Attestation: I reviewed the patient's medical records. Lab Data Attestation: I reviewed the patient's lab results. 03/12/25 18:16 03/12/25 18:16 Labs: Lab Results 03/12/25 Range/Units 18:16 WBC 7.4 (4.8-10.8) K/mm3 RBC 5.32 (4.70-6.10) M/mm3 Hgb 16.6 (14.0-18.0) g/dL Hct 47.4 (40.0-54.0) % MCV 89.1 (78.0-102.0) fL MCH 31.2 H (27.0-31.0) pg MCHC 35.0 (32-36) g/dL RDW 11.6 (11.6-14.4) % Plt Count 259 (150-420) K/mm3 MPV 10.0 (8.7-11.0) fl Immature Gran % (Auto) 0.1 H (0.0-0.0) % Neut % (Auto) 40.4 L (50.0-70.0) % Lymph % (Auto) 43.9 H (18.0-42.0) % [place] % (Auto) 11.9 H (2.0-11.0) % Eos % (Auto) 2.8 (1.0-6.0) % Baso % (Auto) 0.9 (0.0-1.0) % Lymph # (Auto) 3.24 (1.10-4.50) K/mm3 [place] # (Auto) 0.88 (0.10-0.90) K/mm3 Eos # (Auto) 0.21 (0.02-0.50) K/mm3 Baso # (Auto) 0.07 (0.00-0.10) K/mm3 Abs Immat Gran (auto) 0.01 H (0.00-0.00) K/mm3 Absolute Neuts (auto) 2.97 (1.70-7.20) K/mm3 Absolute Nucleated RBC 0.00 (0.00-0.00) K/mm3 Nucleated RBC % 0.0 (0-0.0) % PT 10.4 (9.50-12.1) Seconds INR 0.9 Sodium 141 (137-145) mmol/L Potassium 3.9 (3.4-5.0) mmol/L Chloride 110 H (98-107) mmol/L Carbon Dioxide 25 (22-30) mmol/L Anion Gap 6 (4-12) mmol/L BUN 11 (9-20) mg/dL Creatinine 1.28 (0.7-1.3) mg/dL Estim Creat Clear Calc 66 ml/min Estimated GFR 60 (59 - ) Glucose 80 (65-110) mg/dL Calculated Osmolality 290 (285-295) mOsm/kg Lactic Acid 1.0 (0.4-2.0) mmol/L Calcium 9.0 (8.4-10.2) mg/dL Total Bilirubin 0.7 (0.2-1.3) mg/dL AST 37 (17-59) U/L ALT 49 (6-50) U/L Alkaline Phosphatase 77 (38-126) U/L Troponin I < 0.012 (0.000-0.034) ng/mL Total Protein 7.3 (6.3-8.2) g/dL Albumin 4.3 (3.5-5.1) g/dL Lipase 99 (23-300) U/L ECG Data EKG #1: ECG completion date: 03/12/25 ECG completion time: 18:07 Interpretation: normal sinus rhythm. Normal axis. No ST elevation. Discharge Plan Discharge Clinical Impression: Atypical chest pain, Epigastric pain Patient Disposition: Home Condition: Stable Instructions: Antibiotic Form, Chest Pain (ED), Epigastric Pain (ED) Patient Language: Serbian Prescriptions: New pantoprazole [Protonix] [address] for susp in packet 40 mg PO DAILY Qty: 30 0RF Follow-up/Referrals: Laly Joe MD [Primary Care Provider] - Time of Disposition: 19:07
[2025-03-12 17:45] VITALS: PULSE 80
[2025-03-12 17:46] VITALS: PULSE 79; RESP 17; O2SAT 98
--- NOTE | 2025-03-12 17:59 | ECG_ITS ---
Test Date: 2025-03-12 18:07:40 Measurements Intervals [place] Rate: 77 P: 24 RI: 136 QRS: -3 QRSD: 100 T: 55 QT: 397 QTc: 451 Interpretive Statements SINUS RHYTHM No previous ECG available for comparison Electronically Signed On 03-13-2025 15:15:12 CDT by Kenny Hays M.D.
[2025-03-12 18:01] VITALS: BP 143/96; PULSE 80; RESP 20; O2SAT 97
[2025-03-12 18:19] LABS: Basophils Absolute Auto 0.07 K/mm3 (0.00-0.10); Basophils Percent Auto 0.9 % (0.0-1.0); Eosinophils Absolute Auto 0.21 K/mm3 (0.02-0.50); Eosinophils Percent Auto 2.8 % (1.0-6.0); Hematocrit 47.4 % (40.0-54.0); Hemoglobin 16.6 g/dL (14.0-18.0); Immature Granulocyte Absolute 0.01 K/mm3 (0.00-0.00); Immature Granulocyte Percent A 0.1 % (0.0-0.0); Lymphocytes Absolute Auto 3.24 K/mm3 (1.10-4.50); Lymphocytes Percent Auto 43.9 % (18.0-42.0); Mean Corpuscular Hemoglobin 31.2 pg (27.0-31.0); Mean Corpuscular Volume 89.1 fL (78.0-102.0); Monocytes Absolute Auto 0.88 K/mm3 (0.10-0.90); Monocytes Percent Auto 11.9 % (2.0-11.0); Neutrophils Absolute Auto 2.97 K/mm3 (1.70-7.20); Neutrophils Percent Auto 40.4 % (50.0-70.0); Platelet Count Result 259 K/mm3 (150-420); Red Blood Count 5.32 M/mm3 (4.70-6.10); Red Cell Distribution Width 11.6 % (11.6-14.4); White Blood Count 7.4 K/mm3 (4.8-10.8)
[2025-03-12 18:31] LABS: Alanine Aminotransferase 49 U/L (6-50); Albumin Level 4.3 g/dL (3.5-5.1); Alkaline Phosphatase 77 U/L (38-126); Anion Gap 6 mmol/L (4-12); Aspartate Amino Transferase 37 U/L (17-59); Bilirubin,Total 0.7 mg/dL (0.2-1.3); Blood Urea Nitrogen 11 mg/dL (9-20); Carbon Dioxide 25 mmol/L (22-30); Chloride 110 mmol/L (98-107); Estimated CRCL calculation 66 ml/min; Estimated Glomerular Filt Rate 60; Glucose 80 mg/dL (65-110); INR 0.9; Lipase 99 U/L (23-300); Osmolality Calculated 290 mOsm/kg (285-295); Potassium 3.9 mmol/L (3.4-5.0); Prothrombin Time 10.4 Seconds (9.50-12.1); Sodium 141 mmol/L (137-145); Total Protein 7.3 g/dL (6.3-8.2)
[2025-03-12 18:42] LABS: Troponin I < 0.012 ng/mL (0.000-0.034)
[2025-03-12 19:20] VITALS: BP 143/102; PULSE 78; RESP 20; O2SAT 96
== END 2025-03-12 19:20 | disposition home or self-care (01) ==
PROVIDERS: Emergency Provider Internal Medicine Critical Care Medicine; PCP Internal Medicine
DX: R07.89 Other chest pain (principal); R10.13 Epigastric pain; F17.210 Nicotine dependence, cigarettes, uncomplicated
CPT/HCPCS: 36415; 71045; 80053; 83605; 83690; 84484; 85025; 85610; 93005; 99284

== ENCOUNTER 2025-03-31 02:00 | Day surgery (SDC) | payer OTHER, SELFPAY ==
[2025-03-19 09:18] VITALS: BMI 28.8
[2025-03-31 06:56] VITALS: BP 140/90; PULSE 69; RESP 18; TEMP 36.5; O2SAT 98
[2025-03-31] MEDS: LACTATED RINGERS 1,000 ML 150 ML IV CONT (07:10)
--- NOTE | 2025-03-31 07:42 | P.PNAN_ITS ---
Anes - Initial Pre Proc Eval Procedure: Operation Date: 03/31/25 08:00 Proposed Procedures p Esophagogastroduodenoscopy - Danny Armando DO Date/Time: 03/31/25 07:42 Surgeon: Danny Armando DO Pre Op Diagnosis: gerd Patient Data Age: 49 Gender: M Height: 1.78 m Weight: 92.7 kg Last Vital Signs Temp 36.5 C 03/31/25 06:56 Pulse 69 03/31/25 06:56 Resp 18 03/31/25 06:56 BP 140/90 03/31/25 06:56 Pulse Ox 98 03/31/25 06:56 O2 Del Method Room Air 03/31/25 06:56 Allergies Allergy/AdvReac Type Severity Reaction Status Date / Time tree nut Allergy Unknown Verified 03/31/25 06:52 Home Medications ?Medication ?Instructions ?Recorded ?Confirmed ?Type pantoprazole 40 mg granules 40 mg PO DAILY #30 ea 03/12/25 03/19/25 Rx delayed-release for susp in packet (Protonix) acetaminophen 500 mg capsule 1,000 mg PO Q6H PRN pain 03/19/25 03/19/25 History Patient hx anesthesia problems: none Family hx anesthesia problems: none Results Review: All pre-operative results and documents have been reviewed as part of the pre- operative evaluation. [facility] Past Medical History Medical History Deviated septum Bicuspid aortic valve Surgical History Surgical History History of ankle surgery Family History Family History Father Malignant neoplasm of prostate Social History Social History Social History: smoker Smoking packs per day: 0.5 Smoking cigarettes per day: 10.0 Years smoked: 35 Smoking pack-years: 17.50 Smoking status: Current every day smoker Tobacco type: cigarettes Alcohol intake: never Substance use: never Substance use type: does not use Living arrangements: with family Spiritual care concerns: No Anes - Eval Final PreProcedure Day of Procedure 03/31/25 07:42 Patient weight: overweight Heart: regular rate and rhythm Lungs: decreased breath sounds Airway: Mallampati scale class II Neurological: alert and oriented Last oral intake: >/= 8 hours ASA classification: III Emergent: no Anesthetic plan: proceed Anesthesia type and monitoring: general GIVS and standard monitoring Results Review: All pre-operative results and documents have been reviewed as part of the pre- operative evaluation. Informed Consent: The patient's anesthetic plan and its attendant risks and benefits were discussed with the patient/family/POA. Questions were solicited and answers provided to the satisfaction of the patient/family/POA.
--- NOTE | 2025-03-31 07:58 | PM.IMHP ---
H&P: HPI History of Present Illness Date/Time: 03/31/25 07:58 Chief Complaint: GERD Narrative: this is a 49-year-old man who presents for EGD. He has been experiencing acid reflux and heartburn. He was taking Tums but then was also placed on pantoprazole. His symptoms have significantly improved since starting the pantoprazole. He denies any hematemesis or abdominal pain. He has never had an EGD before. Review of Systems Review of Systems: All systems reviewed & are unremarkable except as noted in HPI and below Constitutional: Constitutional: Denies chills, Denies fever(s), Denies headache(s) and Denies weight loss Eyes: Eyes: Denies change in vision ENT: Denies dizziness, Denies headache(s), Denies neck mass and Denies throat swelling Cardiovascular: Cardiovascular: Denies chest pain, Denies lightheadedness and Denies dyspnea Respiratory: Respiratory: Denies cough, Denies dyspnea and Denies wheezing Gastrointestinal: Gastrointestinal: Denies abdominal pain, Denies change in bowel habits, Denies nausea and Denies vomiting Genitourinary: Genitourinary: Denies hematuria and Denies dysuria Musculoskeletal: Musculoskeletal: Reports as per HPI Integumentary/Breasts: Skin/Breast: Reports as per HPI Neurologic: Denies dizziness and Denies headache(s) Allergic/Immunologic: Allergic/Immunologic: Denies throat swelling and Denies wheezing PMFSH Past Medical History Medical History Deviated septum Bicuspid aortic valve Surgical History Surgical History History of ankle surgery Family History Family History Father Malignant neoplasm of prostate Social History Social History Social History: smoker Smoking packs per day: 0.5 Smoking cigarettes per day: 10.0 Years smoked: 35 Smoking pack-years: 17.50 Smoking status: Current every day smoker Tobacco type: cigarettes Alcohol intake: never Substance use: never Substance use type: does not use Living arrangements: with family Spiritual care concerns: No Meds Home Medications and Allergies Home Medications ?Medication ?Instructions ?Recorded ?Confirmed ?Type pantoprazole 40 mg granules 40 mg PO DAILY #30 ea 03/12/25 03/19/25 Rx delayed-release for susp in packet (Protonix) acetaminophen 500 mg capsule 1,000 mg PO Q6H PRN pain 03/19/25 03/19/25 History Allergies Allergy/AdvReac Type Severity Reaction Status Date / Time tree nut Allergy Unknown Verified 03/31/25 06:52 Vital Signs Vital Signs - 24 hr 03/31/25 06:56 Temperature 97.7 F Pulse Rate 69 Respiratory Rate 18 Blood Pressure 140/90 Pulse Oximetry 98 Oxygen Delivery Room Air Exam Const: General: no acute distress and alert Orientation/consciousness: patient oriented x3 HENMT: Head: normocephalic and atraumatic Ears: hearing grossly normal bilaterally Face/Nose/Sinus: Normal nares present Mouth: Yes Normal oral and palatal mucosa present Eyes: Periorbital: periorbital findings normal Sclera: sclerae normal EOM: EOMs intact bilaterally Neck: Neck: normal visual inspection, no lymphadenopathy and trachea midline Chest: Chest palpation & inspection: normal inspection of the chest Resp: Effort & Inspection: normal respiratory effort Auscultation: clear to auscultation bilaterally Cardio: Jugular venous distension: no JVD Rate: regular rate Rhythm: regular rhythm Heart sounds: S1 normal heart sound present and S2 normal heart sound present Peripheral pulses: Peripheral pulses 2+ throughout GI: Inspection: normal to inspection GI Palp: Yes Soft to palpation, No Tenderness to palpation present (GI), No Guarding due to palpation present (GI) and No Rebound tenderness present Percussion: Yes normal to percussion Auscultation: normal bowel sounds : General: Yes no CVA tenderness Back/Spine/Pelvis: Back: no CVA tenderness Neuro: General: patient oriented x3, no focal motor deficits and CN's II-XI intact bilaterally Cognition (Neuro): normal cognition Speech: normal speech Motor exam (neuro): 5/5 motor strength present throughout Extrem: General: capillary refill normal and no clubbing, cyanosis or edema Assessment and Plan Assessment and plan (1) GERD (gastroesophageal reflux disease): Code(s): K21.9 - Gastro-esophageal reflux disease without esophagitis Status: Acute Assessment and Plan: I have recommended EGD. I have discussed the procedure, risks, benefits, and alternatives. Questions were answered. Patient is agreeable to proceed.
[2025-03-31 08:17] VITALS: BP 108/66; PULSE 69; RESP 22; O2SAT 98
--- NOTE | 2025-03-31 08:17 | S_PTH ---
PATIENT: Serge De Los Santos LOC: [facility] U#:[id number] AGE/SX: 49/M ROOM: RE03/31/[address]: Danny Armando DO : 1975 BED: DIS: 03/31/2025 SPEC #: [id number] RECD: 03/31/25 10:55 STATUS: BRITTANY REQ #: [id number] ZORA: 03/31/25 08:[address]: Danny Armando DEPT: [facility] Surgical RECD BY: Sita Flores ENTERED: 03/31/25 10:55 SP TYPE: Surgical OTHR DR: Laly Joe MD Tissues: A - Duodenal Biopsy B - Gastric Biopsy Procedures: Hematoxylin and Eosin Stain Gross and Microscopic Level 4
[2025-03-31 08:27] VITALS: BP 114/74; PULSE 65; RESP 18; O2SAT 98
[2025-03-31 08:37] VITALS: BP 118/75; PULSE 66; RESP 19; O2SAT 98
[2025-03-31 09:32] LABS: HPYLORIRESULT Negative (Negative)
== END 2025-03-31 08:51 | disposition home or self-care (01) ==
PROVIDERS: PCP Internal Medicine; Visit Provider Surgery
PROC: 0DJ08ZZ Inspection of Upper Intestinal Tract, Via Natural or Artificial Opening Endoscopic (ICD-10-PCS; CPT 43239; principal; 2025-03-31 08:00)
DX: K21.00 Gastro-esophageal reflux disease with esophagitis, without bleeding (principal); K44.9 Diaphragmatic hernia without obstruction or gangrene; K29.80 Duodenitis without bleeding; Q43.8 Other specified congenital malformations of intestine; Q23.81 Bicuspid aortic valve; F17.210 Nicotine dependence, cigarettes, uncomplicated; Z98.890 Other specified postprocedural states; Z90.49 Acquired absence of other specified parts of digestive tract
CPT/HCPCS: 43239; 87081; 88305; J2003; J2704; J7120

== ENCOUNTER 2025-04-14 07:26 | Outpatient (CLI) | payer OTHER, SELFPAY ==
--- NOTE | ~2025-04-14 | CT_ITS ---
Non-contrast CT scan of the Pelvis Clinical indication: Right groin pain, prior hernia repair Technique: 2.5 mm axial scans were obtained through the pelvis without intravenous or oral contrast. Dose reduction technique was used on this scan by utilizing automated exposure control and iterative reconstruction technique. The dose-length product (DLP) was 389.01 mGy-cm. Findings: Urinary bladder unremarkable. No pelvic mass seen. Prostate gland and seminal vesicles are unremarkable. No ascites. Visualized bowel loops are unremarkable. No evidence of bowel obstruction. No ascites. No pelvic lymp hadenopathy seen. No inguinal lymphadenopathy seen. Small fat-containing right inguinal hernia noted. This does musculature unremarkable. Osseous structu res are intact. Impression: Small fat-containing right inguinal hernia. Reviewed, dictated and finalized at [facility]. Impression: Small fat-containing right inguinal hernia.
== END 2025-04-14 07:27 | disposition home or self-care (01) ==
PROVIDERS: PCP Internal Medicine; Visit Provider Surgery
DX: R10.31 Right lower quadrant pain (principal); Z98.890 Other specified postprocedural states; Z87.19 Personal history of other diseases of the digestive system
CPT/HCPCS: 72192